=== PATIENT | male | born 1950 | race Caucasian/White ===

== ENCOUNTER 2017-05-16 12:24 | Inpatient (IN) | payer MEDICARE ==
[2017-05-16] MEDS ORDERED: ISOVUE-370 76%-LOCM 1 ML ONE (12:35)
[2017-05-16 12:59] LABS: Bilirubin Negative (Negative); Blood, Urine Small (Negative); Clarity CLEAR (Clear); Glucose, Urine (Dipstick) Negative (Negative); Leukocyte Negative (Negative); Nitrite Negative (Negative); Protein, Urine (Dipstick) Negative (Neg-Trace); pH, Urine 6.5 (5.0-9.0)
[2017-05-16 13:10] LABS: Bacteria/HPF None Seen HPF (None Seen); Hyaline Casts/LPF 0-3 HYALINE CAST LPF (0-3 Hyaline); Squamous Epithelial None Seen HPF (0-3); WBC/HPF 0-3 HPF (0-3)
[2017-05-16 13:12] LABS: #Basophils 0.1 thou/uL (0.0-0.2); #Eosinphils 0.2 thou/uL (0.0-0.7); #Lymphocytes 1.2 thou/uL (1.20-3.40); #Monocytes 0.8 thou/uL (0.11-0.59); %Basophils 1.4 % (0.0-1.0); %Eosinophils 1.7 % (0.0-10.0); %Lymphocytes 11.5 % (21.0-51.0); %Monocytes 7.7 % (0.0-10.0); %Neutrophils 77.8 % (42.0-75.0); Hemoglobin 15.8 g/dL (14.0-18.0); Mean Corpuscular HGB CONC 30.8 g/dL (32.0-36.0); Mean Corpuscular Hemoglobin 30.6 pg (27.0-31.0); Mean Corpuscular Volume 99.2 fl (80.0-94.0); Mean Platelet Volume 7.7 fL (7.4-10.4); Platelet Count 215 thou/uL (130-400); RBC Distribution Width 12.4 % (11.5-14.5); Red Blood Cell (RBC) Count 5.18 mill/uL (4.70-6.10); White Blood Cell (WBC) Count 10.3 thou/uL (4.8-10.8)
--- NOTE | 2017-05-16 13:37 | RAD ---
FRONTAL RADIOGRAPH CHEST PORTABLE UPRIGHT: Date: 05-16-17 Comparison: 02-01-10 History: Tachycardia. FINDINGS: There is new density in the right lung base. The right hemidiaphragm is elevated. New density is seen medially within the right lung base in the right infrahilar region. There is also new blunting of th e right costophrenic angle. There is increased linear interstitial density bilaterally with pulmonary hyperinflation. IMPRESSION: New pleural and parenchymal opacity in the right lung base suggests pleural effusion and possible mil d volume loss and/or infectious pneumonitis. Recommend follow up PA and lateral imaging of the chest following treatment to document resolution. POS: ANGEL
[2017-05-16 13:43] LABS: ALT (SGPT) 34 U/L (8-55); AST (SGOT) 24 U/L (5-34); Albumin 4.3 g/dL (3.4-4.8); Alkaline Phosphatase 104 U/L (40-150); BUN (Urea Nitrogen) 20 mg/dL (8.4-25.7); Bilirubin, Total 0.5 mg/dL (0.2-1.2); CK (CPK) 134 U/L (30-200); Calc. Creatinine Clearance 0 mL/min (70-130); Calcium 9.7 mg/dL (7.8-10.44); Estimated GFR-MDRD Greater than 90; Globulin 3.2 g/dL (2.4-3.5); Glucose 130 mg/dL (80-115); Lipase 20 U/L (8-78); Protein, Total 7.5 g/dL (5.8-8.1); Troponin I 0.092 ng/mL (< 0.028)
[2017-05-16 13:49] LABS: CKMB 7.6 ng/mL (0-6.6)
--- NOTE | 2017-05-16 13:53 | ULT ---
VENOUS DOPPLER ULTRASOUND OF THE LEFT LOWER EXTREMITY: HISTORY: A 66-year-old male with left lower leg edema and redness, pain. TECHNIQUE: Rader scale, color flow, and spectral Doppler imaging of the deep venous system of the left lower extr emity was performed. FINDINGS: There is good flow, compression, and augmentation noted in the left common femoral, femoral, deep fem oral, popliteal, posterior tibial, and greater saphenous veins. IMPRESSION: No evidence of deep vein thrombosis in the left lower extremity. POS: ANGEL
[2017-05-16 13:55] LABS: Chloride 95 mmol/L (98-107); Potassium 4.2 mmol/L (3.5-5.1); Sodium 142 mmol/L (136-145)
[2017-05-16 14:47] LABS: Anion Gap 13 mmol/L (10-20)
[2017-05-16 14:58] LABS: Carbon Dioxide 35 mmol/L (23-31)
--- NOTE | 2017-05-16 15:37 | CT ---
CT PULMONARY ANGIOGRAM WITH IV CONTRAST AND 3D POSTPROCESSIN05/16/17 HISTORY: Shortness of breath and increased fatigue, lower extremity edema. FINDINGS: There is filling defect in the contrast opacified branch of the right lower lobes. This is consistent with pulmonary embolism. Thoracic aorta demonstrates no evidence of dissection or aneurysm. No pleur al or pericardial effusions are seen. Emphysematous changes are present in the lung crawley. There are mild infiltrates versus atelectatic changes at the lung bases, right greater than left. There are de generative changes in the spine. IMPRESSION: Findings are consistent with pulmonary embolism in the right lower lobe. Discussed over the telephone with the ER physician, Dr. Ilene Mora at 3 p.m. POS: ANGEL
[2017-05-16] MEDS ORDERED: Furosemide 40 MG/4 ML VIAL ONE (16:56)
[2017-05-16] MEDS ORDERED: Enoxaparin Sodium 100 MG/ML SYRINGE ONE (16:57)
[2017-05-16 17:12] LABS: Lactic Acid 0.6 mmol/L (0.5-2.2)
[2017-05-16 17:21] LABS: Troponin I 0.094 ng/mL (< 0.028)
[2017-05-16] MEDS ORDERED: Melatonin 3 MG TAB PO PRN (17:22)
[2017-05-16 18:00] LABS: CKMB 8.5 ng/mL (0-6.6)
[2017-05-16 18:51] LABS: Troponin I 0.088 ng/mL (< 0.028)
[2017-05-16] MEDS ORDERED: Nicotine 14 MG PATCH TD SCH (19:35)
[2017-05-16] MEDS ORDERED: Ondansetron HCl/PF 4 MG/2 ML Vial IVP PRN (19:35)
[2017-05-16] MEDS ORDERED: Calcium Carbonate 500 MG ChewTAB PO PRN (19:35)
[2017-05-16] MEDS ORDERED: Ondansetron ODT 4 MG TAB PO PRN (19:35)
--- NOTE | 2017-05-16 20:26 | HP ---
DATE OF ADMISSION: 05/16/2017 For full history and physical exam please see, Dr. Sue Dumas's dictated H&P. Portions of the histo ry and physical has been repeated by myself and I am in agreement with her assessment and plan as doc umented. HISTORY OF PRESENT ILLNESS: In brief, this patient is a 66-year-old gentleman with a history of rheu matoid arthritis who presents with progressive shortness of breath, fatigue, and lower extremity swel ling. Per the 's report, patient has been progressively declining in status since approximately February when he had some unspecified upper respiratory infection. However, of note, they reported t hat over the last 2 weeks, patient has had progressive shortness of breath with minimal exertion as w ell as lower extremity edema. Over the last 2 days, they reported that his bilateral lower extremiti es become red and painful to the touch. Patient denies any chest pain, palpitations during this faustino od. He, otherwise, reports he has no medical problems and was healthy. PHYSICAL EXAMINATION: GENERAL: Patient is alert and oriented x4 in no apparent distress. He is an obese gentleman. CARDIOVASCULAR: Cardiac exam revealed distant heart sounds. Mildly tachycardic, but regular rhythm. RESPIRATORY: Lungs were poor air movement, but this is likely secondary to body habitus. No wheezes , rales, or rhonchi auscultated. ABDOMEN: Soft, nontender to palpation. Bowel sounds present x4 quadrants. EXTREMITIES: Lower extremities revealed bilaterally equally erythematous lower extremities to the mi d-alvarado. Patient had 3+ pitting edema to the level of the knee bilaterally. Mildly tender to palpati on. Pulses in the dorsalis pedis were equal bilaterally. No palpable cord. LABORATORY DATA: 1. CBC: WBC 10.3, H&H 15.8 and 51.3, platelets 215. 2. Coags showed a D-dimer of 0.90. BMP: Sodium 142, potassium 4.2, chloride 95, bicarbonate 35, BU N 20, creatinine 0.83, glucose 130, lactic acid 2.1. LFTs were overall normal. Cardiac enzymes show ed CK-MB of 7.6, troponin 0.92, and a BNP of 186. 3. Chest x-ray revealed new pleural and parenchymal opacity in the right lung base suggesting pleura l effusion, possible mild volume loss, and/or infectious pneumonitis. 4. Chest and thorax CT angiogram showed pulmonary embolism in the right lower lobe due to a filling defect in the opacified branch of the right lower lobes. 5. Vascular ultrasound of the left lower extremity revealed no evidence of DVT. ASSESSMENT AND PLAN: A 66-year-old gentleman presenting with several weeks of progressive shortness of breath and lower extremity edema. 1. Likely new-onset of congestive heart failure, unspecified subtype. Due to the patient's elevated BNP in his symptoms of worsening edema associated with shortness of breath on exertion, but this pat ient is likely in some new-onset congestive heart failure. Possibly could be due to hypertensive dis ease that is currently untreated. Patient will be admitted to telemetry. We will obtain strict I's and O's, and we will obtain an echocardiogram. Patient will be started on Lasix therapy to help with his severe lower extremity edema. Currently, there is no evidence of volume overload in the lungs, which could point to more right-sided heart failure. However, the patient has no evidence of chronic pulmonary disease on imaging, I do not show like pulmonary embolism has been found during this hospi talization as large enough to result in acute-sided right heart failure. Likely Cardiology consult. 2. Pulmonary embolism as mentioned above, this is not large, but the patient will be started on anti coagulation. Obtain echo as above. Patient had left lower extremity Doppler, which did not reveal a ny presence of any deep venous thrombosis, but his right lower extremity does appear to be larger and we will obtain Dopplers of that leg as well. 3. Elevated CK-MB is likely secondary to the demand ischemia or his pulmonary embolism. Patient domenico l be admitted to telemetry. We will repeat EKG and will trend enzymes. Likely Cardiology consult as above. 4. Hypertension: Patient does not currently have a known diagnosis of hypertension, his blood press ures are highly elevated during this hospitalization. We will start the patient on mild diuresis as well as medications help to get his blood pressure under control.
[2017-05-16 21:21] LABS: Hemoglobin A1c 5.5 % (4.0-6.0)
[2017-05-16 21:43] LABS: Troponin I 0.092 ng/mL (< 0.028)
--- NOTE | 2017-05-16 21:49 | HP-2 ---
CODE STATUS: DNR. This has been discussed with him and his who states they have DNR paperwork at home. PRIMARY CARE PHYSICIAN: Dhruv pagan, none. ATTENDING PHYSICIAN: Andrew Corey MD RESIDENT: Sue Dumas M.D. HISTORIAN: The patient and his . CHIEF COMPLAINT: Bilateral lower extremity redness, acutely worsening. HISTORY OF PRESENT ILLNESS: This is a 66-year-old male with past medical history of fibromyalgia who has not seen a doctor in about 6 months. He presents for acutely worsening bilateral lower extremity erythema this morning. He does report progressive bilateral lower extremity swelling, redness, fatigue, dyspnea with minimal exertion for about 3 months now. The patient states in about February, he came down with a cold or flu-like illness and has never really been able to recover to his same energy level since then. The patient denies PND and orthopnea; however, does note that he has been sleeping in an upright position for about 10 years now. The patient notes for the last approximately 3 weeks, he has been mostly sitting around in a chair because he has had very little energy to do anything. In the ER, the patient had a left lower extremity venous Doppler that did not show DVT. However, he did show a right lower subsegmental pulmonary embolism and was, therefore, admitted to the medicine service. He was given aspirin 325 mg in the ER as well as therapeutic Lovenox. PAST MEDICAL HISTORY: Fibromyalgia. PAST SURGICAL HISTORY: None. ALLERGIES: PENICILLIN. MEDICATIONS: None. FAMILY HISTORY: The patient reports a mom who had coronary artery disease and of a heart attack at age 72. SOCIAL HISTORY: The patient reports a 33-fozy-htay smoking history. He currently smokes about 3 to 4 cigarettes a day. The patient reports social alcohol use. Denies drug use. 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 REVIEW OF SYSTEMS: General: He denies fevers, chills; however, he does report some sleep change states that he has trouble sleeping at night and otherwise the patient reports fatigue as noted above. Eyes: No vision changes or eye pain. ENT: Reports chronic nasal congestion and rhinorrhea. He reports chronic sinus drainage. Respiratory: Reports a cough each morning; however, not necessarily worsening throughout the day. He does report some shortness of breath and exertional dyspnea. Cardiovascular: Denies chest pain, both today and in the remote history. He is positive for the edema as noted above. Denies PND or orthopnea. Gastrointestinal: Denies nausea, vomiting, diarrhea, constipation or abdominal pain. Genitourinary: Denies dysuria or polyuria. Skin: Denies rashes or lesions, but does note the erythema in his bilateral lower extremities. Musculoskeletal: Denies pain or tenderness. Neurologic: Denies weakness or numbness. Psychiatric: Negative. PHYSICAL EXAMINATION: VITAL SIGNS: Blood pressure is 196/98, pulse 100, respirations 25, T-max 98.7, pulse ox 95% on 2 liters, was 86% on room air upon admission. GENERAL: The patient is alert and oriented x4 and really no acute distress; however, he is normally speaking about 4 to 5 word sentences. He is appropriately interactive. EYES: PERRLA, EOMI. ENT: Oropharynx within normal limits; however, he does have some evidence of chronic sinus drainage in the posterior oropharynx. NECK: Supple, without lymphadenopathy or thyromegaly. CARDIOVASCULAR: Regular rate and rhythm without any murmurs noted. RESPIRATORY: Normal effort and no retractions; however, it is noted that he has poor air movement bilaterally with some end expiratory wheezes. SKIN: There is no cyanosis; however, his bilateral lower extremities are warm to the touch and erythematous from about the knee to the ankle. ABDOMEN: Soft and nontender to palpation with bowel sounds present. EXTREMITIES: No clubbing or cyanosis; however, there is 3+ pitting edema in the bilateral lower extremities. MUSCULOSKELETAL: Structure is within normal limits. Strength 5/5 and he has full range of motion. NEUROLOGIC: No focal deficits. Sensation within normal limits and cranial nerves II-XII appear to be intact. LABORATORY DATA: 1. White blood cells 10.3, hemoglobin 15.8, hematocrit 51.3, platelets 215. 2. Sodium 142, potassium 4.2, chloride 95, bicarbonate 35, BUN 20, creatinine 0.83, glucose is 130. GFR is greater than 90. 3. Calcium 9.7, AST 24, ALT 34, alkaline phosphatase 104, total bilirubin 0.5, total protein 7.5, albumin 4.3. Lactic acid 2.1. BNP is 185. 4. CK-MB is 7.6, troponin is 0.092. 5. His UA does shows small blood and 11 to 20 red blood cells. His D-dimer is 0.9. 6. EKG showed little artifact and this being repeated from the ER. 7. Chest x-ray showed new pleural and parenchymal opacity in the right lung base. 8. Left lower extremity Doppler shows no evidence of DVT. 9. CTA of the chest with and without contrast shows pulmonary embolism in the right lower lobe. ASSESSMENT AND PLAN: This is a 66-year-old male with progressive shortness of breath and lower extremity edema. 1. Suspected new onset congestive heart failure. - echo has been ordered as well as a TSH and A1c and lipid panel. We will trend his troponins and CK-MB. We will treat lower extremity edema symptomatically with Lasix 40 mg IV given now and we will follow this again in the morning. We will follow strict I's and O's as well as 1800 mL fluid restriction. Further workup pending the echo results. We will schedule repeat Lasix in the morning. 2. Submassive pulmonary embolism. We will start the patient on therapeutic Lovenox, which has happened in the ER and transitioned to a different anticoagulant such as warfarin or a NOAC during hospitalization. 3. Indeterminate troponin and elevated CK-MB. We will trend and repeat his EKG as well as troponins and CK-MB. He has had no chest pain at this time or in the recent past. 4. Hypertension. The patient has received 40 mg of IV Lasix and we will consider other options acutely pending Lasix response. We will start him on lisinopril 20 mg in the morning. 5. Hematuria. We will repeat his UA during hospitalization. DISPOSITION AND LENGTH OF HOSPITAL STAY: Likely to be 3 days. Symptomatic medications will be provided. History and physical exam as well as management have been discussed with Dr. Corey, who is in agreement. ANA LUISA
[2017-05-16] MEDS: diphenhydrAMINE 50 MG CAP PO PRN (22:25)
--- NOTE | 2017-05-16 22:58 | ULT ---
RIGHT LOWER EXTREMITY VENOUS DUPLEX EXAM: 05/16/17 HISTORY: Leg pain and swelling. Edema. Redness. Real time color doppler evaluation of the right lower extremity is performed from groin to calf. This includes evaluation of the common femoral, superficial and profunda femoral, saphenous, popliteal, a nd trifurcation veins. This shows a patent deep venous system. There is normal compressibility and au gmentation. There is no evidence of DVT. IMPRESSION: No evidence of DVT of the right lower extremity. POS: ANGEL
[2017-05-17 01:57] LABS: Actual Bicarbonate (HCO3a) 44.8 mEq/L (22-26); Base Excess (BEa) 11.7 mEq/L (0 (+/-) 2.5); CO2 Tension 108.5 mmHg (35.0-45.0); Hematocrit-ABG 55.4 % (42.0-52.0); Hemoglobin (Hb) 15.6 g/dL (14.0-18.0); O2 Tension (PaO2) 69.2 mmHg (80.0-100.0); pH, Arterial 7.23 (7.35-7.45)
[2017-05-17 01:58] LABS: ALV-art Gradient 50.055 (0-20); Calcium, Ionized 1.2 mmol/L (1.12-1.30); Puncture Site LRA
[2017-05-17] MEDS ORDERED: Furosemide 40 MG/4 ML VIAL SLOW IVP SCH (02:00)
[2017-05-17 02:22] LABS: Anion Gap 17 mmol/L (10-20); BUN (Urea Nitrogen) 19 mg/dL (8.4-25.7); Calc. Creatinine Clearance 141 mL/min (70-130); Calcium 9.7 mg/dL (7.8-10.44); Carbon Dioxide 37 mmol/L (23-31); Chloride 93 mmol/L (98-107); Estimated GFR-MDRD 88; Glucose 144 mg/dL (80-115); Potassium 4.9 mmol/L (3.5-5.1); Sodium 142 mmol/L (136-145)
[2017-05-17 02:27] LABS: Troponin I 0.062 ng/mL (< 0.028)
[2017-05-17 02:32] LABS: CKMB 9.8 ng/mL (0-6.6)
--- NOTE | 2017-05-17 02:35 | PDOC.EVN ---
Event Note - Event Note Event Note: Keely burch called about 01:45 due to AMS, tachycardia, and increasing SOB. Residents responded. Pt sitting up at bedside. BP 140/80s, HR 120s, resp 24, O2 92% on 4L NC. Pt A&O x1. Auscultation revealed diminished breath sounds bilaterally with shallow inspiratory effort. 3+ pitting edema up to knees bilaterally. POC glucose wnl. Stat ABG, BMP, cardiac enzymes, EKG and CXR ordered. Bedside EKG revealed sinus tachycardia. CXR showed worsening bilateral effusions with blunting of angles. Lasix 40 mg IV ordered. ABG revealed respiratory acidosis with pH 7.23 and pCO2 108. Decision was made to place pt on bipap and transfer to IMCU. Pt's was at bedside, kept informed and was agreeable with plan. Will continue to monitor closely. <Adeel Parker - Last Filed: 05/17/17 02:27> Attending Addendum - Attending Addendum I personally evaluated the patient and discussed the management with Dr. Parker. Events reviewed. Labs and x-ray reviewed. CXR with worsening pleural effusion; now bilateral. ABG with [id number]. Agree with transfer to IMCU and trial of BiPAP. Additional lasix dose given. Monitor I/Os. Continue lovenox for PE. <Aditi Jennings - Last Filed: 05/17/17 02:39>
[2017-05-17 03:47] LABS: Bilirubin Negative (Negative); Blood, Urine Moderate (Negative); Clarity CLEAR (Clear); Glucose, Urine (Dipstick) Negative (Negative); Leukocyte Negative (Negative); Nitrite Negative (Negative); Protein, Urine (Dipstick) 30 mg/dL (Neg-Trace); Specific Gravity, Urine 1.026 (1.002-1.036); Urobilinogen 0.2 mg/dL (0.2-1.0); pH, Urine 5.5 (5.0-9.0)
[2017-05-17 03:48] LABS: Bacteria/HPF None Seen HPF (None Seen); Hyaline Casts/LPF 0-3 HYALINE CAST LPF (0-3 Hyaline); Pathc Cast-AUWi Flag 0.27 (0-2.49); Squamous Epithelial None Seen HPF (0-3); WBC/HPF 0-3 HPF (0-3)
[2017-05-17 05:15] LABS: Hemoglobin 15.3 g/dL (14.0-18.0); Platelet Count 197 thou/uL (130-400)
[2017-05-17 05:20] LABS: Anion Gap 12 mmol/L (10-20); BUN (Urea Nitrogen) 22 mg/dL (8.4-25.7); Calc. Creatinine Clearance 138 mL/min (70-130); Calcium 9.3 mg/dL (7.8-10.44); Carbon Dioxide 37 mmol/L (23-31); Chloride 95 mmol/L (98-107); Cholesterol 140 mg/dl (< 200 Desired); Estimated GFR-MDRD 86; Glucose 127 mg/dL (80-115); HDL Cholesterol 47 mg/dL (>60 Neg Risk); LDL Cholesterol, Calculated 66 mg/dL; Potassium 5.3 mmol/L (3.5-5.1); Sodium 139 mmol/L (136-145); Triglycerides 137 mg/dL (Less than 150)
--- NOTE | 2017-05-17 05:43 | PDOC.EVN ---
Event Note - Event Note Event Note: Follow up for Code green from earlier in night. Patient's HR now in 80s, BP 130s /70s, and O2 93% on BIPAP. Auscultation reveal diminished breath sounds bilaterally. Patient is overall fatigued and mentation not tested at this time. I&Os not documented as of yet, but hanna in place. Patient resting comfortably in bed. not at bedside at this time. Ordered repeat ABG for this morning. Will continue current plan of care.
[2017-05-17] MEDS: Furosemide 40 MG/4 ML VIAL SLOW IVP SCH ×2 (06:30→13:59)
--- NOTE | 2017-05-17 07:50 | RAD ---
PORTABLE UPRIGHT FRONTAL CHEST RADIOGRAPH: Date: 05-17-17 Comparison: 05-16-17 History: Code Green patient. Unresponsive patient. FINDINGS: There is increased density within the right lung base with obscuration of the right hemidiaphragm and right heart border as well as blunting of the right costophrenic angle suggesting nonspecific pleura l and parenchymal opacity, slightly worse since the prior exam. There is mild increased linear inters titial density, stable. No pneumothorax is seen. No lobar consolidation or alveolar edema. IMPRESSION: Increased pleural and parenchymal opacity in the right lung base, nonspecific and slightly worsened. Continued follow up advised. POS: ANGEL
[2017-05-17] MEDS: Enoxaparin Sodium 120 MG/0.8 ML SYRINGE SC SCH ×2 (08:45→20:08)
[2017-05-17] MEDS: Nicotine 14 MG PATCH TD SCH (08:47)
[2017-05-17] MEDS: Lisinopril 20 MG TAB PO SCH (08:48)
--- NOTE | 2017-05-17 08:49 | PDOC.FM ---
- Subjective Subjective: Patient sleeping soundly when I visited him this morning. WHen awoken, he seemed very confused and did not want to keep the bipap on. He was oriented to person only and thought he was in [place] but upon requestioning knew he was in [place]. He denies chest pain or SOB. He just states that he is good. He apologized several times for cursing at the nurse. A code green was called on him last night due to confusion. He maintains O2 sats well however his bicarb on ABG found to be 102. Decision made to place bipap and move to IMCU at that time. - Objective MAR Reviewed: Yes Vital Signs & Weight: Vital Signs (12 hours) Temp Pulse Pulse Resp Resp BP BP 05/17/17 08:19 97.5 F L 96 16 05/17/17 07:47 97.5 F L 96 16 126/63 05/17/17 04:26 98 22 H 111/56 L 05/17/17 02:35 99.8 F H 98 22 H 05/17/17 02:30 99.8 F H 120 H 26 H 142/78 H 05/17/17 02:20 110 H 05/17/17 01:55 127 H 20 151/78 H 05/17/17 01:36 119 H 20 151/78 H Pulse Ox Pulse Ox Pulse Ox 05/17/17 08:19 96 05/17/17 07:47 93 L 05/17/17 04:26 93 L 05/17/17 02:35 90 L 05/17/17 02:30 90 L 05/17/17 02:20 05/17/17 01:55 94 L 05/17/17 01:36 89 L 93 L Weight Weight 109.044 kg I&O: 05/16/17 05/17/17 05/18/17 06:59 06:59 06:59 Output Total 650 Balance -650 Result Diagrams: 05/17/17 04:18 05/17/17 04:18 <Sue Dumas - Last Filed: 05/17/17 08:46> - Objective Vital Signs & Weight: Vital Signs (12 hours) Temp Pulse Pulse Resp Resp BP BP 05/17/17 11:42 75 05/17/17 11:00 98.2 F 92 18 05/17/17 09:17 114 H 05/17/17 08:48 159/73 H 05/17/17 08:19 97.5 F L 96 16 05/17/17 07:47 97.5 F L 96 16 05/17/17 04:26 98 22 H 05/17/17 02:35 99.8 F H 98 22 H 05/17/17 02:30 99.8 F H 120 H 26 H 05/17/17 02:20 110 H 05/17/17 01:55 127 H 20 05/17/17 01:36 119 H 20 151/78 H BP Pulse Ox Pulse Ox Pulse Ox 05/17/17 11:42 05/17/17 11:00 141/67 H 93 L 05/17/17 09:17 05/17/17 08:48 05/17/17 08:19 96 05/17/17 07:47 126/63 93 L 05/17/17 04:26 111/56 L 93 L 05/17/17 02:35 90 L 05/17/17 02:30 142/78 H 90 L 05/17/17 02:20 05/17/17 01:55 151/78 H 94 L 05/17/17 01:36 89 L 93 L Weight Weight 109.044 kg I&O: 05/16/17 05/17/17 05/18/17 06:59 06:59 06:59 Output Total 650 Balance -650 Result Diagrams: 05/17/17 10:14 05/17/17 04:18 <Andrew Corey - Last Filed: 05/17/17 12:12> Phys Exam - Physical Examination Constitutional: NAD poor air movement with diminished breath sounds in BLL. some mild end expiratory wheezes. Cardiovascular: RRR, no significant murmur Gastrointestinal: soft, non-tender, positive bowel sounds 3+ pitting edema in BLE Neurological: non-focal, normal sensation, moves all 4 limbs Psychiatric: normal affect Deviation from normal: only oriented appropriately to person, can recall place if requestioned. <Sue Dumas - Last Filed: 05/17/17 08:46> Dx/Plan (1) Acute hypercapnic respiratory failure Code(s): J96.02 - ACUTE RESPIRATORY FAILURE WITH HYPERCAPNIA Status: Acute Plan: Acute worsening overnight with pCO2 elevation to 102. Repeat ABG this AM. Satting well on 2 lts NC at this time, albeit suspect chronic CO2 retention. Likely underlying lung disease with 40 pk year smoking hx along with current PE. Will offer trial of duoneb. Would also benefit from outpt sleep study. (2) Suspected congestive heart failure Code(s): Z03.89 - ENCNTR FOR OBS FOR OTH SUSPECTED DISEASES AND COND RULED OUT Status: Acute Plan: pending echo. Will treat with aggressive diuresis- IV lasix BID. lipid panel wnl (LDL <100) TSH wnl. (3) HTN (hypertension) Code(s): I10 - ESSENTIAL (PRIMARY) HYPERTENSION Status: Acute Plan: initiate lisinopril 20 mg (4) Pulmonary embolism Code(s): I26.99 - OTHER PULMONARY EMBOLISM WITHOUT ACUTE COR PULMONALE Status : Acute Plan: on therapeutic lovenox. Will hold off on NOAC until further evaluation for suspected CHF. (5) Elevated troponin I measurement Code(s): R74.8 - ABNORMAL LEVELS OF OTHER SERUM ENZYMES Status: Acute Plan: likely demand ischemia with PE. downtrending trop (6) Hematuria Code(s): R31.9 - HEMATURIA, UNSPECIFIED Status: Acute Plan: needs to see urology outpt. (7) Obesity (BMI 30-39.9) Code(s): E66.9 - OBESITY, UNSPECIFIED Status: Chronic Plan: A1C 5.5 (8) Tobacco abuse Code(s): Z72.0 - TOBACCO USE Status: Chronic Plan: nicotine offered and smoking cessation encouraged. <Sue Dumas - Last Filed: 05/17/17 08:46> Attending Addendum - Attending Addendum I personally evaluated the patient and discussed the management with Dr. Dumas. I agree with the History, Examination, Assessment and Plan documented above with any addition or exceptions noted below. Patient had acute decline overnight and is now hypoxic and hypercapnic requiring Bipap therapy. His ABG is not significantly improved with this therapy. Continue to treat with diuretics for this likely new onset CHF. Echo pending. Cardiology and Pulm on board. He is diuresing well. Mentation somewhat improved, will give Haldol for agitation on Bipap. Will clarify code status with though he and her both explicitly said yesterday that he is a DNR and that they have signed papers at home. <Andrew Corey R - Last Filed: 05/17/17 12:12>
[2017-05-17 09:21] LABS: Actual Bicarbonate (HCO3a) 46.2 mEq/L (22-26); Base Excess (BEa) 13.6 mEq/L (0 (+/-) 2.5); CO2 Tension 105.9 mmHg (35.0-45.0); Hematocrit-ABG 52.9 % (42.0-52.0); Hemoglobin (Hb) 14.9 g/dL (14.0-18.0); O2 Tension (PaO2) 64.6 mmHg (80.0-100.0); pH, Arterial 7.26 (7.35-7.45)
[2017-05-17 09:22] LABS: ALV-art Gradient 32.785 (0-20); Calcium, Ionized 1.2 mmol/L (1.12-1.30); Puncture Site L.R.
[2017-05-17] MEDS ORDERED: Haloperidol Lactate 5 MG/ML VIAL SLOW IVP SCH (10:15)
[2017-05-17 10:44] LABS: #Eosinphils 0.1 thou/uL (0.0-0.7); #Lymphocytes 0.7 thou/uL (1.20-3.40); #Monocytes 0.9 thou/uL (0.11-0.59); #Neutrophils 9.7 thou/uL (1.40-6.50); %Basophils 0.1 % (0.0-1.0); %Eosinophils 0.7 % (0.0-10.0); %Lymphocytes 6.5 % (21.0-51.0); %Monocytes 7.9 % (0.0-10.0); %Neutrophils 84.7 % (42.0-75.0); Hemoglobin 14.5 g/dL (14.0-18.0); MDiff Complete? YES; Macrocytosis SLIGHT = 6-15 cells (100X) (0-5/hpf); Mean Corpuscular HGB CONC 29.5 g/dL (32.0-36.0); Mean Corpuscular Hemoglobin 29.7 pg (27.0-31.0); Mean Platelet Volume 7.4 fL (7.4-10.4); PLT Morphology Comment Appears Adequate; Platelet Count 209 thou/uL (130-400); RBC Distribution Width 12.4 % (11.5-14.5); Red Blood Cell (RBC) Count 4.87 mill/uL (4.70-6.10); Stomatocytes MODERATE= 6-15 cells (100X) (0-1/hpf); White Blood Cell (WBC) Count 11.5 thou/uL (4.8-10.8)
--- NOTE | 2017-05-17 12:47 | PDOC.EVN ---
Event Note - Event Note Event Note: I spoke with patient's about his current status. I informed her of his decompensation and respiratory status and that intubation would be recommended. Risks that he may need a tracheostomy upon weaning were discussed and she stated she would want him to be intubated for this acute decompensation in respiratory status. She is currently in [place] and will try to be here as soon as her tire is repaired. She was thankful for the call. I have discussed this with Dr. Aguilera and plan to transfer him to the ICU and attempt intubation later this afternoon. We will repeat ABG at 1 pm and make decision pending this.
[2017-05-17 13:14] LABS: pH, Arterial 7.28 (7.35-7.45)
[2017-05-17 13:15] LABS: Actual Bicarbonate (HCO3a) 45.9 mEq/L (22-26); Base Excess (BEa) 14.2 mEq/L (0 (+/-) 2.5); CO2 Tension 99.2 mmHg (35.0-45.0); Calcium, Ionized 1.2 mmol/L (1.12-1.30); Hematocrit-ABG 49.6 % (42.0-52.0); Hemoglobin (Hb) 14.3 g/dL (14.0-18.0); O2 Tension (PaO2) 65.5 mmHg (80.0-100.0)
[2017-05-17 13:16] LABS: Puncture Site L.R.
[2017-05-17] MEDS ORDERED: Carvedilol 3.125 MG TAB PO SCH (18:45)
--- NOTE | 2017-05-17 21:12 | CON ---
DATE OF CONSULTATION: 05/17/2017 HISTORY OF PRESENT ILLNESS: Jt Cedillo is a 66-year-old white male, who was in good health until 02/2017. His states that he had an upper respiratory infection complicated by possible sinusitis. He then began to have problems with his legs becoming more edematous, more red, and painful. This progressively worsened to where he started to have increased shortness of breath over the past 3-4 days with minimal exertion. He also could not lie flat in bed. Ultimately, he came to the emergency room, was placed on BiPAP, and has been diuresed with improvement in his breathing. For a time, it was felt that he might need to be intubated and there was discussion in regards to that, because he is listed as DNR at the present time. He denies any chest discomfort. He denies any previous cardiac history. Chest CTA did reveal small pulmonary embolism and he has been placed on Lovenox. PAST MEDICAL HISTORY: Fibromyalgia. No history of hypertension, diabetes, or hypercholesterolemia. MEDICATIONS: None. ALLERGIES: PENICILLIN. OPERATIONS: None. SOCIAL HISTORY: Smokes 1 to 1-1/2 packs per day. He does not drink alcohol. FAMILY HISTORY: Mother of heart attack at age 72. REVIEW OF SYSTEMS: Twelve-point review of systems is otherwise unremarkable. PHYSICAL EXAMINATION: VITAL SIGNS: Blood pressure 155/80, pulse of 106. HEENT: PERRL. NECK: Supple. CHEST: Reveals distant breath sounds. CARDIOVASCULAR: S1 and S2 are normal without any S3, S4, or murmurs. ABDOMEN: Obese. Normal bowel sounds without tenderness or organomegaly. EXTREMITIES: Revealed bilateral erythema and warmth to the knee. 2 to 3+ pretibial edema. NEUROLOGIC: Grossly intact. SKIN: Warm and dry. LABORATORY DATA: EKG revealed sinus tachycardia with a rate of 110 per minute with incomplete right bundle-branch block. Chest x-ray reveals cardiomegaly, possible right effusion, increased pulmonary vascularity. Hemoglobin 14.5, hematocrit 49, white count 11,500, platelets 209,000. D-dimer is 0.90. PH of 7.23, pCO2 of 108.5, pO2 of 69.2. The pO2 is improved to 99.2. Sodium 139, potassium 5.3, chloride 95, carbon dioxide 37, BUN 22, creatinine 0.89. CK-MB 9.8, troponin I 0.094, CK 134. Cholesterol 140, triglycerides 137, HDL 47, LDL 66. TSH is normal. BNP is 185.9. IMPRESSION: 1. Acute respiratory failure with significant hypercapnia, probably related to chronic obstructive pulmonary disease exacerbation. 2. Possible cardiomyopathy. He has a history of probable viral syndrome in February and worsening edema, as well as increased shortness of breath. 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 3. Probable hypertension. 4. Demand ischemia. 5. Pulmonary embolism in the right lower lobe; however, venous Doppler study was negative for DVT. 6. Smoker. PLAN: The patient will continue to be diuresed. With his current blood pressure, he will be started on low-dose carvedilol. He will be continued with Lovenox 1 mg/kg b.i.d.; however, I doubt that it is playing a significant role in his current dyspnea. Echocardiogram will be performed to assess left ventricular function. MTDD
[2017-05-17] MEDS: Haloperidol Lactate 5 MG/ML VIAL IM PRN (21:13)
[2017-05-17] MEDS: diphenhydrAMINE 50 MG CAP PO PRN (23:36)
[2017-05-18] MEDS: Haloperidol Lactate 5 MG/ML VIAL IM PRN ×2 (02:46→07:56)
[2017-05-18 04:58] LABS: Hemoglobin 14.3 g/dL (14.0-18.0); Platelet Count 183 thou/uL (130-400)
[2017-05-18 05:15] LABS: BUN (Urea Nitrogen) 25 mg/dL (8.4-25.7); Calc. Creatinine Clearance 125 mL/min (70-130); Estimated GFR-MDRD 84; Glucose 109 mg/dL (80-115)
[2017-05-18] MEDS: Furosemide 40 MG/4 ML VIAL SLOW IVP SCH (05:18)
[2017-05-18 05:26] LABS: Anion Gap 16 mmol/L (10-20); Carbon Dioxide 37 mmol/L (23-31); Chloride 91 mmol/L (98-107); Potassium 4.6 mmol/L (3.5-5.1); Sodium 139 mmol/L (136-145)
--- NOTE | 2017-05-18 06:05 | CON ---
DATE OF CONSULTATION: 05/17/2017 HISTORY OF PRESENT ILLNESS: Mr. Cedillo is a 66-year-old male who according to his is very functional prior to this admission. He presented with 3 months of lower extremity erythema according to the but then developed change in mental status after he was admitted, so he was transferred to the critical care intermediate care unit. He had a CT angiogram for this change in mental status and hypoxemia, which showed a filling defect in his right lower lobe. Doppler venography showed nothing in his legs, but only his left leg was ultrasounded. Follow up ultrasound of his right lower extremity was done, which did not show a clot either. According to the , he has been reasonably healthy. He actually has a history of fibromyalgia and was seeing one of the pain physicians in [facility], but he is no longer seeing that physician. He has not been hospitalized here before. PAST MEDICAL HISTORY: Remarkable for being told he had asbestosis in the past. PAST SURGICAL HISTORY: He has never had any operations. SOCIAL HISTORY: He drinks occasionally. He is a smoker. He and his split a pack of cigarettes every day. He smokes more than she does. No history of drug use. ALLERGIES: Reported allergy to PENICILLIN. FAMILY HISTORY: Lung disease at an early age. PHYSICAL EXAMINATION: VITAL SIGNS: He had noninvasive ventilation placed. He is afebrile this evening, his heart rate is 104, respiratory rate is 22, oximetry is 90% on BiPAP. Apparently, around 6:00, he was switched to 3 liter nasal cannula. Blood pressure 155/80. HEAD AND NECK: Unremarkable. LUNGS: Clear and distant. HEART: Regular rhythm. ABDOMEN: Soft. EXTREMITIES: Without asymmetry. LABORATORY DATA: White count 11.5, hemoglobin 14.5, platelets 209,000. Sodium 139, potassium 5.3, chloride 95, bicarbonate 37, BUN 22, creatinine 0.89. Blood gas first pH 7.33, pCO2 of 190, second pH 7.26, pCO2 of 105, third pH 7.28, pCO2 of 99, pO2 of 65. IMPRESSION: 1. Obesity hypoventilation syndrome. 2. ? underlying obstructive lung disease. Once he is stable, he needs PFTs. 3. Ongoing tobacco use. 4. Deconditioning. 5. History of chronic pain and fibromyalgia. 6. Reported history of asbestosis. Reviewed his chest radiograph, he appears to have an elevated right hemidiaphragm and it is hazy in its right base. Reviewed CT of his chest, I am not sure if this is a true positive pulmonary embolism, but we will have to treat this for a minimum of 3 months. Bibasilar atelectasis, some of this is created by his abdominal girth. I think he should stay on BiPAP overnight, then be reassessed in the morning with blood gas. This is a 50-minute consult, greater than 50% of the time spent coordinating care on the unit after interviewing family and examining the patient, reviewing all the radiographs. ANA LUISA
[2017-05-18] MEDS: Carvedilol 3.125 MG TAB PO SCH ×2 (07:55→16:28)
[2017-05-18] MEDS: Nicotine 14 MG PATCH TD SCH (09:14)
[2017-05-18] MEDS: Lisinopril 20 MG TAB PO SCH (09:14)
[2017-05-18] MEDS: Enoxaparin Sodium 120 MG/0.8 ML SYRINGE SC SCH ×2 (09:17→20:12)
--- NOTE | 2017-05-18 09:26 | PDOC.FM ---
- Subjective Subjective: Patient very agitated again this morning. He is disoriented, only knows name. He wants to get out of bed to urinate. No acute events overnight and remained on bipap all night. - Objective Vital Signs & Weight: Vital Signs (12 hours) Temp Pulse Resp BP BP Pulse Ox 05/18/17 09:14 117/60 05/18/17 08:00 98.3 F 95 28 H 98 05/18/17 07:20 98.3 F 95 28 H 139/70 98 05/18/17 04:00 97.2 F L 82 18 104/60 97 05/18/17 03:16 90 05/18/17 00:07 99.7 F H 104 H 22 H 157/65 H 97 05/17/17 22:10 99 Weight Weight 108.182 kg I&O: 05/17/17 05/18/17 05/19/17 06:59 06:59 06:59 Intake Total 1335 Output Total 650 2625 Balance -650 -1290 Result Diagrams: 05/18/17 04:39 05/18/17 04:39 <Sue Dumas - Last Filed: 05/18/17 10:49> - Objective Vital Signs & Weight: Vital Signs (12 hours) Temp Pulse Resp BP BP Pulse Ox 05/18/17 09:14 117/60 05/18/17 08:00 98.3 F 95 28 H 98 05/18/17 07:20 98.3 F 95 28 H 139/70 98 05/18/17 04:00 97.2 F L 82 18 104/60 97 05/18/17 03:16 90 05/18/17 00:07 99.7 F H 104 H 22 H 157/65 H 97 Weight Weight 108.182 kg I&O: 05/17/17 05/18/17 05/19/17 06:59 06:59 06:59 Intake Total 1335 Output Total 650 2625 Balance -650 -1290 Result Diagrams: 05/18/17 04:39 05/18/17 04:39 <He Nam - Last Filed: 05/18/17 11:10> Phys Exam - Physical Examination agitated mild diffuse wheezing, very poor air movement, shallow breathing Cardiovascular: RRR, no significant murmur Gastrointestinal: soft, non-tender, positive bowel sounds 2+ pitting edema Deviation from normal: confused, only oriented to person. <Sue Dumas - Last Filed: 05/18/17 10:49> Dx/Plan (1) Acute hypercapnic respiratory failure Code(s): J96.02 - ACUTE RESPIRATORY FAILURE WITH HYPERCAPNIA Status: Acute Plan: Likely 2/2 underlying pumonary disease and KISHAN and obesity hypoventilation syndrome. On bipap 24 hrs now and ABG not improved this morning. Have recommended intubation and tracheostoomy with patient's and she agrees to proceed with this. Will discuss with Dr. Aguilera. (2) HTN (hypertension) Code(s): I10 - ESSENTIAL (PRIMARY) HYPERTENSION Status: Acute Plan: controlled on coreg and lisinopril (3) Pulmonary embolism Code(s): I26.99 - OTHER PULMONARY EMBOLISM WITHOUT ACUTE COR PULMONALE Status : Acute Plan: on therapeutic lovenox. Will hold off on NOAC until further evaluation for suspected CHF. (4) Elevated troponin I measurement Code(s): R74.8 - ABNORMAL LEVELS OF OTHER SERUM ENZYMES Status: Acute Plan: likely demand ischemia with PE. downtrending trop (5) Hematuria Code(s): R31.9 - HEMATURIA, UNSPECIFIED Status: Acute Plan: needs to see urology outpt but if cont to worsen may do it inpt.trend H/H (6) Obesity (BMI 30-39.9) Code(s): E66.9 - OBESITY, UNSPECIFIED Status: Chronic Plan: A1C 5.5 (7) Tobacco abuse Code(s): Z72.0 - TOBACCO USE Status: Chronic Plan: nicotine patch offered and smoking cessation encouraged. (8) Chronic acquired lymphedema Code(s): I89.0 - LYMPHEDEMA, NOT ELSEWHERE CLASSIFIED Status: Acute Plan: Cont lasix, some mild improvement with 3 liters off. ECHO does not reveal CHF as suspected. <Sue Dumas - Last Filed: 05/18/17 10:49> Attending Addendum - Attending Addendum I personally evaluated the patient and discussed the management with Dr. Dumas. I agree with and repeated the History, Examination, Assessment and Plan documented above with any addition or exceptions noted below. Patient with no complaints this morning, but disoriented. RRR s M, bilateral pitting LE edema with chronic changes Poor air movement throughout, no significant wheezes or crackles Protuberant abd, NTTP, BS+ A h/h RF: 2/2 obesity hypovent vs COPD exac vs other Continue nebs Plan for intubation with Dr. Aguilera NSTEMI: felt to be 2/2 demand, follow, medical management PE: therapeutic lovenox Hematuria: on therapeutic lovenox, no clots. Continue FC and monitor. If clotting off with begin CBI and consult urology. When extubated and stable will consider consultation as well Fina Nam MD <He Nam - Last Filed: 05/18/17 11:10>
[2017-05-18 10:07] LABS: pH, Arterial 7.26 (7.35-7.45)
[2017-05-18 10:09] LABS: Actual Bicarbonate (HCO3a) 47.3 mEq/L (22-26); CO2 Tension 107.2 mmHg (35.0-45.0); Calcium, Ionized 1.1 mmol/L (1.12-1.30); Hematocrit-ABG 50.7 % (42.0-52.0); Hemoglobin (Hb) 14.2 g/dL (14.0-18.0); O2 Tension (PaO2) 73.3 mmHg (80.0-100.0); Puncture Site LRA
--- NOTE | 2017-05-18 10:59 | PDOC.EVN ---
Event Note - Event Note Event Note: Spoke with patient's again today and have decided to proceed with intubation and tracheostomy. She stated that if we are proceeding with those measures for his acute decompensation, she would also like to make him and full code and understands that means proceeding with CPR in the event of cardiac arrest.
[2017-05-18] MEDS ORDERED: Midazolam HCl 2 mg/2 ml Vial IVP SCH (12:00)
[2017-05-18] MEDS ORDERED: Propofol 1,000 MG/100 ML VIAL IV ONE (12:03)
[2017-05-18] MEDS ORDERED: Midazolam HCl 2 mg/2 ml Vial ONE (12:03)
[2017-05-18] MEDS ORDERED: Vecuronium 10 MG VIAL ONE ×2 (12:37→13:32)
[2017-05-18] MEDS: Sodium Chloride 0.9% 1,000 ML IV SCH ×2 (12:50→13:43)
[2017-05-18] MEDS: Vecuronium 10 MG VIAL IV SCH ×2 (13:42→13:44)
[2017-05-18] MEDS: fentaNYL Citrate/PF 2,000 MCG in Sodium Chloride 0.9% 60 ML IV SCH (13:48)
[2017-05-18 14:15] LABS: Actual Bicarbonate (HCO3a) 41.5 mEq/L (22-26); Base Excess (BEa) 11.4 mEq/L (0 (+/-) 2.5); CO2 Tension 86.4 mmHg (35.0-45.0); Hematocrit-ABG 45.5 % (42.0-52.0); Hemoglobin (Hb) 13.1 g/dL (14.0-18.0)
[2017-05-18 14:18] LABS: Calcium, Ionized 1.1 mmol/L (1.12-1.30)
[2017-05-18 14:19] LABS: Puncture Site RB
[2017-05-18] MEDS: Dextrose 5 % And 0.9 % NaCl 1,000 ML IV SCH (15:37)
--- NOTE | 2017-05-18 16:10 | HP ---
HISTORY OF PRESENT ILLNESS: Jt Cedillo is a 66-year-old male patient with COPD, morbid obesity, 5 foot 8, 36 BMI, 238 pounds admitted with respiratory failure due to his COPD, metabolic syndrome, and morbid obesity. CO2 on admission was 105. I have been asked by Dr. Aguilera to see him regarding p lacement of a tracheostomy. I have discussed with the patient's . The procedure, risks of infec tion, bleeding, reoperation and she consents. The patient is admitted by the [facility] on 05/16/2017 and required intubation on 05/17/2017 at 0500 in a code situation. Patient has been s een by Dr. England. An echocardiogram on 05/16/2017 reveals 50%-55% cardiac ejection fraction, mild mitral and tricuspid regurgitation, left atrial mild dilatation. Patient apparently developed upper respiratory infection, sinusitis, developed dyspnea and orthopnea. He uses BiPAP at bedtime. Admis bryson chest CTA reveals some questionable small defects, therapeutic Lovenox initiated. Dr. England and Dr. Aguilera had seen him. It was felt he had demand ischemia. Dr. Aguilera saw him in consultation t tommy and documented obesity-hypoventilation syndrome, KISHAN, ongoing tobacco use, deconditioning, chron ic pain, fibromyalgia, reported history of asbestosis. PAST MEDICAL HISTORY: Sleep apnea, history of asbestosis, and obesity. PAST SURGICAL HISTORY: None. TOBACCO: Abuse. ALCOHOL: Occasionally. DRUG USE: None. ALLERGIES: PENICILLIN. PHYSICAL EXAMINATION: VITAL SIGNS: 5 foot 8, 238 pounds, 36 BMI, 98.5 degrees, 130/56, 72. HEENT: On the ventilator. Orogastric tube in place. LUNGS: Clear to auscultation. Rhonchi in base. CARDIAC: Regular rate and rhythm. ABDOMEN: Obese, soft, firm. EXTREMITIES: Unremarkable. LABORATORY DATA: White count 11, hemoglobin 14. Basic metabolic profile essentially unremarkable. BUN and creatinine 25 and 0.91. CK-MB 9.8. Troponin 0.062, elevated. ASSESSMENT AND PLAN: 1. Respiratory failure. Planned tracheostomy tomorrow. 2. Equivocal CTA, treatment per Dr. Aguilera. Hold Lovenox for now for tracheostomy tomorrow. 3. Chronic obstructive pulmonary disease. 4. Sleep apnea. 5. Fibromyalgia. 6. Ongoing tobacco abuse.
[2017-05-18] MEDS: Vecuronium 10 MG VIAL IV PRN ×4 (16:15→22:44)
--- NOTE | 2017-05-18 19:37 | PRG ---
DATE OF SERVICE: 05/18/2017 SUBJECTIVE: Jt Cedillo is evaluated this morning. He is less responsive than yesterday afternoon. His pH 7.26, pCO2 of 107, pO2 of 73. OBJECTIVE: RESPIRATORY: He felt distant breath sounds. He was not labored with BiPAP, but again was Maribel arousable. HEART: Regular rhythm. ABDOMEN: Soft. LABORATORY DATA: Hemoglobin today was 14.3, platelets 183. Sodium 139, potassium 4.6, chloride 91, bicarbonate 37, BUN 25, creatinine 0.91. IMPRESSION: Respiratory failure secondary to obesity hypoventilation syndrome, probably combined with deconditioning and combined with underlying obstructive lung disease. PLAN: Intubation and tracheostomy. I have explained to the that I feel very strongly that the tracheostomy is his only hope for getting down the road very far. She says there is no way he would be compliant with nocturnal CPAP and there is another family member in the room that confirms this, so consult has been placed for tracheostomy. I see no indication for PEG placement at this time. Dr. Cash was gracious enough to see him today and hopefully this will be done within the next few days. He was successfully intubated fiberoptically, post-intubation blood gas shows a pH 7.3, CO2 of 86, pO2 of 73. This is on tidal volume 450 with a rate of 10. He initially required paralytics. He also initially had the expected drop in his blood pressure, and received a saline volume infusion that stabilized his blood pressure. Critical care time 40 minutes, independent of the procedure. ANA LUISA
[2017-05-18] MEDS: Propofol 1,000 MG/100 ML VIAL IV PRN (19:50)
--- NOTE | 2017-05-18 23:02 | OP ---
PROCEDURE: Fiberoptic intubation and follow-up fiberoptic bronchoscopy to rule out endobronchial obs truction mainly in his lower lobes. The patient was not sedated initially he was obtunded. BiPAP wa s removed. Bite block was placed in his mouth. He cooperated with this. Scope was passed into his posterior pharyngeal space and salivary secretions were suctioned clear until his vocal cords were vi sualized. The scope was passed through his and cords and 7.5 endotracheal tube was advanced through his cords. Secured in place above the main gordon. He was then connected to Ambu bag ventilation. The scope was then reintroduced, right middle lobe, right lower lobe, right upper lobe, left lower lo be, left upper lobe were entered and no endobronchial lesions were seen. Scattered clear secretions were encountered. He tolerated the procedure well. There were no immediate complications.
[2017-05-19] MEDS: Vecuronium 10 MG VIAL IV PRN ×4 (01:08→06:42)
[2017-05-19] MEDS: Dextrose 5 % And 0.9 % NaCl 1,000 ML IV SCH (01:09)
[2017-05-19] MEDS: Propofol 1,000 MG/100 ML VIAL IV PRN ×3 (02:52→21:01)
[2017-05-19 04:43] LABS: #Eosinphils 0.2 thou/uL (0.0-0.7); #Lymphocytes 0.9 thou/uL (1.20-3.40); #Monocytes 0.8 thou/uL (0.11-0.59); %Basophils 0.3 % (0.0-1.0); %Eosinophils 1.7 % (0.0-10.0); %Lymphocytes 9.5 % (21.0-51.0); %Neutrophils 80.6 % (42.0-75.0); Hemoglobin 14.3 g/dL (14.0-18.0); Mean Corpuscular HGB CONC 30.3 g/dL (32.0-36.0); Mean Corpuscular Hemoglobin 30.4 pg (27.0-31.0); Mean Platelet Volume 8.2 fL (7.4-10.4); Platelet Count 151 thou/uL (130-400); RBC Distribution Width 12.4 % (11.5-14.5); Red Blood Cell (RBC) Count 4.71 mill/uL (4.70-6.10); White Blood Cell (WBC) Count 9.9 thou/uL (4.8-10.8)
[2017-05-19 05:02] LABS: BUN (Urea Nitrogen) 28 mg/dL (8.4-25.7); Calc. Creatinine Clearance 145 mL/min (70-130); Calcium 8.5 mg/dL (7.8-10.44); Estimated GFR-MDRD Greater than 90; Glucose 111 mg/dL (80-115)
[2017-05-19 05:11] LABS: Anion Gap 14 mmol/L (10-20); Carbon Dioxide 35 mmol/L (23-31); Chloride 96 mmol/L (98-107); Potassium 4.2 mmol/L (3.5-5.1); Sodium 141 mmol/L (136-145)
[2017-05-19] MEDS ORDERED: Dextrose 5 %-0.45 % NaCl 1,000 ML IV SCH (07:45)
--- NOTE | 2017-05-19 08:09 | RAD ---
PORTABLE CHEST 1 VIEW: Date: 05/19/17 Time: 0453 hours HISTORY: Respiratory failure. FINDINGS/IMPRESSION: Comparison made with exam of 05/17/17. There has been interval placement of an endotracheal tube with tip about 2.5 cm from the gordon. A na sogastric tube has also been placed which can be traced into the stomach. Tip excluded from the film . The heart is enlarged. There is pulmonary vascular congestion. No pneumothoraces are seen. There ar e bilateral pleural effusions. POS: [facility]
[2017-05-19 08:28] LABS: Actual Bicarbonate (HCO3a) 41.9 mEq/L (22-26); Base Excess (BEa) 12.3 mEq/L (0 (+/-) 2.5); Hematocrit-ABG 44.2 % (42.0-52.0); Hemoglobin (Hb) 12.7 g/dL (14.0-18.0); O2 Tension (PaO2) 65.8 mmHg (80.0-100.0); pH, Arterial 7.32 (7.35-7.45)
[2017-05-19 08:29] LABS: Calcium, Ionized 1.1 mmol/L (1.12-1.30); Puncture Site RBA
--- NOTE | 2017-05-19 09:04 | PDOC.FM ---
- Subjective Subjective: Patient intubated and minimally sedated. He follows commands and would like his . - Objective MAR Reviewed: Yes Vital Signs & Weight: Vital Signs (12 hours) Temp Pulse Resp BP Pulse Ox 05/19/17 07:09 93 151/70 H 05/19/17 07:08 98 10 L 95 05/19/17 06:00 98.2 F 05/19/17 05:24 10 L 05/19/17 04:00 98.4 F 05/19/17 03:42 10 L 05/19/17 02:39 97 16 91 L 05/19/17 02:00 10 L 05/19/17 00:00 98.6 F 05/18/17 23:21 10 L 05/18/17 22:21 95 16 92 L 05/18/17 21:58 10 L Weight Weight 109.1 kg Most Recent Monitor Data Heart Rate from ECG 99 NIBP 142/69 NIBP BP-Mean 90 Respiration from ECG 20 SpO2 93 I&O: 05/18/17 05/19/17 05/20/17 06:59 06:59 06:59 Intake Total 1335 3585.5 Output Total 2625 1495 Balance -1290 2090.5 Result Diagrams: 05/19/17 03:54 05/19/17 03:54 Additional Labs: Laboratory Tests 05/19/17 07:35 Bicarbonate Actual 41.9 H ABG pH 7.32 L ABG pCO2 83.0 H* ABG pO2 65.8 L <Sue Dumas - Last Filed: 05/19/17 10:44> - Objective Vital Signs & Weight: Vital Signs (12 hours) Temp Pulse Resp BP Pulse Ox 05/19/17 07:09 93 151/70 H 05/19/17 07:08 98 10 L 95 05/19/17 06:00 98.2 F 05/19/17 05:24 10 L 05/19/17 04:00 98.4 F 05/19/17 03:42 10 L 05/19/17 02:39 97 16 91 L 05/19/17 02:00 10 L 05/19/17 00:00 98.6 F 05/18/17 23:21 10 L Weight Weight 109.1 kg Most Recent Monitor Data Heart Rate from ECG 99 NIBP 142/69 NIBP BP-Mean 90 Respiration from ECG 20 SpO2 93 I&O: 05/18/17 05/19/17 05/20/17 06:59 06:59 06:59 Intake Total 1335 3585.5 Output Total 2625 1495 Balance -1290 2090.5 Result Diagrams: 05/19/17 03:54 05/19/17 03:54 <VivHe - Last Filed: 05/19/17 10:56> Phys Exam - Physical Examination Constitutional: NAD HEENT: moist MMs intubated Respiratory: no wheezing, no rales, no rhonchi, clear to auscultation bilateral still poor air movement with inspiration. Cardiovascular: RRR, no significant murmur Gastrointestinal: soft, non-tender, positive bowel sounds 1+ pitting BLE edema Neurological: moves all 4 limbs follows commands on light sedation <Sue Dumas - Last Filed: 05/19/17 10:44> Dx/Plan (1) Acute hypercapnic respiratory failure Code(s): J96.02 - ACUTE RESPIRATORY FAILURE WITH HYPERCAPNIA Status: Acute Plan: Likely 2/2 underlying pulmonary disease and KISHAN and obesity hypoventilation syndrome. Now intubated and ABG improving. pCO2 down to 82. Likely has severe underlying COPD- will need outpt PFTs plan is for trach placement later today as agreed upon with . Patient likely not to be compliant with cpap per family. (2) Obesity hypoventilation syndrome Code(s): E66.2 - MORBID (SEVERE) OBESITY WITH ALVEOLAR HYPOVENTILATION Status : Acute Plan: see above. Weight loss recommended. (3) HTN (hypertension) Code(s): I10 - ESSENTIAL (PRIMARY) HYPERTENSION Status: Acute Plan: cont on lisinopril and coreg. (4) Pulmonary embolism Code(s): I26.99 - OTHER PULMONARY EMBOLISM WITHOUT ACUTE COR PULMONALE Status : Acute Plan: on therapeutic lovenox. Will hold off on NOAC for now (5) Elevated troponin I measurement Code(s): R74.8 - ABNORMAL LEVELS OF OTHER SERUM ENZYMES Status: Acute Plan: likely demand ischemia with PE. downtrending trop lipid panel impressive not on statin (LDL < 100) (6) Hematuria Code(s): R31.9 - HEMATURIA, UNSPECIFIED Status: Acute Plan: needs to see urology outpt but if cont to worsen may do it inpt.trend H/H ASA stopped. Cont ppx lovenox. (7) Obesity (BMI 30-39.9) Code(s): E66.9 - OBESITY, UNSPECIFIED Status: Chronic Plan: A1C 5.5 (8) Tobacco abuse Code(s): Z72.0 - TOBACCO USE Status: Chronic Plan: nicotine patch offered and smoking cessation encouraged. (9) Chronic acquired lymphedema Code(s): I89.0 - LYMPHEDEMA, NOT ELSEWHERE CLASSIFIED Status: Acute Plan: Cont lasix but changed to once daily. improving. ECHO does not reveal CHF as suspected. <Sue Dumas - Last Filed: 05/19/17 10:44> Attending Addendum - Attending Addendum I personally evaluated the patient and discussed the management with Dr. Dumas. I agree with and repeated the History, Examination, Assessment and Plan documented above with any addition or exceptions noted below. Patient wakens easily, follows command. ROS limited but intubation. A h/h RF. Intubated. Lung protective strategy. Dr. Aguilera has requested tracheostomy, Dr. Cash following. NSTEMI, likely demand, with PE. Limited echo. Suspect underlying diastolic pathology and PAP not evaluated. IVC immobile and dilated on POCUS. Right lung with limited exam but appears to have effusion. Left not evaluated. Decreased fluids, continue diuresis. Being feeds post trach. Hematuria. ASA d/c'd continue lovenox for now. Hgb stable. Will need urology consult when more stable. Other comorbidity management as above. 30 minutes of critical care time. <He Nam - Last Filed: 05/19/17 10:56>
[2017-05-19] MEDS: fentaNYL Citrate/PF 2,000 MCG in Sodium Chloride 0.9% 60 ML IV SCH ×2 (10:34→23:57)
[2017-05-19] MEDS: Carvedilol 3.125 MG TAB PO SCH ×2 (10:37→17:53)
[2017-05-19] MEDS: Enoxaparin Sodium 120 MG/0.8 ML SYRINGE SC SCH ×2 (10:37→19:45)
[2017-05-19] MEDS: Furosemide 40 MG/4 ML VIAL SLOW IVP SCH ×2 (10:37→20:14)
[2017-05-19] MEDS: Nicotine 14 MG PATCH TD SCH (10:50)
--- NOTE | 2017-05-19 13:13 | PRG ---
DATE OF SERVICE: 05/19/2017 SUBJECTIVE: Jt Cedillo remains mechanically ventilated. OBJECTIVE: GENERAL: He is in no distress. His heart rate is 88, blood pressure 127/63, respiratory rate 15, ox imetry is 94. LUNGS: Distant. He has a 4-second exhale time. CARDIOVASCULAR: Regular rhythm. ABDOMEN: Soft. EXTREMITIES: Without asymmetry. LABORATORY DATA: White count 9.9, hemoglobin 14.3, platelets 151. Sodium 141, potassium 4.2, chloride 96, bicarbonate 35, BUN 28, creatinine 0.79. IMPRESSION: 1. Respiratory failure secondary to untreated sleep apnea combined with obstructive lung disease. 2. Obesity. PLAN: Tracheostomy today, then weaning as tolerated after his tracheostomy. Critical care time was 30 minutes.
[2017-05-19] MEDS ORDERED: Furosemide 40 MG/4 ML VIAL SLOW IVP SCH (14:00)
[2017-05-19] MEDS ORDERED: Bupivacaine PF 0.5% 30 ML VIAL ONE (14:12)
[2017-05-19] MEDS ORDERED: Lidocaine 2% w/Epinephrine 1:200K 20 ML VIAL ONE (14:12)
[2017-05-19] MEDS: Dextrose 5 %-0.45 % NaCl 1,000 ML IV SCH ×2 (14:21→21:01)
[2017-05-19] MEDS ORDERED: PHENYLEPHRINE-NS 100 MCG/ML 10 ML SYRINGE ONE (14:33)
[2017-05-19] MEDS ORDERED: Levofloxacin 500 mg/D5W 100 ml Premix Bag ONE (15:10)
--- NOTE | 2017-05-19 16:32 | RAD ---
CHEST ONE VIEW 05/19/17 HISTORY: Central line. COMPARISON: Chest radiograph same day. FINDINGS: Central venous catheter has been placed with tip at the cavoatrial junction in good position. Tracheo stomy tube is in place in good position. Enteric tube has been removed. The lungs are hypoinflated. H eart size is enlarged. Layering right effusion. IMPRESSION: Uncomplicated placement of tracheostomy tube and central venous catheter. POS: [facility]
--- NOTE | 2017-05-19 17:11 | OP ---
DATE OF PROCEDURE: 05/19/2017 PREOPERATIVE DIAGNOSES: 1. Chronic obstructive pulmonary disease 2. Tobacco abuse. 3. Respiratory failure, probable sleep apnea, poor intravenous access. POSTOPERATIVE DIAGNOSES: 1. Chronic obstructive pulmonary disease 2. Tobacco abuse. 3. Respiratory failure, probable sleep apnea, poor intravenous access. PROCEDURES PERFORMED: Right subclavian vein triple-lumen catheter. A #8 Shiley tracheostomy tube. SURGEON: Matthias Cash M.D. ANESTHESIA: General. PROCEDURE IN DETAIL: Patient was taken to the operating room where under general anesthesia, neck an d chest were prepared with ChloraPrep, draped in routine fashion. Seldinger technique used to place a right subclavian vein triple lumen catheter. J-wire threaded, trocar catheter removed. Skin incis ed and enlarged sharply and Seldinger technique used to place a triple lumen catheter and J-wire naomy bekah. Catheter secured with 2 interrupted sutures of 3-0 silk. Biopatch applied, sterile dressing ap plied. Incision was made above the manubrium and carried down through skin and platysma, dividing large ante rior jugular vein between clamps and ligated with 3-0 silk ties. Midline dissected free, dividing th e isthmus of the thyroid, identifying the trachea below the cricoid, dissecting it free and placing r ight and left anterior lateral sutures of 3-0 Prolene, air knots tied and secured to the anterior abd ominal wall, chest wall with Mastisol and Op-Site. Midline trachea excised anteriorly over two carti laginous rings removing the anterior window, I visualized the lumen of the trachea withdrawn and the endotracheal tube and under direct visualization, a #8 Shiley tracheostomy tube placed in the trachea cuff inflated and was connected to the ventilator. Good hemostasis noted and had been obtained with the cautery. Skin approximated on either side with continuous suture of 3-0 Prolene and tracheostom y appliance secured to skin with 3-0 Prolene. Sterile dressings applied.
[2017-05-20 04:35] LABS: #Eosinphils 0.1 thou/uL (0.0-0.7); #Lymphocytes 0.7 thou/uL (1.20-3.40); #Neutrophils 8.5 thou/uL (1.40-6.50); %Basophils 0.2 % (0.0-1.0); %Eosinophils 1.4 % (0.0-10.0); %Lymphocytes 6.7 % (21.0-51.0); %Monocytes 9.7 % (0.0-10.0); Hemoglobin 12.5 g/dL (14.0-18.0); Mean Corpuscular HGB CONC 30.1 g/dL (32.0-36.0); Mean Corpuscular Hemoglobin 30.3 pg (27.0-31.0); Mean Platelet Volume 7.9 fL (7.4-10.4); Platelet Count 160 thou/uL (130-400); RBC Distribution Width 12.4 % (11.5-14.5); Red Blood Cell (RBC) Count 4.14 mill/uL (4.70-6.10); White Blood Cell (WBC) Count 10.4 thou/uL (4.8-10.8)
[2017-05-20 05:11] LABS: BUN (Urea Nitrogen) 31 mg/dL (8.4-25.7); Calc. Creatinine Clearance 146 mL/min (70-130); Calcium 8.3 mg/dL (7.8-10.44); Estimated GFR-MDRD Greater than 90; Glucose 100 mg/dL (80-115)
[2017-05-20 06:02] LABS: Carbon Dioxide 36 mmol/L (23-31)
[2017-05-20 06:24] LABS: CO2 Tension 87.8 mmHg (35.0-45.0); pH, Arterial 7.28 (7.35-7.45)
[2017-05-20 06:25] LABS: Actual Bicarbonate (HCO3a) 40.3 mEq/L (22-26); Base Excess (BEa) 10.3 mEq/L (0 (+/-) 2.5); Hematocrit-ABG 42.2 % (42.0-52.0); Hemoglobin (Hb) 12.3 g/dL (14.0-18.0); O2 Tension (PaO2) 59.1 mmHg (80.0-100.0)
[2017-05-20 06:26] LABS: Calcium, Ionized 1.1 mmol/L (1.12-1.30); Puncture Site RBA
[2017-05-20 06:30] LABS: Chloride 97 mmol/L (98-107); Potassium 4.3 mmol/L (3.5-5.1); Sodium 142 mmol/L (136-145)
[2017-05-20 06:31] LABS: Anion Gap 13 mmol/L (10-20)
--- NOTE | 2017-05-20 07:17 | PDOC.FM ---
- Subjective Subjective: Pt does have sedation/paralytics ordered and propofol is running currently but he is awake, can answer my questions this morning. Does not appear in distress, denies pain. His trach site is bloody, currently on mechanical ventilation. New R subclavian line. - Objective MAR Reviewed: Yes Vital Signs & Weight: Vital Signs (12 hours) Temp Pulse Resp BP Pulse Ox 05/20/17 06:18 97 93/47 L 05/20/17 06:15 99 10 L 92 L 05/20/17 06:00 12 05/20/17 04:00 98.9 F 12 05/20/17 02:31 91 05/20/17 02:30 92 10 L 94 L 05/20/17 02:00 10 L 05/20/17 00:00 98.5 F 14 05/19/17 22:02 90 12 95 05/19/17 22:00 12 05/19/17 20:00 98.9 F 90 12 94 L Weight Admit Weight 116.12 kg Weight 110.042 kg Most Recent Monitor Data Heart Rate from ECG 98 NIBP 93/47 NIBP BP-Mean 60 Respiration from ECG 12 SpO2 95 I&O: 05/19/1718 05/21/17 06:59 06:59 06:59 Intake Total 3585.5 1394.5 Output Total 1495 1795 Balance 2090.5 -400.5 Result Diagrams: 05/20/17 04:00 05/20/17 04:00 Radiology Reviewed by me: Yes <Ita Arora - Last Filed: 05/20/17 09:54> - Objective Vital Signs & Weight: Vital Signs (12 hours) Temp Pulse Resp BP Pulse Ox 05/20/17 06:18 97 93/47 L 05/20/17 06:15 99 10 L 92 L 05/20/17 06:00 12 05/20/17 04:00 98.9 F 12 05/20/17 02:31 91 05/20/17 02:30 92 10 L 94 L 05/20/17 02:00 10 L 05/20/17 00:00 98.5 F 14 Weight Admit Weight 116.12 kg Weight 110.042 kg Most Recent Monitor Data Heart Rate from ECG 98 NIBP 93/47 NIBP BP-Mean 60 Respiration from ECG 12 SpO2 95 I&O: 05/19/17 05/20/17 05/21/17 06:59 06:59 06:59 Intake Total 3585.5 1394.5 Output Total 1495 1795 Balance 2090.5 -400.5 Result Diagrams: 05/20/17 04:00 05/20/17 04:00 <Andrew Corey Hunter - Last Filed: 05/20/17 10:19> Phys Exam - Physical Examination Constitutional: NAD HEENT: PERRLA, moist MMs short submental distance Respiratory: no wheezing, no rales, no rhonchi, clear to auscultation bilateral decreased breath sounds Cardiovascular: RRR Gastrointestinal: soft, non-tender distension of abdomen, non TTP Musculoskeletal: edema present 2+ pitting edema Psychiatric: normal affect Skin: cap refill <2 seconds <Ita Arora - Last Filed: 05/20/17 09:54> Dx/Plan (1) Acute hypercapnic respiratory failure Code(s): J96.02 - ACUTE RESPIRATORY FAILURE WITH HYPERCAPNIA Status: Acute Plan: Got trach yesterday, in place, site is bloody. Currently on mechanical ventilation. CO2 has decreased from admission but up today from yesterday to 88 , so could increase rate, currently at 10. Likely 2/2 to COPD and OHS. Possible contribution from CHF but echo was unimpressive with 50-55% EF, mild MR/TR. Will continue some diuresis. Could start tube feeds today if not planning on weaning off of vent soon. NG tube would need to be placed. (2) Obesity hypoventilation syndrome Code(s): E66.2 - MORBID (SEVERE) OBESITY WITH ALVEOLAR HYPOVENTILATION Status : Acute Plan: as above (3) Pulmonary embolism Code(s): I26.99 - OTHER PULMONARY EMBOLISM WITHOUT ACUTE COR PULMONALE Status : Acute QualifierTitle: Chronicity: acute Plan: Large PE, will continue lovenox, plan to switch to a novel anticoagulant after allowing some time for trach healing. 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 Nicotine patches ordered. (6) HTN (hypertension) Code(s): I10 - ESSENTIAL (PRIMARY) HYPERTENSION Status: Acute QualifierTitle: Hypertension type: essential hypertension Qualified Code( s): I10 - Essential (primary) hypertension Plan: BP has actually been low possibly related to sedation so will hold and restart as needed after off of propofol/fentanyl (7) Hematuria Code(s): R31.9 - HEMATURIA, UNSPECIFIED Status: Acute QualifierTitle: Hematuria type: gross Qualified Code(s): R31.0 - Gross hematuria Plan: Outpatient urology follow up for possible cystoscopy. <Ita Arora - Last Filed: 05/20/17 09:54> Attending Addendum - Attending Addendum I personally evaluated the patient and discussed the management with Dr. Arora. I agree with the History, Examination, Assessment and Plan documented above with any addition or exceptions noted below. Patient awake this morning and denies complaints. His sedation has been weaned down and no issues noted. There is hope to wean him from vent today after having trach placed due to acute on chronic hypercapnic respiratory failure likely 2/2 obesity hypoventilation, KISHAN, and COPD. His ABG shows there is room for improvement, though overall his status is improved. Will discuss today the need for tube feeding initiation. Will need speech therapy on board. Continue diuresis as mildly volume overloaded, will give extra dose of Lasix today. <Andrew Corey - Last Filed: 05/20/17 10:19>
--- NOTE | 2017-05-20 09:36 | PRG ---
DATE OF SERVICE: 05/20/2017 SERVICE: Pulmonary Medicine. INTERVAL HISTORY: The patient is doing fine from a respiratory standpoint. 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 He denies any current fevers, chills, nausea or vomiting. He says that he is breathing co mfortably. Otherwise, there has been no interval change to his condition. He requires a little bit extra oxygen. PHYSICAL EXAMINATION: VITAL SIGNS: Afebrile, pulse 99, blood pressure 93/47, respirations 12, saturation 95% on 35% FiO2 a nd a PEEP of 5. GENERAL: The patient is awake, alert, in no apparent distress. LUNGS: Decent air entry. There is a prolonged expiratory phase. Wheezing crackles are both present . No rhonchi. HEART: Normal rate and regular. ABDOMEN: Soft, nontender, nondistended. Bowel sounds are positive. MUSCULOSKELETAL: No cyanosis or clubbing. There is 1-2+ pitting in the bilateral lower extremities. NEUROLOGIC: Grossly nonfocal. LABORATORY DATA: WBC 10.4, hemoglobin 12.5, platelets 160,000. A pH 7.28, pCO2 87, and pO2 59. Bic arbonate 36. Basic metabolic profile is otherwise unremarkable. Urinalysis is negative. Blood cult ure x2 is unremarkable. IMAGING: Chest x-ray demonstrates tracheostomy is in good position. Low lung volumes are present bi laterally. Interstitial fullness is present, more pronounced on the left. There is left-sided perih ilar infiltrate. Right-sided subclavian central venous catheter terminates in good position. ASSESSMENT: 1. Acute on chronic hypoxic and hypercapnic respiratory failure. 2. Chronic obstructive pulmonary disease with acute exacerbation. 3. Obstructive sleep apnea, severe. 4. Morbid obesity. 5. Acute pulmonary embolism. PLAN: We will continue antibiotics, nebulized medications, and steroids. We will initiate tube feed s today. He is a touch wet, so I will interrupt IV fluids. We will give him a couple of doses of La six and watch his sodium. If it creeps up, free water will be increased. Pulmonary or Critical Care will continue to follow and the patient will certainly remain in this location. CRITICAL CARE TIME: 30 minutes.
[2017-05-20] MEDS: Furosemide 40 MG/4 ML VIAL SLOW IVP SCH (09:46)
[2017-05-20] MEDS: Enoxaparin Sodium 120 MG/0.8 ML SYRINGE SC SCH ×2 (09:46→20:26)
[2017-05-20] MEDS: Carvedilol 3.125 MG TAB PO SCH ×2 (09:47→17:57)
[2017-05-20] MEDS: Nicotine 14 MG PATCH TD SCH (09:49)
--- NOTE | 2017-05-20 10:58 | RAD ---
SEMIUPRIGHT PORTABLE CHEST 1 VIEW: HISTORY: A 66-year-old female with respiratory insufficiency. COMPARISON: 05/19/17. FINDINGS: Patchy linear and interstitial and reticulonodular opacities throughout both lungs with some pleural changes bilaterally. Poor inspiratory effort. No new confluent process. IMPRESSION: Stable abnormal linear and interstitial opacities and pleural opacity changes throughout both lungs. No significant new process. Continued short-term followup for clearing or stability. POS: ANGEL
--- NOTE | 2017-05-20 12:23 | EKG ---
Test Reason : Blood Pressure : / mmHG Vent. Rate : 110 BPM Atrial Rate : 110 BPM P-R Int : 134 ms QRS Dur : 092 ms QT Int : 334 ms P-R-T Axes : 062 066 043 degrees QTc Int : 452 ms Sinus tachycardia Incomplete right bundle branch block Borderline ECG No ST changes Confirmed by KAI VELASCO M.D. ([id number]), editor book SAVANNAH ROSA ([id number]) on 05/20/2017 12:23:34 PM Referred By: Confirmed By:KAI VELASCO M.D.
--- NOTE | 2017-05-20 12:25 | EKG ---
Test Reason : Blood Pressure : / mmHG Vent. Rate : 102 BPM Atrial Rate : 102 BPM P-R Int : 126 ms QRS Dur : 094 ms QT Int : 346 ms P-R-T Axes : 060 061 034 degrees QTc Int : 450 ms Sinus tachycardia Incomplete right bundle branch block Borderline ECG No ST elevation/MN Confirmed by KRISTA Greene, KAI ([id number]), video news editor SAVANNAH ROSA ([id number]) on 05/20/2017 12:25:29 PM Referred By: Confirmed By:KAI VELASCO M.D.
--- NOTE | 2017-05-20 13:30 | RAD ---
ABDOMEN 1 VIEW: HISTORY: Dobbhoff feeding tube placement. FINDINGS: Visualized bowel gas pattern is nonspecific. Metallic tip of the Dobbhoff feeding catheter projects over the left upper quadrant, overlying the expected location of the gastric body, just beyond the GE junction. Catheter may be desired more distally, so that advancing it approximately 7 cm would result in better position. POS: AMAYA
[2017-05-20] MEDS: Hydrocodone-Acetamin 15 ML UDCUP PO SCH (20:28)
[2017-05-20] MEDS: Senokot S 8.6-50 MG TAB PO SCH (20:29)
[2017-05-20] MEDS ORDERED: Hydrocodone-Acetamin 15 ML UDCUP PO SCH (21:00)
[2017-05-21 04:59] LABS: BUN (Urea Nitrogen) 26 mg/dL (8.4-25.7); Calc. Creatinine Clearance 166 mL/min (70-130); Calcium 9.2 mg/dL (7.8-10.44); Estimated GFR-MDRD Greater than 90; Glucose 107 mg/dL (80-115); Magnesium 2.1 mg/dL (1.6-2.6)
[2017-05-21 05:10] LABS: Phosphorus 1.9 mg/dL (2.3-4.7)
[2017-05-21 05:20] LABS: Chloride 96 mmol/L (98-107); Potassium 4.1 mmol/L (3.5-5.1); Sodium 138 mmol/L (136-145)
[2017-05-21 05:24] LABS: White Blood Cell (WBC) Count 11.1 thou/uL (4.8-10.8)
[2017-05-21 05:25] LABS: Hemoglobin 12.4 g/dL (14.0-18.0); Mean Corpuscular HGB CONC 30.4 g/dL (32.0-36.0); Mean Corpuscular Volume 98.5 fL (80.0-94.0); Mean Platelet Volume 8.2 fL (7.4-10.4); Platelet Count 162 thou/uL (130-400); RBC Distribution Width 12.2 % (11.5-14.5); Red Blood Cell (RBC) Count 4.12 mill/uL (4.70-6.10)
[2017-05-21 05:27] LABS: Carbon Dioxide 37 mmol/L (23-31)
[2017-05-21 05:31] LABS: Anion Gap 9 mmol/L (10-20)
[2017-05-21 06:09] LABS: Band 6 % (5-11); Lymphocytes 5 % (21-51); Monocytes 4 % (0-10); Neutrophil 85 % (42-75)
[2017-05-21 06:12] LABS: MDiff Complete? YES
--- NOTE | 2017-05-21 06:40 | PDOC.FM ---
- Subjective Subjective: Pt is doing well this morning, smiling. He was started on a spontaneous breathing trial about 5 min ago and is doing great, pulling 550-600+ TV, breathing about 14-16x a min, 35% FiO2 and sats are 96%. Hopefully he will be able to be weaned off the vent today. He is getting some breathing treatments, steroids, abx started yesterday, lungs are still very tight. Fluids KVO and receving lasix, LE edema is unchanged. Receiving NG tube feedings. - Objective MAR Reviewed: Yes Vital Signs & Weight: Vital Signs (12 hours) Temp Pulse Resp Pulse Ox 05/21/17 06:00 19 05/21/17 04:00 98.9 F 18 05/21/17 02:24 97 20 96 05/21/17 02:00 21 H 05/21/17 00:00 99.2 F 20 05/20/17 22:36 108 H 22 H 95 05/20/17 22:00 19 05/20/17 20:00 22 H 05/20/17 19:56 98.9 F 110 H 26 H 97 05/20/17 19:54 98 05/20/17 19:00 98.9 F Weight Admit Weight 116.12 kg Weight 110.132 kg Most Recent Monitor Data Heart Rate from ECG 93 NIBP 125/60 NIBP BP-Mean 76 Respiration from ECG 19 SpO2 98 I&O: 05/19/17 05/20/17 05/21/17 06:59 06:59 06:59 Intake Total 3585.5 1394.5 1254.7 Output Total 1495 1895 2595 Balance 2090.5 -500.5 -1340.3 Result Diagrams: 05/21/17 04:00 05/21/17 04:00 Radiology Reviewed by me: Yes (NG tube advanced) <Ita Arora - Last Filed: 05/21/17 07:41> - Objective Vital Signs & Weight: Vital Signs (12 hours) Temp Pulse Resp BP Pulse Ox 05/21/17 07:26 94 130/76 05/21/17 07:23 89 20 97 05/21/17 06:00 19 05/21/17 04:00 98.9 F 18 05/21/17 02:24 97 20 96 05/21/17 02:00 21 H 05/21/17 00:00 99.2 F 20 05/20/17 22:36 108 H 22 H 95 Weight Admit Weight 116.12 kg Weight 110.132 kg Most Recent Monitor Data Heart Rate from ECG 93 NIBP 125/60 NIBP BP-Mean 76 Respiration from ECG 19 SpO2 98 I&O: 05/20/17 05/21/17 05/22/17 06:59 06:59 06:59 Intake Total 1394.5 1254.7 Output Total 1895 2595 Balance -500.5 -1340.3 Result Diagrams: 05/21/17 04:00 05/21/17 04:00 <Andrew Corey - Last Filed: 05/21/17 10:14> Phys Exam - Physical Examination Constitutional: NAD HEENT: PERRLA, moist MMs Respiratory: wheezing present decreased breath sounds b/l Cardiovascular: RRR, no significant murmur Gastrointestinal: soft, non-tender, no distention Musculoskeletal: edema present 2+ LE pitting edema Neurological: moves all 4 limbs Psychiatric: normal affect <Ita Arora - Last Filed: 05/21/17 07:41> Dx/Plan (1) Acute hypercapnic respiratory failure Code(s): J96.02 - ACUTE RESPIRATORY FAILURE WITH HYPERCAPNIA Status: Acute Plan: Trach placed 2/2, site is bloody. Currently on a spontaneous breathing trial. 35 % FiO2, 10/5 pressure support/PEEP. Hopefully wean today. This is all likely 2/ 2 to COPD and OHS. Possible contribution from CHF but echo was unimpressive with 50-55% EF, mild MR/TR. Will continue some diuresis. PT ordered yesterday, he apparently hasnt been up in 2 weeks, will likely needs placement 2/2 to deconditioning, will wait for PT recs. Continue tube feeds, will consult speech once off of the vent. (2) COPD (chronic obstructive pulmonary disease) Status: Acute QualifierTitle: COPD type: emphysema Plan: We will continue antibiotics, steroids, duonebs. Abx started yesterday. Lungs are still very tight with some mild wheezing. (3) Obesity hypoventilation syndrome Code(s): E66.2 - MORBID (SEVERE) OBESITY WITH ALVEOLAR HYPOVENTILATION Status : Acute Plan: as above (4) Pulmonary embolism Code(s): I26.99 - OTHER PULMONARY EMBOLISM WITHOUT ACUTE COR PULMONALE Status : Acute QualifierTitle: Chronicity: acute Plan: Large PE, will continue lovenox, plan to switch to a novel anticoagulant after allowing some time for trach healing. 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 Nicotine patches ordered. (7) HTN (hypertension) Code(s): I10 - ESSENTIAL (PRIMARY) HYPERTENSION Status: Acute QualifierTitle: Hypertension type: essential hypertension Qualified Code( s): I10 - Essential (primary) hypertension Plan: Sedation is off and BP is the 130/76 this AM, will continue carvedilol (8) Hematuria Code(s): R31.9 - HEMATURIA, UNSPECIFIED Status: Acute QualifierTitle: Hematuria type: gross Qualified Code(s): R31.0 - Gross hematuria Plan: Outpatient urology follow up for possible cystoscopy. <Ita Arora - Last Filed: 05/21/17 07:41> Attending Addendum - Attending Addendum I personally evaluated the patient and discussed the management with Dr. Arora. I agree with the History, Examination, Assessment and Plan documented above with any addition or exceptions noted below. Patient improved this morning. Currently undergoing SBT and doing well with it. Denies complaints. Tube feeds initiated and tolerating well. His BP is stable, will continue with his antihypertensive therapy. Continue diuresis for volume overload. Replete Phosphorus. PT to be consulted for therapy. Levaquin and steroids added by Pulm for COPD. Further vent recs per CC. <Andrew Corey - Last Filed: 05/21/17 10:14>
--- NOTE | 2017-05-21 09:15 | PRG ---
DATE OF SERVICE: 05/21/2017 SERVICE: Pulmonary Medicine. INTERVAL HISTORY: The patient is doing really well overnight. This morning, he was placed on a spontaneous breathing trial. He is demonstrating excellent strength. We are going to drop into 5/5 and see how he does. Otherwise, there are no complaints and nursing reports no events. PHYSICAL EXAMINATION: VITAL SIGNS: Afebrile, pulse 94, blood pressure 130/76, respirations 19, saturation 98% on 27% FIO2 and a PEEP of 5. GENERAL: Patient is awake, alert, no apparent distress. LUNGS: Decent air entry. There is slightly prolonged expiratory phase, but this is much improved. HEART: Normal rate, regular. ABDOMEN: Soft, nontender, and nondistended. Bowel sounds are positive. MUSCULOSKELETAL: No cyanosis or clubbing. There is 2+ pitting in the bilateral lower extremities, but this is also improved. NEUROLOGIC: Grossly nonfocal. LABORATORY DATA: WBC 11.1, hemoglobin 12.4, platelets 162,000. D-dimer 0.9. Basic metabolic profile was essentially unremarkable. Phosphorus is 1.9. Creatinine 0.7 and down trending. Blood cultures x2 are unremarkable. IMAGIN. Chest x-ray demonstrates tracheostomy in good position. There is a possible infiltrate in the right middle lobe abutting the heart. Possible atelectasis in the left lower lobe was present. Otherwise, no acute cardiopulmonary abnormalities identified. 2. Abdominal x-ray demonstrates Dobbhoff tube in the stomach. It is just beyond the GE junction. ASSESSMENT: 1. Acute on chronic hypoxic and hypercapnic respiratory failure. 2. Chronic obstructive pulmonary disease with acute exacerbation. 3. Obstructive sleep apnea, severe. 4. Morbid obesity. 5. Acute pulmonary embolism. PLAN: We will continue supportive care. I will put him on a CPAP trial of 5/ 5. If he maintains well on this for roughly 2 hours, T-collar trial will commence. Pulmonary or Critical Care will continue to follow while the patient remains in this location. From a purely respiratory perspective, he is stable for transition out of the hospital to an LTAC facility. Critical care time: 30 minutes MTDD
[2017-05-21] MEDS: Hydrocodone-Acetamin 15 ML UDCUP PO SCH ×3 (09:48→21:04)
[2017-05-21] MEDS: Senokot S 8.6-50 MG TAB PO SCH ×2 (09:48→21:03)
[2017-05-21] MEDS: Carvedilol 3.125 MG TAB PO SCH ×2 (09:48→19:08)
[2017-05-21] MEDS: Furosemide 40 MG/4 ML VIAL SLOW IVP SCH (09:51)
[2017-05-21] MEDS: Enoxaparin Sodium 120 MG/0.8 ML SYRINGE SC SCH ×2 (09:51→21:04)
[2017-05-21] MEDS: Nicotine 14 MG PATCH TD SCH (09:53)
--- NOTE | 2017-05-21 10:10 | RAD ---
CHEST 1 VIEW: HISTORY: A 66-year-old male with a history of intubation and respiratory insufficiency. FINDINGS: Tracheostomy tube. Dobbhoff catheter in place. Right subclavian catheter in place. Poor inspirator y effort with borderline cardiomegaly. Pleural and parenchymal opacity changes noted bilaterally. I n addition, there is a nodular density overlying the right upper chest. This nodular density probabl y represents artifact because it was not seen on several most recent studies. IMPRESSION: Persistent pleural and parenchymal opacity changes bilaterally. Nodular density is seen in the right upper lobe, probably artifactual since it was not demonstrated on the most recent study of 05/20/17. Continued short-term followup. POS: AMAYA
[2017-05-21] MEDS ORDERED: Furosemide 40 MG/4 ML VIAL SLOW IVP SCH (14:00)
[2017-05-21] MEDS ORDERED: hydrOXYzine 25 MG TAB PO SCH (23:30)
[2017-05-22 05:18] LABS: Anion Gap 15 mmol/L (10-20); Carbon Dioxide 36 mmol/L (23-31); Chloride 94 mmol/L (98-107); Potassium 4.2 mmol/L (3.5-5.1); Sodium 141 mmol/L (136-145)
[2017-05-22 05:29] LABS: BUN (Urea Nitrogen) 34 mg/dL (8.4-25.7); Calc. Creatinine Clearance 153 mL/min (70-130); Calcium 10.1 mg/dL (7.8-10.44); Estimated GFR-MDRD Greater than 90; Glucose 136 mg/dL (80-115); Magnesium 2.3 mg/dL (1.6-2.6); Phosphorus 3.5 mg/dL (2.3-4.7)
--- NOTE | 2017-05-22 07:14 | PDOC.FM ---
- Subjective Subjective: Patient resting on vent SIMV this AM. P supp=5 and PEEP=5. Se=[id number]. He writes a note stating his fibromyalgia is causing pain all over and is requesting norco. Otherwise he signals with his hands that he is okay. - Objective MAR Reviewed: Yes Vital Signs & Weight: Vital Signs (12 hours) Temp Pulse Resp Pulse Ox 05/22/17 04:00 98.7 F 05/22/17 02:42 83 14 95 05/22/17 00:00 98.7 F 05/21/17 21:48 103 H 20 100 05/21/17 21:00 98.3 F 05/21/17 20:00 98.3 F 104 H 24 H 99 Weight Admit Weight 116.12 kg Weight 105.5 kg Most Recent Monitor Data Heart Rate from ECG 95 NIBP 102/53 NIBP BP-Mean 68 Respiration from ECG 20 SpO2 94 I&O: 05/21/17 05/22/17 05/23/17 06:59 06:59 06:59 Intake Total 1254.7 1495 Output Total 2595 4040 Balance -1340.3 -2545 Result Diagrams: 05/21/17 04:00 05/22/17 04:25 <Sue Dumas - Last Filed: 05/22/17 07:13> - Objective Vital Signs & Weight: Vital Signs (12 hours) Temp Pulse Pulse Pulse Resp BP BP 05/22/17 11:21 90 22 H 05/22/17 10:55 101 H 95 123/64 05/22/17 07:58 05/22/17 07:15 88 114/67 05/22/17 07:14 88 20 05/22/17 07:11 98.7 F 92 21 H 05/22/17 07:00 98.4 F 05/22/17 04:00 98.7 F 05/22/17 02:42 83 14 BP Pulse Ox 05/22/17 11:21 93 L 05/22/17 10:55 131/69 05/22/17 07:58 99 05/22/17 07:15 05/22/17 07:14 98 05/22/17 07:11 99 05/22/17 07:00 05/22/17 04:00 05/22/17 02:42 95 Weight Admit Weight 116.12 kg Weight 105.5 kg Most Recent Monitor Data Heart Rate from ECG 93 NIBP 114/67 NIBP BP-Mean 81 Respiration from ECG 15 SpO2 96 I&O: 05/21/17 05/22/17 05/23/17 06:59 06:59 06:59 Intake Total 1254.7 1495 Output Total 2595 4040 0 Balance -1340.3 -2545 0 Result Diagrams: 05/21/17 04:00 05/22/17 04:25 <He Nam - Last Filed: 05/22/17 12:17> Phys Exam - Physical Examination Constitutional: NAD HEENT: moist MMs Respiratory: no rhonchi some anterior wheezing, poor air movement throughout all lung crawley. no crackles reg rhythm, tachy Gastrointestinal: soft, non-tender, positive bowel sounds 1+ BLE pitting edema Neurological: moves all 4 limbs follows commands and is writing his thoughts Skin: normal turgor, cap refill <2 seconds <Sue Dumas - Last Filed: 05/22/17 07:13> Dx/Plan (1) Acute hypercapnic respiratory failure Code(s): J96.02 - ACUTE RESPIRATORY FAILURE WITH HYPERCAPNIA Status: Acute Plan: Likely 2/2 underlying pulmonary disease and KISHAN and obesity hypoventilation syndrome. Now has trach day #3. tolerated trach collar yesterday. Sp breathing trial again today. will need outpt PFTs (2) Obesity hypoventilation syndrome Code(s): E66.2 - MORBID (SEVERE) OBESITY WITH ALVEOLAR HYPOVENTILATION Status : Acute Plan: see above. Weight loss recommended. (3) HTN (hypertension) Code(s): I10 - ESSENTIAL (PRIMARY) HYPERTENSION Status: Acute QualifierTitle: Hypertension type: essential hypertension Qualified Code( s): I10 - Essential (primary) hypertension Plan: cont on coreg. (4) Pulmonary embolism Code(s): I26.99 - OTHER PULMONARY EMBOLISM WITHOUT ACUTE COR PULMONALE Status : Acute QualifierTitle: Chronicity: acute Plan: on therapeutic lovenox. Will hold off on NOAC for now (5) Elevated troponin I measurement Code(s): R74.8 - ABNORMAL LEVELS OF OTHER SERUM ENZYMES Status: Acute Plan: likely demand ischemia with PE. downtrending trop lipid panel impressive not on statin (LDL < 100) (6) Hematuria Code(s): R31.9 - HEMATURIA, UNSPECIFIED Status: Acute QualifierTitle: Hematuria type: gross Qualified Code(s): R31.0 - Gross hematuria Plan: needs to see urology outpt for cystoscopy. H/H stable. ASA stopped. Cont ppx lovenox. (7) Obesity (BMI 30-39.9) Code(s): E66.9 - OBESITY, UNSPECIFIED Status: Chronic Plan: A1C 5.5 (8) Tobacco abuse Code(s): Z72.0 - TOBACCO USE Status: Chronic Plan: nicotine patch offered and smoking cessation encouraged. (9) Chronic acquired lymphedema Code(s): I89.0 - LYMPHEDEMA, NOT ELSEWHERE CLASSIFIED Status: Chronic Plan: Cont lasix but changed to once daily. improving. ECHO does not reveal CHF as suspected. (10) COPD exacerbation Code(s): J44.1 - CHRONIC OBSTRUCTIVE PULMONARY DISEASE W (ACUTE) EXACERBATION Status: Acute Plan: patient started on levaquin day # 3 and solumedrol <Sue Dumas - Last Filed: 05/22/17 07:13> Attending Addendum - Attending Addendum I personally evaluated the patient and discussed the management with Dr. Dumas. I agree with and repeated the History, Examination, Assessment and Plan documented above with any addition or exceptions noted below. Patient looks fantastic today compared with 3 days ago. S/p trach. He denies cp/sob/n/v/f/c. RRR s M Poor air movement, but with insp/exp wheezes, no crackles, improved from previous BS+, NTTP Trach site looks good SC CVC well appearing Will discuss with urology concerning hematuria. Continue tx for COPD exac. He already has placement and can likely go pending the above. <He Nam - Last Filed: 05/22/17 12:17>
[2017-05-22] MEDS: Hydrocodone-Acetamin 15 ML UDCUP PO SCH ×3 (07:59→21:07)
[2017-05-22] MEDS: Senokot S 8.6-50 MG TAB PO SCH ×2 (10:59→21:07)
[2017-05-22] MEDS: Polyethylene Glycol 3350 17 GM Packet PER TUBE SCH (10:59)
[2017-05-22] MEDS: Enoxaparin Sodium 120 MG/0.8 ML SYRINGE SC SCH ×2 (10:59→21:10)
[2017-05-22] MEDS: Furosemide 40 MG/4 ML VIAL SLOW IVP SCH (10:59)
[2017-05-22] MEDS: Carvedilol 3.125 MG TAB PO SCH ×2 (10:59→17:01)
[2017-05-22] MEDS: Pantoprazole 40 MG VIAL IVP SCH (10:59)
[2017-05-22] MEDS: Nicotine 14 MG PATCH TD SCH (15:14)
--- NOTE | 2017-05-22 19:50 | PRG ---
DATE OF SERVICE: 05/22/2017 OBJECTIVE: VITAL SIGNS: Afebrile, heart rate is 93, respiratory rate 22, oximetry is 99, trach collar in place. GENERAL: He is in no distress. LUNGS: Clear. CARDIOVASCULAR: Regular rhythm. ABDOMEN: Soft and nontender. EXTREMITIES: Without asymmetry. IMPRESSION: 1. Obesity hypoventilation syndrome, untreated. 2. Chronic obstructive pulmonary disease. 3. Status post tracheostomy. 4. Status post mechanical ventilation, respiratory failure. PLAN: Continue supportive care, physical therapy, respiratory care.
[2017-05-22] MEDS: Tamsulosin HCl 0.4 MG CAP PO SCH (21:07)
[2017-05-22] MEDS ORDERED: diphenhydrAMINE 12.5 MG/5 ML UDCUP PER TUBE SCH (21:30)
[2017-05-23] MEDS ORDERED: diphenhydrAMINE 12.5 MG/5 ML UDCUP PER TUBE PRN (01:30)
[2017-05-23 05:10] LABS: BUN (Urea Nitrogen) 39 mg/dL (8.4-25.7); Calc. Creatinine Clearance 148 mL/min (70-130); Calcium 10.1 mg/dL (7.8-10.44); Estimated GFR-MDRD Greater than 90; Glucose 107 mg/dL (80-115); Magnesium 2.2 mg/dL (1.6-2.6); Phosphorus 3.8 mg/dL (2.3-4.7)
[2017-05-23 05:34] LABS: Chloride 93 mmol/L (98-107); Potassium 4.1 mmol/L (3.5-5.1); Sodium 142 mmol/L (136-145)
[2017-05-23 06:05] LABS: Carbon Dioxide 36 mmol/L (23-31)
[2017-05-23 06:06] LABS: Anion Gap 17 mmol/L (10-20)
--- NOTE | 2017-05-23 06:41 | CON ---
DATE OF CONSULTATION: 05/22/2017. REASON FOR CONSULTATION: Consultation was requested for hematuria. HISTORY OF PRESENT ILLNESS: The patient is a 66-year-old male admitted on 05/16 with bilateral lower extremity edema and noted to have PEs, but no DVTs; then had acute respiratory failure and required a trach on 05/19/2017, and is currently requiring oxygen only and supporting his own airway with the trach in place. 6 to 10 years ago, he had gross hematuria and had cystoscopy per his report and description. He had not seen gross hematuria recently until this hospital stay , at which time he had microscopic hematuria that turned into gross hematuria with a Byrnes, but has not had clots or trouble draining. PAST MEDICAL HISTORY: Significant for fibromyalgia, COPD, obesity, obstructive sleep apnea. PAST SURGICAL HISTORY: None. ALLERGIES: PENICILLIN, but he is not really sure. MEDICATIONS: None prior to this admission. SOCIAL HISTORY: He has over [id number] history. He was smoking 3 or 4 a day , but quit 2 weeks prior to admission. He drinks a 6-pack a year, but otherwise no significant alcohol. No drugs. REVIEW OF SYSTEMS: Seasonal allergies with rhinitis. He had cough upon admission with shortness of breath, which has improved. He has no chest pain, no diarrhea, no constipation. He reports having normal PSAs checked in the past. He has never had a biopsy. He had a colonoscopy less than 5 years ago that was within normal limit. He has never had kidney stones. He does report some difficulty with retracting the foreskin, he is unable to do this and keep it clean; however, at this point with his abdomen, it is hard for him to actually see. PHYSICAL EXAMINATION: GENERAL: He is sitting comfortably in a chair and able to stand with some help. VITAL SIGNS: He has been afebrile. Heart rate in the 90s-100s, satting 100% on his trach mask oxygen. Blood pressure 121/74. Byrnes has been draining adequately and currently has pink-tinged urine with yellow in the tube. HEART: Regular rate and rhythm. LUNGS: Somewhat rhonchorous with expiratory wheeze noted. ABDOMEN: Soft, non-distended but rotund, with normoactive bowel sounds. GENITOURINARY: Testes were descended bilaterally without masses. Phallus was uncircumcised with some phimosis that was mostly able to retract but his penis was covered by his pannus making it difficult to retract for this reason as opposed to the skin itself. Digital rectal exam was difficult and only apex was palpated, but it was without any concerns or cancer including no nodules and no induration. LABORATORY DATA: Laboratory values revealed a normal CBC. BUN and creatinine of 34 and 0.76. A urinalysis revealed 11 to 20 rbc's, but nothing else of concern and that was repeated the next day on the and and were the same. There is no upper tract imaging. ASSESSMENT AND PLAN: We have a 66-year-old male with gross hematuria after being anticoagulated, which is likely from his prostate, he has had this before. Given his significant smoking history, he does need workup to rule out a bladder mass and this can be done with cystoscopy, but I would like to do this in the office. Even if he has a bladder mass at this time, he would not be safe to come off blood thinners to address it immediately. I will also get upper tract imaging while he is in the hospital to include a CT without and with contrast. He also has enlarged prostate as the bleeding is likely coming from this. So, we discussed tamsulosin and finasteride, and will get him started him on both of these. ANA LUISA
[2017-05-23 07:43] LABS: INR-International Normal Ratio 1.1; PTT 33.8 SEC (22.9-36.1)
[2017-05-23 08:06] LABS: ALT (SGPT) 20 U/L (8-55); AST (SGOT) 23 U/L (5-34); Albumin 3.5 g/dL (3.4-4.8); Alkaline Phosphatase 62 U/L (40-150); Bilirubin, Direct 0.3 mg/dL (0.1-0.3); Bilirubin, Total 0.5 mg/dL (0.2-1.2); Protein, Total 6.6 g/dL (5.8-8.1)
[2017-05-23] MEDS ORDERED: Furosemide 40 MG TAB PO SCH (08:15)
[2017-05-23 08:37] LABS: Folate (Folic Acid) 12.6 ng/mL (7.0-31.4)
--- NOTE | 2017-05-23 08:49 | PDOC.FM ---
- Subjective Subjective: Patient only c/o pain this morning. Left knee pain is worse described as "feeling like a cut." He states he wakes with pain every morning at home but not this bad. He reports taking a lot of norco in the past for pain. Patient was seen by urology last night and plan for abd/pelvis CT and outpatient cystoscopy. Ok to start NOAC per surgery and trach standpoint. He had some bleeding from CL last night. Will plan to remove it later today. - Objective MAR Reviewed: Yes Vital Signs & Weight: Vital Signs (12 hours) Temp Pulse Resp Pulse Ox 05/23/17 07:45 90 L 05/23/17 07:43 100 20 90 L 05/23/17 04:00 98.7 F 05/23/17 02:30 84 20 94 L 05/23/17 00:00 98.0 F 05/22/17 22:22 100 19 100 Weight Admit Weight 116.12 kg Weight 105.5 kg Most Recent Monitor Data Heart Rate from ECG 94 NIBP 138/72 NIBP BP-Mean 87 Respiration from ECG 18 SpO2 94 I&O: 05/22/17 05/23/17 05/24/17 06:59 06:59 06:59 Intake Total 1495 1306 Output Total 4040 2545 Balance -7905 -7359 Result Diagrams: 05/21/17 04:00 05/23/17 04:00 <Sue Dumas - Last Filed: 05/23/17 08:44> - Objective Vital Signs & Weight: Vital Signs (12 hours) Temp Pulse Resp Pulse Ox 05/23/17 11:44 87 18 92 L 05/23/17 07:45 90 L 05/23/17 07:43 100 20 90 L 05/23/17 07:00 98.3 F 05/23/17 04:00 98.7 F 05/23/17 02:30 84 20 94 L 05/23/17 00:00 98.0 F Weight Admit Weight 116.12 kg Weight 105.5 kg Most Recent Monitor Data Heart Rate from ECG 94 NIBP 138/72 NIBP BP-Mean 87 Respiration from ECG 18 SpO2 94 I&O: 05/22/17 05/23/17 05/24/17 06:59 06:59 06:59 Intake Total 1495 1306 Output Total 4040 2545 125 Balance -2545 -1239 -125 Result Diagrams: 05/21/17 04:00 05/23/17 04:00 <He Nam - Last Filed: 05/23/17 11:57> Phys Exam - Physical Examination Constitutional: NAD HEENT: moist MMs diffuse rhonchi and mild diffuse wheezing, ant wheezing worse air movement overall increased from admission Gastrointestinal: soft, non-tender, positive bowel sounds 1+BLE edema, small left knee effusion, no warmth to knees tessie. joint line tenderness Deviation from normal: warmth to BLE and erythema, unchanged from admission <Sue Dumas - Last Filed: 05/23/17 08:44> Dx/Plan (1) Acute hypercapnic respiratory failure Code(s): J96.02 - ACUTE RESPIRATORY FAILURE WITH HYPERCAPNIA Status: Acute Plan: 2/2 COPD, likely KISHAN, obesity hypoventilation syndrome 05/19/17 trach placed tolerated trach collar overnight will need outpt PFTs (2) COPD exacerbation Code(s): J44.1 - CHRONIC OBSTRUCTIVE PULMONARY DISEASE W (ACUTE) EXACERBATION Status: Acute Plan: some improvement s/p steroids cont levaquin day # 4 cont solumedrol cont duonebs CXR today. (3) Obesity hypoventilation syndrome Code(s): E66.2 - MORBID (SEVERE) OBESITY WITH ALVEOLAR HYPOVENTILATION Status : Acute Plan: see above. Weight loss recommended. (4) Chronic acquired lymphedema Code(s): I89.0 - LYMPHEDEMA, NOT ELSEWHERE CLASSIFIED Status: Chronic Plan: Cont lasix but changed to once daily. improving, now down 3.5 liters ECHO does not reveal CHF as suspected. (5) Knee pain, left Code(s): M25.562 - PAIN IN LEFT KNEE Status: Chronic Plan: hx of fibromylagia. Some effusion but not enough to drain. Acutely worsening pain per pateint. Will initiate lyrica for fibromyalgia. btain left knee x ray (6) HTN (hypertension) Code(s): I10 - ESSENTIAL (PRIMARY) HYPERTENSION Status: Acute QualifierTitle: Hypertension type: essential hypertension Qualified Code( s): I10 - Essential (primary) hypertension Plan: sswtiched to metoprolol per cards as patient has run sinus tach for much of hospitalization (7) Pulmonary embolism Code(s): I26.99 - OTHER PULMONARY EMBOLISM WITHOUT ACUTE COR PULMONALE Status : Acute QualifierTitle: Chronicity: acute Plan: on therapeutic lovenox. initiate eliquis today after abd/pelvis CT and CL removed. (8) Elevated troponin I measurement Code(s): R74.8 - ABNORMAL LEVELS OF OTHER SERUM ENZYMES Status: Acute Plan: likely demand ischemia with PE. downtrending trop lipid panel impressive not on statin (LDL < 100) (9) Hematuria Code(s): R31.9 - HEMATURIA, UNSPECIFIED Status: Acute QualifierTitle: Hematuria type: gross Qualified Code(s): R31.0 - Gross hematuria Plan: evaluated by urology, plan for abd/pelvis CT today and outpt cystoscopy (10) Obesity (BMI 30-39.9) Code(s): E66.9 - OBESITY, UNSPECIFIED Status: Chronic Plan: A1C 5.5 (11) Tobacco abuse Code(s): Z72.0 - TOBACCO USE Status: Chronic Plan: nicotine patch offered and smoking cessation encouraged. <Sue Dumas - Last Filed: 05/23/17 08:44> Attending Addendum - Attending Addendum I personally evaluated the patient and discussed the management with Dr. Dumas. I agree with and repeatedthe History, Examination, Assessment and Plan documented above with any addition or exceptions noted below. Patient in great spirits this morning. Would like more [place]. Used to take it for fibromyalgia. Long history of left knee pain, worse this morning. On exam , FROM, strength 5/5, TTP over infrapatellar tendon. No effusion. Low suspicion for septic arthritis. Will manage with non-opiates. For fibromyalgia begin TCA/lyrica. Appreciate urology recs, await scan. If continued improvement likely d/c in the next several days with placement. <He Nam - Last Filed: 05/23/17 11:57>
[2017-05-23] MEDS: Hydrocodone-Acetamin 15 ML UDCUP PO SCH (09:56)
[2017-05-23] MEDS: Pantoprazole 40 MG VIAL IVP SCH (09:59)
[2017-05-23] MEDS: Enoxaparin Sodium 120 MG/0.8 ML SYRINGE SC SCH (10:00)
[2017-05-23] MEDS: Polyethylene Glycol 3350 17 GM Packet PER TUBE SCH (10:02)
[2017-05-23] MEDS: Metoprolol Tartrate 50 MG TAB PO SCH ×2 (10:03→22:20)
[2017-05-23] MEDS: Senokot S 8.6-50 MG TAB PO SCH ×2 (10:03→22:20)
[2017-05-23] MEDS: Pregabalin 75 MG CAP PO SCH ×2 (10:03→22:19)
--- NOTE | 2017-05-23 10:47 | RAD ---
LEFT KNEE FOUR VIEWS: History: Left knee pain and effusion. Comparison: None. FINDINGS: There is a small joint effusion. Moderate medial compartment narrowing with osteophyte formation and subchondral sclerosis. No acute displaced fracture or malalignment. Mild genu varum. Mild soft tissue edema. There are ossicles of the inferior patellar tendon. IMPRESSION: Degenerative changes. No acute abnormality. POS: TPC
[2017-05-23] MEDS: Nicotine 14 MG PATCH TD SCH (11:00)
--- NOTE | 2017-05-23 11:06 | RAD ---
CHEST ONE VIEW: History: Diffuse bronchi. Comparison: 05-21-17 FINDINGS: Heart size is enlarged. Tracheostomy tube is similar. Feeding tube tip is not well seen. Right central venous catheter tip is at the inferior SVC. No pneumothorax. Layering right pleural effusion. Opacities are present in both lung bases. IMPRESSION: Similar appearance of the chest. The previously noted nodular density right upper lobe is likely outs meredith of the patient on the prior exam. POS: TPC
[2017-05-23] MEDS ORDERED: diphenhydrAMINE 25 MG CAP PER TUBE PRN (11:32)
[2017-05-23] MEDS: Finasteride 5 MG TAB PO SCH (12:31)
--- NOTE | 2017-05-23 13:44 | CT ---
ABDOMEN AND PELVIC CT SCAN WITH AND WITHOUT IV CONTRAST WITH MULTIPHASE IMAGING: History: 66-year-old male with hematuria. FINDINGS: Moderate mostly linear pleural based parenchymal changes are noted in the right lower lobe posteriorl y and laterally as well as some minimal linear and parenchymal changes in the left lower lobe with so me posterior pleural thickening. NG tube is in place. The right hemidiaphragm is elevated. The gallbl adder demonstrates some dependent increased attenuation change, probably some dependent sludge withou t overt distinct calculus. The remainder of the liver, pancreas, spleen, and adrenal glands are unrem arkable. No renal calculus or acute obstruction. Normal appearing appendix. Colonic diverticulosis without acute diverticulitis. Bilateral fat containing inguinal hernias. Byrnes catheter within the b ladder without evidence for a bladder mass although it is incompletely filled. 1 cm diameter left bertin al cyst with several renal hypodensities too small to characterize but statistically a very small cys t. No adenopathy, abscess, or abnormal fluid collection. IMPRESSION: Bilateral lower lung parenchymal and pleural changes worse in the right base. No renal calculus or ac [place] obstruction. Bilateral fat containing inguinal hernias. Colonic diverticulosis without acute d iverticulitis. Minimal nonspecific scattered areas of subcutaneous fat stranding of the anterior abdo men. POS: ANGEL
[2017-05-23] MEDS ORDERED: Potassium Chloride 20 MEQ TAB PO SCH (15:00)
[2017-05-23] MEDS: HYDROcodone/Acetaminophen 5/325 mg Tablet PO PRN ×2 (15:31→23:31)
--- NOTE | 2017-05-23 18:49 | PRG ---
DATE OF SERVICE: 05/23/2017 SUBJECTIVE: The patient did well overnight. Catheter has been draining fine. He has no concerns. Objective: His vitals have been stable. He has remained off any sort of ventilator support other than oxygen and his catheter has put out 700 in the last shift. It is draining pink-tinged urine. The CT scan was obtained this morning and reviewed personally and revealed no concern with the upper tracts with possible concern for a small right-sided bladder lesion versus a small clot in the bladder. I reviewed this with the patient. At this time, even if there is a small bladder tumor, it is not safe to take him to the operating room both from a pulmonary status and his pulmonary embolism status. I would allow him to further improve clinically and perform cystoscopy as an outpatient. This can be done on anticoagulant. At that time, if this is clot, it would have passed or be distinctly different that tumor. Otherwise, if there is a small bladder tumor noted at that time, I would coordinate with the other physicians as to the best time to safely hold his anticoagulant for a more definitive procedure. I reviewed this with the patient and the nurse present as well. ASSESSMENT: We have a 66-year-old male with gross hematuria which still could be from his prostate; continue tamsulosin and finasteride. It may be related to a small bladder tumor. Since he was admitted with pulmonary emboli and acute respiratory failure, now status post trach, I would continue with his pulmonary improvements and his anticoagulant for now. I agree with removing the catheter sooner than later, and I wrote for this to come out in the morning. He can follow up in the office for cystoscopy, and we come go up with a plan depending on those findings. ANA LUISA
--- NOTE | 2017-05-23 21:29 | PRG ---
DATE OF SERVICE: 05/23/2017 Jt Cedillo is doing extremely well. We actually gave him coffee. For some reason he has a Dobb barry tube in and I am not sure if there is documentation that he is having swallowing dysfunction and clinically he certainly is not. OBJECTIVE: LUNGS: Clear. HEART: Regular rhythm. ABDOMEN: Soft. LABORATORY DATA: White count 11.1, hemoglobin 12.4, platelets 162,000. Sodium 142, potassium 4.1, chloride 93, bicarb 36, BUN 39, creatinine 0.75. IMPRESSION: 1. Obesity hypoventilation. 2. Chronic obstructive pulmonary disease. 3. Status post tracheostomy. Recommend removing his Dobhoff. We will slowly advance his diet with bedside assessments. Maybe by Monday, we can change him to a #6 fenestrated trach and move forward f rom there. He is progressing very nicely. He has no muscle weakness. He is not like most patients who go for tracheostomy and then they have some degree of critical illness muscle wasting. This gentleman presented and underwent tracheostomy only several days after presentation, so his abil ity to swallow should be intact.
[2017-05-23] MEDS: Rivaroxaban 15 MG TAB PO SCH (22:20)
[2017-05-23] MEDS: Tamsulosin HCl 0.4 MG CAP PO SCH (22:20)
[2017-05-24 05:18] LABS: Hemoglobin 13.3 g/dL (14.0-18.0); Platelet Count 201 thou/uL (130-400)
[2017-05-24 05:30] LABS: BUN (Urea Nitrogen) 36 mg/dL (8.4-25.7); Calc. Creatinine Clearance 148 mL/min (70-130); Calcium 9.8 mg/dL (7.8-10.44); Estimated GFR-MDRD Greater than 90; Glucose 86 mg/dL (80-115)
[2017-05-24 05:40] LABS: Anion Gap 10 mmol/L (10-20); Carbon Dioxide 39 mmol/L (23-31); Chloride 95 mmol/L (98-107); Potassium 4.2 mmol/L (3.5-5.1); Sodium 140 mmol/L (136-145)
[2017-05-24] MEDS ORDERED: diphenhydrAMINE 25 MG CAP PO PRN (07:12)
--- NOTE | 2017-05-24 07:16 | PDOC.FM ---
- Subjective Subjective: Doing better every day. States his breathing better than in long time. He reports pain improved with lyrica. He is taking small sips of fluids now as well. Participated well in PT yesterday. - Objective MAR Reviewed: Yes Vital Signs & Weight: Vital Signs (12 hours) Temp Pulse Resp BP Pulse Ox 05/24/17 06:52 80 20 90 L 05/24/17 01:16 98.0 F 80 22 H 96 05/24/17 00:42 98.0 F 80 22 H 125/96 H 96 05/23/17 22:10 94 19 93 L 05/23/17 20:00 98.3 F 94 19 94 L Weight Admit Weight 116.12 kg Weight 105.5 kg Most Recent Monitor Data Heart Rate from ECG 89 NIBP 143/72 NIBP BP-Mean 89 Respiration from ECG 17 SpO2 94 I&O: 05/23/17 05/24/17 05/25/17 06:59 06:59 06:59 Intake Total 1306 520 Output Total 3592 2852 Balance -1521 -2947 Result Diagrams: 05/24/17 04:52 05/24/17 04:52 <Sue Dumas - Last Filed: 05/24/17 09:16> - Objective Vital Signs & Weight: Vital Signs (12 hours) Temp Pulse Resp BP BP Pulse Ox 05/24/17 10:35 79 20 85 L 05/24/17 07:45 98.7 F 79 20 140/82 91 L 05/24/17 06:52 80 20 90 L 05/24/17 01:16 98.0 F 80 22 H 96 05/24/17 00:42 98.0 F 80 22 H 125/96 H 96 Weight Admit Weight 116.12 kg Weight 105.5 kg Most Recent Monitor Data Heart Rate from ECG 89 NIBP 143/72 NIBP BP-Mean 89 Respiration from ECG 17 SpO2 94 I&O: 05/23/17 05/24/17 05/25/17 06:59 06:59 06:59 Intake Total 1306 520 Output Total 1265 2855 Balance -0698 -0414 Result Diagrams: 05/24/17 04:52 05/24/17 04:52 <He Nam - Last Filed: 05/24/17 12:07> Phys Exam - Physical Examination Constitutional: NAD HEENT: moist MMs few diffuse wheezes, diffuse rhonchi but improved. Air movement improved with better expansion of lungs. Cardiovascular: RRR, no significant murmur Musculoskeletal: pulses present 1+ pitting BLE edema, left knee without pain, small effusion noted Neurological: non-focal, normal sensation, moves all 4 limbs Psychiatric: normal affect, A&O x 3 Skin: cap refill <2 seconds <Sue Dumas - Last Filed: 05/24/17 09:16> Dx/Plan (1) COPD exacerbation Code(s): J44.1 - CHRONIC OBSTRUCTIVE PULMONARY DISEASE W (ACUTE) EXACERBATION Status: Acute Plan: some improvement s/p steroids levaquin day # 5 solumedrol switched to prednisone, cont for one more day. cont duonebs No significant changes on CXR yesterday. (2) Acute hypercapnic respiratory failure Code(s): J96.02 - ACUTE RESPIRATORY FAILURE WITH HYPERCAPNIA Status: Resolved Plan: 2/2 COPD, likely KISHAN, obesity hypoventilation syndrome 05/19/17 trach placed cont to titrate O2 requirement down on trach collar outpt PFTs Further trach mgmt per pulm (3) Obesity hypoventilation syndrome Code(s): E66.2 - MORBID (SEVERE) OBESITY WITH ALVEOLAR HYPOVENTILATION Status : Acute Plan: see above. Weight loss recommended. Patient wants to join a gym (4) Chronic acquired lymphedema Code(s): I89.0 - LYMPHEDEMA, NOT ELSEWHERE CLASSIFIED Status: Chronic Plan: cont lasix while in hospital and may need small daily dose at home. (5) Pulmonary embolism Code(s): I26.99 - OTHER PULMONARY EMBOLISM WITHOUT ACUTE COR PULMONALE Status : Acute QualifierTitle: Chronicity: acute Plan: transitioned over to xarelto. cont per guidelines. Likely needs 6 month course with discussion on outpatient basis for cont treatment. (6) Knee pain, left Code(s): M25.562 - PAIN IN LEFT KNEE Status: Chronic Plan: hx of fibromylagia. improved with lyrica. cont and may consider addition of amitriptyline (7) HTN (hypertension) Code(s): I10 - ESSENTIAL (PRIMARY) HYPERTENSION Status: Acute QualifierTitle: Hypertension type: essential hypertension Qualified Code( s): I10 - Essential (primary) hypertension Plan: sswtiched to metoprolol per cards as patient has run sinus tach for much of hospitalization (8) Hematuria Code(s): R31.9 - HEMATURIA, UNSPECIFIED Status: Acute QualifierTitle: Hematuria type: gross Qualified Code(s): R31.0 - Gross hematuria Plan: seen by urology and CT abd/pelvis reveals possible blood clot vs small bladder tumor. Dr. Barkley to f/u with pt outpt for cystoscopy. May cont xarelto for this procedure per Dr. Barkley. (9) Obesity (BMI 30-39.9) Code(s): E66.9 - OBESITY, UNSPECIFIED Status: Chronic Plan: A1C 5.5 (10) Tobacco abuse Code(s): Z72.0 - TOBACCO USE Status: Chronic Plan: nicotine patch offered and smoking cessation encouraged. (11) Elevated troponin I measurement Code(s): R74.8 - ABNORMAL LEVELS OF OTHER SERUM ENZYMES Status: Resolved Plan: likely demand ischemia with PE. downtrending trop lipid panel impressive not on statin (LDL < 100) <Sue Dumas - Last Filed: 05/24/17 09:16> Attending Addendum - Attending Addendum I personally evaluated the patient and discussed the management with Dr. Dumas. I agree with and repeated the History, Examination, Assessment and Plan documented above with any addition or exceptions noted below. Patient doing great today, sitting up watching TV. Lungs sound better today with better air movement. Trach/feeds per Dr. Aguilera. Urology following. Switching to NOAC. RF management. <He Nam - Last Filed: 05/24/17 12:07>
[2017-05-24] MEDS: predniSONE 20 MG TAB PO SCH (08:39)
[2017-05-24] MEDS: Pregabalin 75 MG CAP PO SCH ×2 (08:39→20:05)
[2017-05-24] MEDS: Metoprolol Tartrate 50 MG TAB PO SCH ×2 (08:40→20:06)
[2017-05-24] MEDS: Finasteride 5 MG TAB PO SCH (08:40)
[2017-05-24] MEDS: Furosemide 40 MG TAB PO SCH (08:40)
[2017-05-24] MEDS: Polyethylene Glycol 3350 17 GM Packet PER TUBE SCH (08:40)
[2017-05-24] MEDS: HYDROcodone/Acetaminophen 5/325 mg Tablet PO PRN ×3 (08:41→23:41)
[2017-05-24] MEDS ORDERED: Pantoprazole 40 MG GRANULES PACKET PER TUBE SCH (09:00)
[2017-05-24] MEDS: Rivaroxaban 15 MG TAB PO SCH ×2 (09:29→20:05)
[2017-05-24] MEDS: Nicotine 14 MG PATCH TD SCH (09:30)
--- NOTE | 2017-05-24 18:07 | PRG ---
DATE OF SERVICE: 05/24/2017 SUBJECTIVE: Mr. Cedillo is doing well. He has no trouble swallowing liquids. He has not had cough ed up any coffee. OBJECTIVE: VITAL SIGNS: He is afebrile, heart rate is 70, respirations 20, oximetry is 85-92% on a trach collar . LUNGS: Clear. HEART: Regular rhythm. ABDOMEN: Soft. LABORATORY DATA: White count 11.1 on 4th; hemoglobin was 12.4 on 4th, today it is 13.3. Electrolytes were unremarkable, bicarbonate is 39. The admitted to me that for the last 4 years he has been falling asleep driving. IMPRESSION: 1. Obesity hypoventilation syndrome. 2. Chronic obstructive pulmonary disease of unclear severity. 3. Right lower lobe filling defect on CT angiogram. It is unclear whether or not this is a false po sitive. He is being anticoagulated. 4. Obesity and deconditioning. PLAN: Advance his diet, perhaps downsize his trach on Monday to a cuffless fenestrated No. 6 He appears to be progressing nicely.
[2017-05-24] MEDS: Tamsulosin HCl 0.4 MG CAP PO SCH (20:06)
[2017-05-25] MEDS: Acetaminophen 325 MG TAB PO PRN ×2 (05:42→19:34)
[2017-05-25 05:43] LABS: Anion Gap 12 mmol/L (10-20); BUN (Urea Nitrogen) 32 mg/dL (8.4-25.7); Calc. Creatinine Clearance 0 mL/min (70-130); Calcium 9.6 mg/dL (7.8-10.44); Carbon Dioxide 37 mmol/L (23-31); Chloride 94 mmol/L (98-107); Estimated GFR-MDRD Greater than 90; Glucose 86 mg/dL (80-115); Potassium 4.1 mmol/L (3.5-5.1); Sodium 139 mmol/L (136-145)
--- NOTE | 2017-05-25 07:46 | PDOC.FM ---
- Subjective Subjective: Patient has no complaints this morning. He reports doing well with swallow. No events overnight. Still on trach collar at 28% and on 6 lts O2 satting 93-94%.Working well with PT. - Objective MAR Reviewed: Yes Vital Signs & Weight: Vital Signs (12 hours) Temp Pulse Resp BP Pulse Ox 05/25/17 06:27 93 L 05/25/17 06:26 78 18 93 L 05/25/17 05:18 93 L 05/25/17 04:50 98.2 F 73 17 106/59 L 95 05/25/17 02:34 93 L 05/25/17 02:28 83 18 93 L 05/25/17 00:00 98.8 F 89 19 118/71 94 L 05/24/17 22:14 84 18 93 L 05/24/17 19:59 97.9 F 82 19 138/75 95 Weight Admit Weight 116.12 kg Weight 108.6 g Most Recent Monitor Data Heart Rate from ECG 89 NIBP 143/72 NIBP BP-Mean 89 Respiration from ECG 17 SpO2 94 I&O: 05/24/17 05/25/17 05/26/17 06:59 06:59 06:59 Intake Total 520 1260 Output Total 2855 2100 Balance -6168 -500 Result Diagrams: 05/24/17 04:52 05/25/17 05:06 <Sue Dumas - Last Filed: 05/25/17 07:44> - Objective Vital Signs & Weight: Vital Signs (12 hours) Temp Pulse Resp BP Pulse Ox 05/25/17 10:41 80 20 05/25/17 08:08 97.8 F 79 24 H 90 L 05/25/17 07:15 97.8 F 79 24 H 130/75 90 L 05/25/17 06:27 93 L 05/25/17 06:26 78 18 93 L 05/25/17 05:18 93 L 05/25/17 04:50 98.2 F 73 17 106/59 L 95 05/25/17 02:34 93 L 05/25/17 02:28 83 18 93 L 05/25/17 00:00 98.8 F 89 19 118/71 94 L Weight Admit Weight 116.12 kg Weight 108.6 g Most Recent Monitor Data Heart Rate from ECG 89 NIBP 143/72 NIBP BP-Mean 89 Respiration from ECG 17 SpO2 94 I&O: 05/24/17 05/25/17 05/26/17 06:59 06:59 06:59 Intake Total 520 1260 Output Total 2855 2100 Balance -2335 -840 Result Diagrams: 05/24/17 04:52 05/25/17 05:06 <He Nam - Last Filed: 05/25/17 11:07> Phys Exam - Physical Examination Constitutional: NAD HEENT: moist MMs few scattered course breath sounds but air movement overall improved few diffuse wheezes Cardiovascular: RRR, no significant murmur 1+ pitting BLE edema Neurological: non-focal, normal sensation, moves all 4 limbs Psychiatric: normal affect, A&O x 3 Skin: cap refill <2 seconds <Sue Dumas - Last Filed: 05/25/17 07:44> Dx/Plan (1) COPD exacerbation Code(s): J44.1 - CHRONIC OBSTRUCTIVE PULMONARY DISEASE W (ACUTE) EXACERBATION Status: Acute Plan: Day 5 steroids, stop after todays dose. Day 6 levaquin. Will complete 7 day course will need to cont duoneb treatment here and home with albuterol. (2) Acute hypercapnic respiratory failure Code(s): J96.02 - ACUTE RESPIRATORY FAILURE WITH HYPERCAPNIA Status: Resolved Plan: 2/2 COPD, likely KISHAN, obesity hypoventilation syndrome 05/19/17 trach placed cont to titrate O2 requirement down on trach collar outpt PFTs Further trach mgmt per pulm (3) Obesity hypoventilation syndrome Code(s): E66.2 - MORBID (SEVERE) OBESITY WITH ALVEOLAR HYPOVENTILATION Status : Acute Plan: encourage weight loss. (4) Chronic acquired lymphedema Code(s): I89.0 - LYMPHEDEMA, NOT ELSEWHERE CLASSIFIED Status: Chronic Plan: cont lasix, appreciate recs per cards (5) Pulmonary embolism Code(s): I26.99 - OTHER PULMONARY EMBOLISM WITHOUT ACUTE COR PULMONALE Status : Acute QualifierTitle: Chronicity: acute Plan: cont xarelto and follow up outpt for cont mgmt. (6) Knee pain, left Code(s): M25.562 - PAIN IN LEFT KNEE Status: Chronic Plan: improved, patient taking norco here with understanding that he will not go home on narcotics. (7) HTN (hypertension) Code(s): I10 - ESSENTIAL (PRIMARY) HYPERTENSION Status: Acute QualifierTitle: Hypertension type: essential hypertension Qualified Code( s): I10 - Essential (primary) hypertension Plan: cont metoprolol (8) Hematuria Code(s): R31.9 - HEMATURIA, UNSPECIFIED Status: Acute QualifierTitle: Hematuria type: gross Qualified Code(s): R31.0 - Gross hematuria Plan: f/u outpt with Dr. Barkley. . (9) Obesity (BMI 30-39.9) Code(s): E66.9 - OBESITY, UNSPECIFIED Status: Chronic Plan: A1C 5.5 (10) Tobacco abuse Code(s): Z72.0 - TOBACCO USE Status: Chronic Plan: nicotine patch offered and smoking cessation encouraged. (11) Elevated troponin I measurement Code(s): R74.8 - ABNORMAL LEVELS OF OTHER SERUM ENZYMES Status: Resolved Plan: likely demand ischemia with PE. trop down. no chest pain. lipid panel wnl. ASCVD 10 yr risk is 9.6%- patient highly motivated to make lifestyle changes. recommend consideration for outpt follow up and consideration of statin at later time. <Sue Dumas - Last Filed: 05/25/17 07:44> Attending Addendum - Attending Addendum I personally evaluated the patient and discussed the management with Dr. Dumas. I agree with and repeated the History, Examination, Assessment and Plan documented above with any addition or exceptions noted below. COPD exac stable/improved. 1 more day of antibiotics KISHAN/OHS/possible chronic respiratory failure. Stable. Pulm toilet. PE, improved. On Xarelto. Await trach change, then dispo per pulm. <He Nam - Last Filed: 05/25/17 11:07>
[2017-05-25] MEDS: Pregabalin 75 MG CAP PO SCH ×2 (07:59→20:26)
[2017-05-25] MEDS: predniSONE 20 MG TAB PO SCH (08:01)
[2017-05-25] MEDS: Finasteride 5 MG TAB PO SCH (08:02)
[2017-05-25] MEDS: Furosemide 40 MG TAB PO SCH (08:02)
[2017-05-25] MEDS: Rivaroxaban 15 MG TAB PO SCH ×2 (08:02→19:34)
[2017-05-25] MEDS: Metoprolol Tartrate 50 MG TAB PO SCH ×2 (08:02→19:37)
[2017-05-25] MEDS: HYDROcodone/Acetaminophen 5/325 mg Tablet PO PRN ×2 (08:03→16:04)
[2017-05-25] MEDS: Polyethylene Glycol 3350 17 GM Packet PER TUBE SCH (08:03)
[2017-05-25] MEDS: Nicotine 14 MG PATCH TD SCH (08:05)
[2017-05-25 15:17] LABS: pH, Arterial 7.43 (7.35-7.45)
[2017-05-25 15:18] LABS: Actual Bicarbonate (HCO3a) 36.6 mEq/L (22-26); Base Excess (BEa) 10.1 mEq/L (0 (+/-) 2.5); Hemoglobin (Hb) 14.1 g/dL (14.0-18.0); O2 Tension (PaO2) 45.8 mmHg (80.0-100.0)
[2017-05-25 15:19] LABS: Calcium, Ionized 1.2 mmol/L (1.12-1.30); Puncture Site LR
--- NOTE | 2017-05-25 19:00 | PRG ---
DATE OF SERVICE: 05/25/2017 SUBJECTIVE: Mr. Cedillo did well overnight. He has no complaints. He is tolerating his diet. OBJECTIVE: VITAL SIGNS: He is afebrile, heart rate 86, respiratory rate 24, oximetry only90 on room air. LUNGS: Clear. HEART: Regular rhythm. ABDOMEN: Soft. I have ordered a blood gas on room air. His pH is 7.43, CO2 of 57, pO2 of 45. Sodium 139, potassium 4.1, chloride 94, bicarbonate 37, BUN 32, creatinine 0.75. IMPRESSION AND PLAN: Respiratory failure associated with untreated sleep apnea, chronic obstructive pulmonary disease. He has an abnormal CT angiogram. I am not sure if this is a true positive or not , but he will be anticoagulated for a minimum of 3 months. Plan to downsize his trach to #6 cuffless fenestrated trach and see how he does with the capped trach and recommend that we sleep him with the cap open on a humidified trach collar with low flow oxygen and then nasal cannula oxygen during the day with trach cap and see how he does.
[2017-05-25] MEDS: Tamsulosin HCl 0.4 MG CAP PO SCH (19:36)
[2017-05-26] MEDS: HYDROcodone/Acetaminophen 5/325 mg Tablet PO PRN ×3 (03:37→20:39)
--- NOTE | 2017-05-26 08:41 | PDOC.FM ---
- Subjective Subjective: [Patient is doing well this morning. Dr. Aguilera has changed his trach to a fenestrated trach this morning. He will get a speaking valve shortly. He is motivated and ready to go home. All details of trach care and plans for oxygen have been discussed at bedside with the patient and . - Objective MAR Reviewed: Yes Vital Signs & Weight: Vital Signs (12 hours) Temp Pulse Resp BP Pulse Ox 05/26/17 08:00 98.3 F 83 20 114/56 L 88 L 05/26/17 06:16 90 L 05/26/17 06:14 84 16 05/26/17 03:33 98.8 F 88 16 115/58 L 92 L 05/26/17 02:28 82 16 92 L 05/26/17 01:02 94 L 05/25/17 23:36 98.4 F 81 16 130/61 97 05/25/17 22:29 79 20 94 L Weight Admit Weight 116.12 kg Weight 108.409 kg Most Recent Monitor Data Heart Rate from ECG 89 NIBP 143/72 NIBP BP-Mean 89 Respiration from ECG 17 SpO2 94 I&O: 05/25/17 05/26/17 05/27/17 06:59 06:59 06:59 Intake Total 1260 Output Total 2100 Balance -840 Result Diagrams: 05/24/17 04:52 05/25/17 05:06 Additional Labs: Laboratory Tests 05/25/17 15:05 ABG pH 7.43 ABG pCO2 57.0 H ABG pO2 45.8 L* <Sue Dumas - Last Filed: 05/26/17 08:39> - Objective Vital Signs & Weight: Vital Signs (12 hours) Temp Pulse Resp BP Pulse Ox 05/26/17 14:17 80 16 05/26/17 08:00 98.3 F 83 20 114/56 L 88 L 05/26/17 06:16 90 L 05/26/17 06:14 84 16 Weight Admit Weight 116.12 kg Weight 108.409 kg Most Recent Monitor Data Heart Rate from ECG 89 NIBP 143/72 NIBP BP-Mean 89 Respiration from ECG 17 SpO2 94 I&O: 05/25/17 05/26/17 05/27/17 06:59 06:59 06:59 Intake Total 1260 Output Total 2100 Balance -840 Result Diagrams: 05/24/17 04:52 05/25/17 05:06 <He Nam - Last Filed: 05/26/17 15:34> Dx/Plan (1) COPD exacerbation Code(s): J44.1 - CHRONIC OBSTRUCTIVE PULMONARY DISEASE W (ACUTE) EXACERBATION Status: Acute Plan: Completed 5 days of steroids and 7 days of abx. cont duonebs at home 4 x daily and follow up with Dr. Aguilera for PFTs outpatient. (2) Acute hypercapnic respiratory failure Code(s): J96.02 - ACUTE RESPIRATORY FAILURE WITH HYPERCAPNIA Status: Resolved Plan: 2/2 COPD, likely KISHAN, obesity hypoventilation syndrome 05/19/17 trach placed trach collar PM and O2 via NC during the day. outpt PFTs Follow up with Dr. Aguilera outpt. (3) Obesity hypoventilation syndrome Code(s): E66.2 - MORBID (SEVERE) OBESITY WITH ALVEOLAR HYPOVENTILATION Status : Acute Plan: encourage weight loss. At this time pulm has recommended PM trach collar. (4) Chronic acquired lymphedema Code(s): I89.0 - LYMPHEDEMA, NOT ELSEWHERE CLASSIFIED Status: Chronic Plan: cont lasix and follow up next week in the office. (5) Pulmonary embolism Code(s): I26.99 - OTHER PULMONARY EMBOLISM WITHOUT ACUTE COR PULMONALE Status : Acute QualifierTitle: Chronicity: acute Plan: cont xarelto and follow up outpt for cont mgmt. (6) Knee pain, left Code(s): M25.562 - PAIN IN LEFT KNEE Status: Chronic Plan: improved, patient taking norco here with understanding that he will not go home on narcotics. (7) HTN (hypertension) Code(s): I10 - ESSENTIAL (PRIMARY) HYPERTENSION Status: Acute QualifierTitle: Hypertension type: essential hypertension Qualified Code( s): I10 - Essential (primary) hypertension Plan: cont metoprolol (8) Hematuria Code(s): R31.9 - HEMATURIA, UNSPECIFIED Status: Acute QualifierTitle: Hematuria type: gross Qualified Code(s): R31.0 - Gross hematuria Plan: f/u outpt with Dr. Barkley. . (9) Obesity (BMI 30-39.9) Code(s): E66.9 - OBESITY, UNSPECIFIED Status: Chronic Plan: A1C 5.5 Recommend weight loss. (10) Tobacco abuse Code(s): Z72.0 - TOBACCO USE Status: Chronic Plan: smoking cessation encouraged. Recommend ~6wks of 14 mg patch and then 7 mg patch for additional 2 weeks to wean. (11) Elevated troponin I measurement Code(s): R74.8 - ABNORMAL LEVELS OF OTHER SERUM ENZYMES Status: Resolved Plan: likely demand ischemia with PE. trop down. no chest pain. lipid panel wnl. ASCVD 10 yr risk is 9.6%- patient highly motivated to make lifestyle changes. recommend consideration for outpt follow up and consideration of statin at later time. (12) Fibromyalgia Status: Chronic Plan: Patient started on lyrica this hospitalization. Cont and follow up outpatient. <Sue Dumas - Last Filed: 05/26/17 08:39> Attending Addendum - Attending Addendum I personally evaluated the patient and discussed the management with Dr. Dumas. I agree with and repeated the History, Examination, Assessment and Plan documented above with any addition or exceptions noted below. No cp/sob/n/v/f/c. Doing well. Ok for discharge. Follow up as above. <He Nam - Last Filed: 05/26/17 15:34>
[2017-05-26] MEDS: Rivaroxaban 15 MG TAB PO SCH ×2 (09:58→20:41)
[2017-05-26] MEDS: Pregabalin 75 MG CAP PO SCH ×2 (09:58→20:38)
[2017-05-26] MEDS: Furosemide 40 MG TAB PO SCH (10:00)
[2017-05-26] MEDS: predniSONE 20 MG TAB PO SCH (10:00)
[2017-05-26] MEDS: Finasteride 5 MG TAB PO SCH (10:01)
[2017-05-26] MEDS: Metoprolol Tartrate 50 MG TAB PO SCH ×2 (10:01→20:40)
[2017-05-26] MEDS: Polyethylene Glycol 3350 17 GM Packet PER TUBE SCH (10:02)
[2017-05-26] MEDS: Nicotine 14 MG PATCH TD SCH (12:02)
--- NOTE | 2017-05-26 12:35 | PRG ---
DATE OF SERVICE: 05/26/2017 Jt Cedillo is doing well. We elected to change his tracheostomy tube out to a #6 fenestrated tr ach. We did not remove his sutures and these will be removed in the office next week. He tolerated the change well. A speaking valve has been ordered. He will need to follow up with me in a week. He needs to sleep with a humidified trach collar with o xygen on at night and then cap his trach during the day and wear nasal cannula oxygen for now. His p rednisone dose can be decreased to 20 mg a day. IMPRESSION 1. Obesity hypoventilation syndrome. 2. Chronic obstructive pulmonary disease. 3. Obesity and deconditioning. 4. Chronic daytime hypersomnolence secondary to untreated sleep apnea. He should not be driving for now. He should not have been driving for the last 4 years. It is fortu connie he did not have an accident. He says this is the best he has felt in years and his says th is is the best he has looked in years.
[2017-05-26] MEDS: Tamsulosin HCl 0.4 MG CAP PO SCH (20:40)
[2017-05-26] MEDS: diphenhydrAMINE 25 MG CAP PO PRN (23:05)
--- NOTE | 2017-05-26 23:53 | DIS-2 ---
DATE OF ADMISSION: 05/16/2017 DATE OF TRANSITION: 05/26/2017 RESIDENT: Sue Dumas M.D. HOSPITAL COURSE: Mr. Jt Cedillo is a 66-year-old male with a past medical history of fibromyalg ia, who presented to the [facility] on 05/16/2017 with worsening bilateral lower extremity edema a nd erythema. At that time, patient was found to have a small right subsegmental lower segment pulmon benjamín embolism and was therefore admitted to the hospital. Upon initial presentation, it was thought t hat the patient had suspected congestive heart failure. This is the reason for bilateral lower extre mity edema as well was the patient's exertional shortness of breath. Of note, that night, the patien t had a code green event in which patient became very disoriented and a blood gas was obtained at eduardo t time. Of significant note, blood gas at that time, had a pH of 7.23, pCO2 of 108, and pO2 of 69. The patient was placed on BiPAP at that time and transferred to [facility]. The patient continued on BiPAP for the next 2 days; however, there was no significant improvement in his ABG. Of importance note, the patient was a DNR upon admission to the hospital, which was agreed upon between himself and his w leslee. It was discussed amongst the as to what measures to take at that time since intubation for ventilation was recommended. He decided to proceed with this and patient was intubated with plans f or tracheostomy placement at that time, since it appeared the patient most likely had acute hypercapn ic respiratory failure secondary to obesity hypoventilation syndrome as well as COPD and likely sleep apnea. Significantly noted that at this point, patient's echocardiogram had returned and did not sh ow evidence for congestive heart failure. In fact, the patient had an ejection fraction of 50%-55% w ith no mention of diastolic dysfunction. The patient did well on the ventilator and received his tra cheostomy on 05/19/2017. The patient progressed quite well following this. He began to become more coherent. His ABG had significant improvement. On follow up ABG was performed on 05/25/2017 that sh owed a pH of 7.43, pCO2 of 57, and pO2 45, while the patient was on trach collar. In regards to the patient's pulmonary status, he continue to do well and transitioned to nasal cannula by 05/26/2017, a nd was wearing trach collar at night. The patient did receive a fenestrated trach on 05/26/2017 as w ell as a [place] Valve. Patient was actually intended to go home on that day; however, there was a hold up with trach supplies and oxygen for discharge and therefore had to be held over in the hospi neyda. In regards to patient's pulmonary embolism, he was started on therapeutic Lovenox for this and transi tioned over to Xarelto after discussion with him and his on 05/23/2017. Of note, upon admission, the patient had microscopic hematuria upon admission. This continued to pro jalil and had gross hematuria after having a Byrnes placed, this could not resolve. Due to the patien t's pulmonary embolism, which at this point, had had no source and patient's significant smoking hist ory. Neurology was called and a CT scan of the abdomen and pelvis was done. There was notation of a questionable area of focal right lateral bladder wall thickening that may correspond to a blood clot versus bladder wall tumor. Urology indicated that they would see the patient as a followup and do a cystoscopy at that time to investigate this further secondary to patient being on the blood thinner. In regards to the patient's blood pressure, the patient was placed on high dose Lasix and had good di uresis during early part of this hospitalization. Patient continued to diurese through much of his h ospitalization and lower extremity edema significantly improved by 05/26/2017. The patient was place d on metoprolol as he had significant high elevated pressures upon admission and this did control his blood pressure rather well as well as his heart rate. The patient did have some elevated troponins upon admission; however, these never trended into the po sitive range and instead downtrended. It was thought that this was likely secondary to demand ischem ia. The patient did have the fairly normal echo performed. The patient also had a lipid panel perfo ed, which did not show significant abnormalities with an LDL of 66. In regards to patient's obesity hypoventilation syndrome, patient was checked for diabetes upon his a dmission; however, hemoglobin A1c was 5.5. The patient progressed really well throughout his hospital stay and again it was only held up on 02/0 12/2017 secondary to waiting tracheostomy squad. Please see the discharge summary to be done upon patient's actual discharge from the hospital.
[2017-05-27] MEDS: HYDROcodone/Acetaminophen 5/325 mg Tablet PO PRN ×3 (03:39→18:42)
--- NOTE | 2017-05-27 06:33 | PDOC.FM ---
- Subjective Subjective: Feeling great this morning. He is up in a chair and speaking without difficulty. He is ready to go home. - Objective MAR Reviewed: Yes Vital Signs & Weight: Vital Signs (12 hours) Temp Pulse Resp BP Pulse Ox 05/27/17 06:16 95 05/27/17 06:12 69 16 05/27/17 02:51 84 16 95 05/26/17 23:38 98.8 F 92 16 114/53 L 93 L 05/26/17 21:52 70 16 93 L 05/26/17 20:00 98.0 F 93 16 92 L 05/26/17 18:55 98.0 F 93 16 138/61 92 L Weight Admit Weight 116.12 kg Weight 108.409 kg Most Recent Monitor Data Heart Rate from ECG 89 NIBP 143/72 NIBP BP-Mean 89 Respiration from ECG 17 SpO2 94 I&O: 05/25/17 05/26/17 05/27/17 06:59 06:59 06:59 Intake Total 1260 1000 Output Total 2100 Balance -840 1000 Result Diagrams: 05/24/17 04:52 05/25/17 05:06 Dx/Plan (1) COPD (chronic obstructive pulmonary disease) Status: Acute Qualifiers: COPD type: emphysema (2) HTN (hypertension) Code(s): I10 - ESSENTIAL (PRIMARY) HYPERTENSION Status: Acute Qualifiers: Hypertension type: essential hypertension Qualified Code(s): I10 - Essential (primary) hypertension (3) Hematuria Code(s): R31.9 - HEMATURIA, UNSPECIFIED Status: Acute Qualifiers: Hematuria type: gross Qualified Code(s): R31.0 - Gross hematuria (4) Obesity hypoventilation syndrome Code(s): E66.2 - MORBID (SEVERE) OBESITY WITH ALVEOLAR HYPOVENTILATION Status : Acute (5) Pulmonary embolism Code(s): I26.99 - OTHER PULMONARY EMBOLISM WITHOUT ACUTE COR PULMONALE Status : Acute Qualifiers: Chronicity: acute (6) Chronic acquired lymphedema Code(s): I89.0 - LYMPHEDEMA, NOT ELSEWHERE CLASSIFIED Status: Chronic (7) Fibromyalgia Status: Chronic (8) Knee pain, left Code(s): M25.562 - PAIN IN LEFT KNEE Status: Chronic (9) Obesity (BMI 30-39.9) Code(s): E66.9 - OBESITY, UNSPECIFIED Status: Chronic (10) Tobacco abuse Code(s): Z72.0 - TOBACCO USE Status: Chronic (11) Acute hypercapnic respiratory failure Code(s): J96.02 - ACUTE RESPIRATORY FAILURE WITH HYPERCAPNIA Status: Resolved (12) Elevated troponin I measurement Code(s): R74.8 - ABNORMAL LEVELS OF OTHER SERUM ENZYMES Status: Resolved - Plan Plan: 1. COPD exacerbation - s/p steroids and abx - Cont duonebs at home and f/u with Dr. Aguilera outpatient 2. Acute hypercapnic respiratory failure - 2/2 COPD, likely KISHAN, obesity hypoventilation syndrome - Trach placed 05/19/17 - Trach collar PM and O2 NC during day - PFTs outpatient 3. Obesity hypoventilation syndrome - Patient plans to work on continuing to lose weight - PM trach collar 4. Chronic acquired lymphedema - Continue lasix and will f/u with Dr. Dumas in office next week 5. Pulmonary embolism - Continue xarelto and f/u outpatient for ongoing managment 6. Knee pain, left - Improved, taking norco PRN but discussed again that patient will not be discharged on narcotics 7. HTN - Continue metoprolol 8. Hematuria - f/u outpatient with Dr. Barkley 9. Obesity - A1c 5.5, discussed ongoing weight loss 10. Tobacco abuse - Smoking cessation encouraged - Will taper down patch 11. Fibromyalgia - Continue lyrica per PCP PPX: Xarelto Dispo: Pending insurance approval of home trach supplies. Patient is not stable for d/c without them
[2017-05-27] MEDS: Metoprolol Tartrate 50 MG TAB PO SCH ×2 (08:29→20:54)
[2017-05-27] MEDS: predniSONE 20 MG TAB PO SCH (08:30)
[2017-05-27] MEDS: Furosemide 40 MG TAB PO SCH (08:30)
[2017-05-27] MEDS: Rivaroxaban 15 MG TAB PO SCH ×2 (08:30→20:54)
[2017-05-27] MEDS: Finasteride 5 MG TAB PO SCH (08:31)
[2017-05-27] MEDS: Pregabalin 75 MG CAP PO SCH ×2 (08:32→22:20)
[2017-05-27] MEDS: Nicotine 14 MG PATCH TD SCH (08:37)
[2017-05-27] MEDS: Polyethylene Glycol 3350 17 GM Packet PER TUBE SCH (10:04)
[2017-05-27] MEDS ORDERED: Bisacodyl 10 MG SUPP PR PRN (19:37)
[2017-05-27] MEDS: Senokot S 8.6-50 MG TAB PO SCH (20:54)
[2017-05-27] MEDS: Tamsulosin HCl 0.4 MG CAP PO SCH (20:55)
[2017-05-27] MEDS: diphenhydrAMINE 25 MG CAP PO PRN (22:50)
[2017-05-28] MEDS: HYDROcodone/Acetaminophen 5/325 mg Tablet PO PRN ×3 (02:59→18:36)
--- NOTE | 2017-05-28 06:59 | PDOC.FM ---
- Subjective Subjective: Mr. Cedillo is feeling well this morning. He is up and talking at the nurses station and has no new complaints this morning. He is feeling more confident about his ability to care for his trach at home. - Objective MAR Reviewed: Yes Vital Signs & Weight: Vital Signs (12 hours) Temp Pulse Resp Pulse Ox 05/28/17 06:43 94 L 05/28/17 06:42 83 16 05/28/17 02:42 71 16 95 05/27/17 22:26 82 16 05/27/17 20:00 98.1 F 82 16 94 L Weight Admit Weight 116.12 kg Weight 103.646 kg Most Recent Monitor Data Heart Rate from ECG 89 NIBP 143/72 NIBP BP-Mean 89 Respiration from ECG 17 SpO2 94 I&O: 05/26/17 05/27/17 05/28/17 06:59 06:59 06:59 Intake Total 1000 1989 Balance 999 1989 Result Diagrams: 05/24/17 04:52 05/25/17 05:06 <Corina Watson - Last Filed: 05/28/17 07:47> - Objective Vital Signs & Weight: Vital Signs (12 hours) Temp Pulse Resp BP Pulse Ox 05/28/17 08:00 97.5 F L 78 18 90 L 05/28/17 07:40 97.5 F L 78 18 117/58 L 89 L 05/28/17 06:43 94 L 05/28/17 06:42 83 16 05/28/17 02:42 71 16 95 Weight Admit Weight 116.12 kg Weight 103.646 kg Most Recent Monitor Data Heart Rate from ECG 89 NIBP 143/72 NIBP BP-Mean 89 Respiration from ECG 17 SpO2 94 I&O: 05/27/17 05/28/17 05/29/17 06:59 06:59 06:59 Intake Total 1000 1989 Balance 999 1989 Result Diagrams: 05/24/17 04:52 05/25/17 05:06 <Albert Chester - Last Filed: 05/28/17 10:48> Phys Exam - Physical Examination Constitutional: NAD HEENT: moist MMs, sclera anicteric Neck: supple trach in place faint expiratory wheezing at BL bases, no crackles or rhonchi Cardiovascular: RRR, no significant murmur Gastrointestinal: soft, no distention 1+ edema to ankles BL Neurological: non-focal, moves all 4 limbs Psychiatric: normal affect, A&O x 3 <Corina Watson - Last Filed: 05/28/17 07:47> Dx/Plan (1) COPD (chronic obstructive pulmonary disease) Status: Acute QualifierTitle: COPD type: emphysema (2) HTN (hypertension) Code(s): I10 - ESSENTIAL (PRIMARY) HYPERTENSION Status: Acute QualifierTitle: Hypertension type: essential hypertension Qualified Code( s): I10 - Essential (primary) hypertension (3) Hematuria Code(s): R31.9 - HEMATURIA, UNSPECIFIED Status: Acute QualifierTitle: Hematuria type: gross Qualified Code(s): R31.0 - Gross hematuria (4) Obesity hypoventilation syndrome Code(s): E66.2 - MORBID (SEVERE) OBESITY WITH ALVEOLAR HYPOVENTILATION Status : Acute (5) Pulmonary embolism Code(s): I26.99 - OTHER PULMONARY EMBOLISM WITHOUT ACUTE COR PULMONALE Status : Acute QualifierTitle: Chronicity: acute (6) Chronic acquired lymphedema Code(s): I89.0 - LYMPHEDEMA, NOT ELSEWHERE CLASSIFIED Status: Chronic (7) Fibromyalgia Status: Chronic (8) Knee pain, left Code(s): M25.562 - PAIN IN LEFT KNEE Status: Chronic (9) Obesity (BMI 30-39.9) Code(s): E66.9 - OBESITY, UNSPECIFIED Status: Chronic (10) Tobacco abuse Code(s): Z72.0 - TOBACCO USE Status: Chronic (11) Acute hypercapnic respiratory failure Code(s): J96.02 - ACUTE RESPIRATORY FAILURE WITH HYPERCAPNIA Status: Resolved (12) Elevated troponin I measurement Code(s): R74.8 - ABNORMAL LEVELS OF OTHER SERUM ENZYMES Status: Resolved - Plan Plan: 1. COPD exacerbation - s/p steroids and abx - Cont duonebs at home and f/u with Dr. Aguilera outpatient 2. Acute hypercapnic respiratory failure - 2/2 COPD, likely KISHAN, obesity hypoventilation syndrome - Trach placed 05/19/17 - Trach collar PM and O2 NC during day - PFTs outpatient 3. Obesity hypoventilation syndrome - Patient plans to work on continuing to lose weight - PM trach collar 4. Chronic acquired lymphedema - Continue lasix and will f/u with Dr. Dumas in office next week 5. Pulmonary embolism - Continue Xarelto and f/u outpatient for ongoing management 6. Knee pain, left - Improved, taking norco PRN but discussed again that patient will not be discharged on narcotics - Will discuss transition to Tylenol #3 today 7. HTN - Continue Metoprolol 8. Hematuria - f/u outpatient with Dr. Barkley 9. Obesity - A1c 5.5, discussed ongoing weight loss 10. Tobacco abuse - Smoking cessation encouraged - Will taper down patch 11. Fibromyalgia - Continue lyrica per PCP PPX: Xarelto Dispo: Pending insurance approval of home trach supplies. Patient is not stable for d/c without them <Corina Watson - Last Filed: 05/28/17 07:47> Attending Addendum - Attending Addendum I personally evaluated the patient and discussed the management with [Walter ] I agree with the History, Examination, Assessment and Plan documented above with any addition or exceptions noted below. Patient stable. Waiting on trach supplies. Stable for discharge home tomorrow when supplies available. <Albert Chester - Last Filed: 05/28/17 10:48>
[2017-05-28] MEDS: predniSONE 20 MG TAB PO SCH (07:55)
[2017-05-28] MEDS: Furosemide 40 MG TAB PO SCH (07:56)
[2017-05-28] MEDS: Senokot S 8.6-50 MG TAB PO SCH ×2 (07:56→20:37)
[2017-05-28] MEDS: Finasteride 5 MG TAB PO SCH (07:56)
[2017-05-28] MEDS: Pregabalin 75 MG CAP PO SCH ×2 (07:57→20:37)
[2017-05-28] MEDS: Metoprolol Tartrate 50 MG TAB PO SCH ×2 (07:57→20:37)
[2017-05-28] MEDS: Rivaroxaban 15 MG TAB PO SCH ×2 (07:57→20:38)
[2017-05-28] MEDS: Polyethylene Glycol 3350 17 GM Packet PER TUBE SCH (07:58)
[2017-05-28] MEDS: Nicotine 14 MG PATCH TD SCH (10:38)
[2017-05-28] MEDS: Tamsulosin HCl 0.4 MG CAP PO SCH (20:37)
[2017-05-28] MEDS: diphenhydrAMINE 25 MG CAP PO PRN (22:26)
[2017-05-29] MEDS: HYDROcodone/Acetaminophen 5/325 mg Tablet PO PRN ×3 (02:11→18:17)
--- NOTE | 2017-05-29 06:13 | PDOC.FM ---
- Subjective Subjective: Feeling well this morning. No acute events overnight and no new complaints this morning. - Objective MAR Reviewed: Yes Vital Signs & Weight: Vital Signs (12 hours) Temp Pulse Resp BP Pulse Ox 05/29/17 01:57 83 16 85 L 05/28/17 22:12 84 16 92 L 05/28/17 20:00 98.0 F 101 H 18 96 05/28/17 19:07 98.0 F 101 H 18 124/58 L 93 L 05/28/17 18:14 100 18 93 L Weight Admit Weight 116.12 kg Weight 102.965 kg Most Recent Monitor Data Heart Rate from ECG 89 NIBP 143/72 NIBP BP-Mean 89 Respiration from ECG 17 SpO2 94 I&O: 05/27/17 05/28/17 05/29/17 06:59 06:59 06:59 Intake Total 999 1989 Balance 999 1989 Result Diagrams: 05/24/17 04:52 05/25/17 05:06 <Corina Watson - Last Filed: 05/29/17 10:03> - Objective Vital Signs & Weight: Vital Signs (12 hours) Temp Pulse Resp BP Pulse Ox 05/29/17 10:17 87 20 91 L 05/29/17 07:40 98.4 F 73 20 124/59 L 94 L 05/29/17 07:10 98.4 F 73 20 94 L 05/29/17 06:28 88 20 92 L 05/29/17 01:57 83 16 85 L Weight Admit Weight 116.12 kg Weight 102.965 kg Most Recent Monitor Data Heart Rate from ECG 89 NIBP 143/72 NIBP BP-Mean 89 Respiration from ECG 17 SpO2 94 I&O: 05/28/17 05/29/17 05/30/17 06:59 06:59 06:59 Intake Total 1989 720 Balance 1989 720 Result Diagrams: 05/24/17 04:52 05/25/17 05:06 <He Nam - Last Filed: 05/29/17 12:59> Phys Exam - Physical Examination Constitutional: NAD HEENT: moist MMs, sclera anicteric tracheostomy in place Neck: supple Respiratory: no wheezing, clear to auscultation bilateral Cardiovascular: RRR, no significant murmur Gastrointestinal: soft, non-tender, no distention, positive bowel sounds trace edema to BL ankles Neurological: non-focal, moves all 4 limbs Psychiatric: normal affect, A&O x 3 Skin: no rash <Corina Watson - Last Filed: 05/29/17 10:03> Dx/Plan (1) COPD (chronic obstructive pulmonary disease) Status: Acute QualifierTitle: COPD type: emphysema (2) HTN (hypertension) Code(s): I10 - ESSENTIAL (PRIMARY) HYPERTENSION Status: Acute QualifierTitle: Hypertension type: essential hypertension Qualified Code( s): I10 - Essential (primary) hypertension (3) Hematuria Code(s): R31.9 - HEMATURIA, UNSPECIFIED Status: Acute QualifierTitle: Hematuria type: gross Qualified Code(s): R31.0 - Gross hematuria (4) Obesity hypoventilation syndrome Code(s): E66.2 - MORBID (SEVERE) OBESITY WITH ALVEOLAR HYPOVENTILATION Status : Acute (5) Pulmonary embolism Code(s): I26.99 - OTHER PULMONARY EMBOLISM WITHOUT ACUTE COR PULMONALE Status : Acute QualifierTitle: Chronicity: acute (6) Chronic acquired lymphedema Code(s): I89.0 - LYMPHEDEMA, NOT ELSEWHERE CLASSIFIED Status: Chronic (7) Fibromyalgia Status: Chronic (8) Knee pain, left Code(s): M25.562 - PAIN IN LEFT KNEE Status: Chronic (9) Obesity (BMI 30-39.9) Code(s): E66.9 - OBESITY, UNSPECIFIED Status: Chronic (10) Tobacco abuse Code(s): Z72.0 - TOBACCO USE Status: Chronic (11) Acute hypercapnic respiratory failure Code(s): J96.02 - ACUTE RESPIRATORY FAILURE WITH HYPERCAPNIA Status: Resolved (12) Elevated troponin I measurement Code(s): R74.8 - ABNORMAL LEVELS OF OTHER SERUM ENZYMES Status: Resolved - Plan Plan: 1. COPD exacerbation - s/p steroids and abx - Cont duonebs at home and f/u with Dr. Aguilera outpatient 2. Acute hypercapnic respiratory failure - 2/2 COPD, likely KISHAN, obesity hypoventilation syndrome - Trach placed 05/19/17 - Trach collar PM and O2 NC during day - PFTs outpatient 3. Obesity hypoventilation syndrome - Patient plans to work on continuing to lose weight - PM trach collar 4. Chronic acquired lymphedema - Continue lasix and will f/u with Dr. Dumas in office this week 5. Pulmonary embolism - Continue Xarelto and f/u outpatient for ongoing management 6. Knee pain, left - Improved, taking norco PRN but discussed again that patient will not be discharged on narcotics - Transitioning to Tylenol #3 and outpatient pain control per Dr. Dumas 7. HTN - Continue Metoprolol 8. Hematuria - f/u outpatient with Dr. Barkley - Patient has appt today but will try to reschedule for later this week 9. Obesity - A1c 5.5, discussed ongoing weight loss 10. Tobacco abuse - Smoking cessation encouraged - Will taper down patch outpatient with Dr. Dumas 11. Fibromyalgia - Continue lyrica per PCP - Consider addition of amitryptyline if sx not adequately controlled PPX: Xarelto Dispo: Pending insurance approval of home trach supplies. Patient is not stable for d/c without them <Corina Watson - Last Filed: 05/29/17 10:03> Attending Addendum - Attending Addendum I personally evaluated the patient and discussed the management with Dr. Watson. I agree with and repeated the History, Examination, Assessment and Plan documented above with any addition or exceptions noted below. Patient doing well. No cp/sob/n/v/f/c. Discharge pending above. <He Nam - Last Filed: 05/29/17 12:59>
[2017-05-29] MEDS: predniSONE 20 MG TAB PO SCH (07:55)
[2017-05-29] MEDS: Furosemide 40 MG TAB PO SCH (07:55)
[2017-05-29] MEDS: Rivaroxaban 15 MG TAB PO SCH ×2 (07:56→19:52)
[2017-05-29] MEDS: Pregabalin 75 MG CAP PO SCH ×2 (07:56→19:49)
[2017-05-29] MEDS: Senokot S 8.6-50 MG TAB PO SCH ×2 (07:56→19:49)
[2017-05-29] MEDS: Metoprolol Tartrate 50 MG TAB PO SCH ×2 (07:59→19:51)
[2017-05-29] MEDS: Polyethylene Glycol 3350 17 GM Packet PER TUBE SCH (07:59)
[2017-05-29] MEDS: Finasteride 5 MG TAB PO SCH (08:00)
[2017-05-29] MEDS: Nicotine 14 MG PATCH TD SCH (08:01)
[2017-05-29] MEDS: Acetaminophen/Codeine 30-300mg Tablet PO PRN ×2 (15:45→22:19)
--- NOTE | 2017-05-29 19:24 | PRG ---
DATE OF SERVICE: 05/29/2017 SUBJECTIVE: Mr. Cedillo is still in the hospital. Apparently, his insurance company has not improv ed oxygen therapy, although now his room air sats above 90 (92). I have explained to the glass frame fitter that [facility], just simple tracheostomy tubing with humidifier that every tracheostomy patient needs, but apparen tly this still has not been approved by the insurance company. As I have explained this was not comp licated and this is a basic absolute medical necessity not up for debate. OBJECTIVE: LUNGS: Clear. CARDIOVASCULAR: Regular rhythm. ABDOMEN: Soft. He also needs nebulizer at home, to do nebulized ipratropium and albuterol 3-4 times a day. He is to go home with slow tapering dose of steroids. The majority of his hypoxemia is I believe related to untreated sleep apnea for many years. I would not increase his metoprolol above 50 mg twice daily given probable significant obstructive yoel ng disease. He cannot have PFTs until his tracheostomy is out. We will continue with anticoagulation for thromboembolic disease. I met with the and the patien t and answered all their questions.
[2017-05-29] MEDS: Tamsulosin HCl 0.4 MG CAP PO SCH (19:48)
[2017-05-29] MEDS: diphenhydrAMINE 25 MG CAP PO PRN (22:19)
[2017-05-30] MEDS: HYDROcodone/Acetaminophen 5/325 mg Tablet PO PRN ×3 (02:39→18:05)
--- NOTE | 2017-05-30 06:19 | PDOC.FM ---
- Subjective Subjective: Mr. Cedillo is in good spirits this morning. He continues to feel better each day and notes the swelling in his legs continues to improve as well. He is currently saturating 85% on room air and reportedly had persistent saturations to 82-83% on room air overnight. He does not feel particularly short of breath with these episodes. - Objective MAR Reviewed: Yes Vital Signs & Weight: Vital Signs (12 hours) Temp Pulse Resp BP Pulse Ox 05/30/17 01:52 81 16 97 05/29/17 21:49 88 16 95 05/29/17 20:00 98.7 F 88 16 93 L 05/29/17 19:58 98.7 F 100 20 146/70 H 93 L 05/29/17 18:22 86 18 92 L Weight Admit Weight 116.12 kg Weight 102.739 kg Most Recent Monitor Data Heart Rate from ECG 89 NIBP 143/72 NIBP BP-Mean 89 Respiration from ECG 17 SpO2 94 I&O: 05/28/17 05/29/17 05/30/17 06:59 06:59 06:59 Intake Total 1989 720 720 Balance 1989 720 720 Result Diagrams: 05/24/17 04:52 05/25/17 05:06 <Corina Watson - Last Filed: 05/31/17 06:45> - Objective Vital Signs & Weight: Vital Signs (12 hours) Temp Pulse Resp BP Pulse Ox 05/31/17 11:30 98.8 F 79 18 116/59 L 90 L 05/31/17 08:35 97.6 F 100 18 91 L 05/31/17 08:00 97.6 F 100 18 135/64 91 L 05/31/17 07:59 91 L 05/31/17 07:58 98 16 05/31/17 01:41 88 18 93 L Weight Admit Weight 116.392 kg Weight 101.423 kg Most Recent Monitor Data Heart Rate from ECG 89 NIBP 143/72 NIBP BP-Mean 89 Respiration from ECG 17 SpO2 94 I&O: 05/30/17 05/31/17 06/01/17 06:59 06:59 06:59 Intake Total 720 480 Balance 720 480 Result Diagrams: 05/24/17 04:52 05/25/17 05:06 <He Nam - Last Filed: 05/31/17 12:07> Phys Exam - Physical Examination Constitutional: NAD HEENT: moist MMs, sclera anicteric tracheostomy in place Neck: supple Respiratory: no wheezing, clear to auscultation bilateral Cardiovascular: RRR, no significant murmur Gastrointestinal: soft, non-tender, no distention, positive bowel sounds trace edema to ankles BL Neurological: non-focal, moves all 4 limbs Psychiatric: normal affect, A&O x 3 Skin: normal turgor, cap refill <2 seconds <Corina Watson - Last Filed: 05/31/17 06:45> Dx/Plan (1) COPD (chronic obstructive pulmonary disease) Status: Acute QualifierTitle: COPD type: emphysema (2) HTN (hypertension) Code(s): I10 - ESSENTIAL (PRIMARY) HYPERTENSION Status: Acute QualifierTitle: Hypertension type: essential hypertension Qualified Code( s): I10 - Essential (primary) hypertension (3) Hematuria Code(s): R31.9 - HEMATURIA, UNSPECIFIED Status: Acute QualifierTitle: Hematuria type: gross Qualified Code(s): R31.0 - Gross hematuria (4) Obesity hypoventilation syndrome Code(s): E66.2 - MORBID (SEVERE) OBESITY WITH ALVEOLAR HYPOVENTILATION Status : Acute (5) Pulmonary embolism Code(s): I26.99 - OTHER PULMONARY EMBOLISM WITHOUT ACUTE COR PULMONALE Status : Acute QualifierTitle: Chronicity: acute (6) Chronic acquired lymphedema Code(s): I89.0 - LYMPHEDEMA, NOT ELSEWHERE CLASSIFIED Status: Chronic (7) Fibromyalgia Status: Chronic (8) Knee pain, left Code(s): M25.562 - PAIN IN LEFT KNEE Status: Chronic (9) Obesity (BMI 30-39.9) Code(s): E66.9 - OBESITY, UNSPECIFIED Status: Chronic (10) Tobacco abuse Code(s): Z72.0 - TOBACCO USE Status: Chronic (11) Acute hypercapnic respiratory failure Code(s): J96.02 - ACUTE RESPIRATORY FAILURE WITH HYPERCAPNIA Status: Resolved (12) Elevated troponin I measurement Code(s): R74.8 - ABNORMAL LEVELS OF OTHER SERUM ENZYMES Status: Resolved - Plan Plan: 1. COPD exacerbation - s/p steroids and abx - Cont duonebs at home and f/u with Dr. Aguilera outpatient 2. Acute hypercapnic respiratory failure - 2/2 COPD, likely KISHAN, obesity hypoventilation syndrome - Trach placed 05/19/17 - Trach collar PM with humidfied air - PFTs outpatient 3. Obesity hypoventilation syndrome - Patient plans to work on continuing to lose weight - PM trach collar 4. Chronic acquired lymphedema - Continue lasix and will f/u with Dr. Dumas in office this week 5. Pulmonary embolism - Continue Xarelto and f/u outpatient for ongoing management 6. Knee pain, left - Improved, taking norco PRN but discussed again that patient will not be discharged on narcotics - Transitioning to Tylenol #3 and outpatient pain control per Dr. Dumas - Patient may benefit from pain management referral outpatient for ongoing chronic pain 7. HTN - Continue Metoprolol 8. Hematuria - f/u outpatient with Dr. Barkley 9. Obesity - A1c 5.5, discussed ongoing weight loss 10. Tobacco abuse - Smoking cessation encouraged - Will taper down patch outpatient with Dr. Dumas 11. Fibromyalgia - Continue lyrica per PCP - Consider addition of amitryptyline if sx not adequately controlled PPX: Xarelto Dispo: Pending insurance approval of home trach supplies. Patient is not stable for d/c without them <Corina Watson - Last Filed: 05/31/17 06:45> Attending Addendum - Attending Addendum I personally evaluated the patient and discussed the management with Dr. Watson. I agree with and repeated the History, Examination, Assessment and Plan documented above with any addition or exceptions noted below. Again doing well. No cp/sob/n/v/f/c. Exam unchanged. Awaiting supplies for discharge. <He Nam - Last Filed: 05/31/17 12:07>
[2017-05-30] MEDS: Nicotine 14 MG PATCH TD SCH (07:36)
[2017-05-30] MEDS: predniSONE 20 MG TAB PO SCH (07:36)
[2017-05-30] MEDS: Rivaroxaban 15 MG TAB PO SCH ×2 (07:36→19:50)
[2017-05-30] MEDS: Finasteride 5 MG TAB PO SCH (07:36)
[2017-05-30] MEDS: Senokot S 8.6-50 MG TAB PO SCH ×2 (07:36→19:48)
[2017-05-30] MEDS: Furosemide 40 MG TAB PO SCH (07:36)
[2017-05-30] MEDS: Acetaminophen/Codeine 30-300mg Tablet PO PRN ×3 (07:37→22:12)
[2017-05-30] MEDS: Metoprolol Tartrate 50 MG TAB PO SCH ×2 (07:37→19:48)
[2017-05-30] MEDS: Polyethylene Glycol 3350 17 GM Packet PER TUBE SCH (07:38)
[2017-05-30] MEDS: Pregabalin 75 MG CAP PO SCH ×2 (09:56→19:48)
[2017-05-30 14:28] VITALS: BMI 34.4
[2017-05-30] MEDS: Tamsulosin HCl 0.4 MG CAP PO SCH (19:48)
--- NOTE | 2017-05-30 20:35 | PRG ---
DATE OF SERVICE: 05/30/2017 SUBJECTIVE: We have been unable to get Mr. Cedillo's home health supplies, so he is still in the spital. OBJECTIVE: GENERAL: He is in no distress. VITAL SIGNS: He is afebrile, heart rate in the 80s, respiratory rate is in the teens, oximetry is 91 on room air. LUNGS: His lungs are clear and distant. HEART: Regular rhythm. ABDOMEN: Soft. IMPRESSION: 1. Respiratory failure secondary to untreated obesity hypoventilation syndrome. 2. Acute on chronic respiratory failure with hypoxemia and hypercarbia. 3. Status post tracheostomy. 4. Chronic obstructive pulmonary disease. PLAN: Home tomorrow no matter what. We can try to arrange home health supplies out of the hospital if his insurance company will not approve just simple tracheal humidification and nebulizer. It is l udicrous to keep him in the hospital for supplies for 5 days.
[2017-05-30] MEDS: diphenhydrAMINE 25 MG CAP PO PRN (23:16)
[2017-05-31] MEDS: HYDROcodone/Acetaminophen 5/325 mg Tablet PO PRN ×3 (02:01→18:00)
[2017-05-31] MEDS: Acetaminophen/Codeine 30-300mg Tablet PO PRN ×3 (06:27→21:53)
--- NOTE | 2017-05-31 06:46 | PDOC.FM ---
- Subjective Subjective: Mr. Cedillo is in good spirits this morning but is very ready to leave and get home to see his dog. He has no new complaints. He states the humidifier gave him a tickle in his throat and he coughed a lot last night with some oozing around the trach. He otherwise feels very confident in his ability to clean and care for it. - Objective MAR Reviewed: Yes Vital Signs & Weight: Vital Signs (12 hours) Temp Pulse Resp BP Pulse Ox 05/31/17 01:41 88 18 93 L 05/30/17 21:52 96 16 97 05/30/17 19:56 98.4 F 113 H 18 90 L 05/30/17 19:30 98.4 F 113 H 18 118/57 L 90 L Weight Admit Weight 116.392 kg Weight 101.423 kg Most Recent Monitor Data Heart Rate from ECG 89 NIBP 143/72 NIBP BP-Mean 89 Respiration from ECG 17 SpO2 94 I&O: 05/29/17 05/30/17 05/31/17 06:59 06:59 06:59 Intake Total 720 720 480 Balance 720 720 480 Result Diagrams: 05/24/17 04:52 05/25/17 05:06 <Corina Watson - Last Filed: 05/31/17 08:38> - Objective Vital Signs & Weight: Vital Signs (12 hours) Temp Pulse Resp BP Pulse Ox 05/31/17 11:30 98.8 F 79 18 116/59 L 90 L 05/31/17 08:35 97.6 F 100 18 91 L 05/31/17 08:00 97.6 F 100 18 135/64 91 L 05/31/17 07:59 91 L 05/31/17 07:58 98 16 05/31/17 01:41 88 18 93 L Weight Admit Weight 116.392 kg Weight 101.423 kg Most Recent Monitor Data Heart Rate from ECG 89 NIBP 143/72 NIBP BP-Mean 89 Respiration from ECG 17 SpO2 94 I&O: 05/30/17 05/31/17 06/01/17 06:59 06:59 06:59 Intake Total 720 480 Balance 720 480 Result Diagrams: 05/24/17 04:52 05/25/17 05:06 <He Nam - Last Filed: 05/31/17 12:08> Phys Exam - Physical Examination Constitutional: NAD HEENT: moist MMs, sclera anicteric trach in place Neck: supple Respiratory: no wheezing, clear to auscultation bilateral Cardiovascular: RRR, no significant murmur Gastrointestinal: soft, non-tender, no distention, positive bowel sounds trace edema BL to ankles Neurological: non-focal, moves all 4 limbs ambulating regularly Psychiatric: normal affect, A&O x 3 <Corina Watson - Last Filed: 05/31/17 08:38> Dx/Plan (1) COPD (chronic obstructive pulmonary disease) Status: Acute QualifierTitle: COPD type: emphysema (2) HTN (hypertension) Code(s): I10 - ESSENTIAL (PRIMARY) HYPERTENSION Status: Acute QualifierTitle: Hypertension type: essential hypertension Qualified Code( s): I10 - Essential (primary) hypertension (3) Hematuria Code(s): R31.9 - HEMATURIA, UNSPECIFIED Status: Acute QualifierTitle: Hematuria type: gross Qualified Code(s): R31.0 - Gross hematuria (4) Obesity hypoventilation syndrome Code(s): E66.2 - MORBID (SEVERE) OBESITY WITH ALVEOLAR HYPOVENTILATION Status : Acute (5) Pulmonary embolism Code(s): I26.99 - OTHER PULMONARY EMBOLISM WITHOUT ACUTE COR PULMONALE Status : Acute QualifierTitle: Chronicity: acute (6) Chronic acquired lymphedema Code(s): I89.0 - LYMPHEDEMA, NOT ELSEWHERE CLASSIFIED Status: Chronic (7) Fibromyalgia Status: Chronic (8) Knee pain, left Code(s): M25.562 - PAIN IN LEFT KNEE Status: Chronic (9) Obesity (BMI 30-39.9) Code(s): E66.9 - OBESITY, UNSPECIFIED Status: Chronic (10) Tobacco abuse Code(s): Z72.0 - TOBACCO USE Status: Chronic (11) Acute hypercapnic respiratory failure Code(s): J96.02 - ACUTE RESPIRATORY FAILURE WITH HYPERCAPNIA Status: Resolved (12) Elevated troponin I measurement Code(s): R74.8 - ABNORMAL LEVELS OF OTHER SERUM ENZYMES Status: Resolved - Plan Plan: 1. COPD exacerbation - s/p steroids and abx - Cont duonebs at home and f/u with Dr. Aguilera outpatient 2. Acute hypercapnic respiratory failure - 2/2 COPD, likely KISHAN, obesity hypoventilation syndrome - Trach placed 05/19/17 - Trach collar PM with humidified air - PFTs outpatient 3. Obesity hypoventilation syndrome - Patient plans to work on continuing to lose weight - PM trach collar 4. Chronic acquired lymphedema - Continue lasix and will f/u with Dr. Dumas in office this week 5. Pulmonary embolism - Continue Xarelto and f/u outpatient for ongoing management - Discussed bleeding precautions extensively this morning 6. Knee pain, left - Improved, taking norco PRN but discussed again that patient will not be discharged on narcotics - Transitioning to Tylenol #3 and outpatient pain control per Dr. Dumas - Patient may benefit from pain management referral outpatient for ongoing chronic pain 7. HTN - Continue Metoprolol 8. Hematuria - f/u outpatient with Dr. Barkley 9. Obesity - A1c 5.5, discussed ongoing weight loss 10. Tobacco abuse - Smoking cessation encouraged - Will taper down patch outpatient with Dr. Dumas 11. Fibromyalgia - Continue lyrica per PCP - Consider addition of amitryptyline if sx not adequately controlled PPX: Xarelto Dispo: Pending insurance approval of home trach supplies. Patient is not stable for d/c without them. Hopeful for today. <Corina Watson - Last Filed: 05/31/17 08:38> Attending Addendum - Attending Addendum I personally evaluated the patient and discussed the management with Dr. Watson. I agree with and repeated the History, Examination, Assessment and Plan documented above with any addition or exceptions noted below. Believe repeat note. Patient doing well. No cp/sob/n/v/f/c. Exam unchanged. Discharge pending supplies. <He Nam - Last Filed: 05/31/17 12:08>
[2017-05-31] MEDS: predniSONE 20 MG TAB PO SCH (08:14)
[2017-05-31] MEDS: Finasteride 5 MG TAB PO SCH (08:15)
[2017-05-31] MEDS: Metoprolol Tartrate 50 MG TAB PO SCH ×2 (08:15→20:35)
[2017-05-31] MEDS: Senokot S 8.6-50 MG TAB PO SCH ×2 (08:15→20:33)
[2017-05-31] MEDS: Pregabalin 75 MG CAP PO SCH ×2 (08:16→20:33)
[2017-05-31] MEDS: Furosemide 40 MG TAB PO SCH (08:16)
[2017-05-31] MEDS: Rivaroxaban 15 MG TAB PO SCH ×2 (08:17→20:35)
[2017-05-31] MEDS: Polyethylene Glycol 3350 17 GM Packet PER TUBE SCH (08:17)
[2017-05-31] MEDS: Nicotine 14 MG PATCH TD SCH (08:22)
--- NOTE | 2017-05-31 09:48 | PRG ---
DATE OF SERVICE: 05/31/2017 SUBJECTIVE: Mr. Jt Cedillo did not wear his trach collar last night, I have reminded him that h e has to wear a trach collar with his speaking valve off when he sleeps. He needs the humidity. OBJECTIVE: VITAL SIGNS: He is afebrile, heart rate in the 90s, respiratory rates in the teens, and oximetry is 91 on room air. LUNGS: He is free of wheezes at this time. HEART: Regular rhythm. ABDOMEN: Soft. He is still waiting for home health to get him a humidifier for trach collar at home. He does not ne ed suctioning. He has an excellent cough, so we do not really need to suction apparatus at the house . He does not need oxygen. He will need close followup. He also needs a slow steroid taper. He does need a nebulizer with ipra tropium and albuterol.
[2017-05-31] MEDS: Tamsulosin HCl 0.4 MG CAP PO SCH (20:35)
[2017-05-31] MEDS: diphenhydrAMINE 25 MG CAP PO PRN (21:53)
[2017-06-01] MEDS: HYDROcodone/Acetaminophen 5/325 mg Tablet PO PRN ×3 (02:25→22:08)
[2017-06-01] MEDS: Acetaminophen/Codeine 30-300mg Tablet PO PRN ×3 (06:10→18:21)
--- NOTE | 2017-06-01 06:25 | PDOC.FM ---
- Subjective Subjective: In good spirits this morning. Very ready to go home. No new complaints. - Objective MAR Reviewed: Yes Vital Signs & Weight: Vital Signs (12 hours) Temp Pulse Resp BP Pulse Ox 06/01/17 02:23 83 18 93 L 05/31/17 22:00 96 18 92 L 05/31/17 20:00 98.1 F 95 18 92 L 05/31/17 19:20 98.1 F 95 16 136/73 92 L Weight Admit Weight 116.392 kg Weight 102.376 kg Most Recent Monitor Data Heart Rate from ECG 89 NIBP 143/72 NIBP BP-Mean 89 Respiration from ECG 17 SpO2 94 I&O: 05/30/17 05/31/17 06/01/17 06:59 06:59 06:59 Intake Total 549 665 3196 Balance 370 434 0992 Result Diagrams: 05/24/17 04:52 05/25/17 05:06 <Corina Watson - Last Filed: 06/01/17 09:08> - Objective Vital Signs & Weight: Vital Signs (12 hours) Temp Pulse Resp BP Pulse Ox 06/01/17 14:34 80 14 06/01/17 11:00 90 14 06/01/17 08:28 98.7 F 96 20 123/59 L 92 L 06/01/17 07:40 98.7 F 96 20 92 L Weight Admit Weight 116.392 kg Weight 102.376 kg Most Recent Monitor Data Heart Rate from ECG 89 NIBP 143/72 NIBP BP-Mean 89 Respiration from ECG 17 SpO2 94 I&O: 05/31/17 06/01/17 06/02/17 06:59 06:59 06:59 Intake Total 480 1800 Balance 480 1800 Result Diagrams: 05/24/17 04:52 05/25/17 05:06 <Fátima Hayes - Last Filed: 06/01/17 18:45> Phys Exam - Physical Examination Constitutional: NAD HEENT: moist MMs, sclera anicteric trach in place Neck: supple Respiratory: no wheezing, clear to auscultation bilateral Cardiovascular: RRR, no significant murmur Gastrointestinal: soft, non-tender, no distention, positive bowel sounds 1-2+ to knees, stable, L slightly greater than R, no calf TTP Neurological: non-focal, moves all 4 limbs ambulating without issue Psychiatric: normal affect, A&O x 3 Skin: no rash <Corina Watson Bobby - Last Filed: 06/01/17 09:08> Dx/Plan (1) COPD (chronic obstructive pulmonary disease) Status: Acute QualifierTitle: COPD type: emphysema (2) HTN (hypertension) Code(s): I10 - ESSENTIAL (PRIMARY) HYPERTENSION Status: Acute QualifierTitle: Hypertension type: essential hypertension Qualified Code( s): I10 - Essential (primary) hypertension (3) Hematuria Code(s): R31.9 - HEMATURIA, UNSPECIFIED Status: Acute QualifierTitle: Hematuria type: gross Qualified Code(s): R31.0 - Gross hematuria (4) Obesity hypoventilation syndrome Code(s): E66.2 - MORBID (SEVERE) OBESITY WITH ALVEOLAR HYPOVENTILATION Status : Acute (5) Pulmonary embolism Code(s): I26.99 - OTHER PULMONARY EMBOLISM WITHOUT ACUTE COR PULMONALE Status : Acute QualifierTitle: Chronicity: acute (6) Chronic acquired lymphedema Code(s): I89.0 - LYMPHEDEMA, NOT ELSEWHERE CLASSIFIED Status: Chronic (7) Fibromyalgia Status: Chronic (8) Knee pain, left Code(s): M25.562 - PAIN IN LEFT KNEE Status: Chronic (9) Obesity (BMI 30-39.9) Code(s): E66.9 - OBESITY, UNSPECIFIED Status: Chronic (10) Tobacco abuse Code(s): Z72.0 - TOBACCO USE Status: Chronic (11) Acute hypercapnic respiratory failure Code(s): J96.02 - ACUTE RESPIRATORY FAILURE WITH HYPERCAPNIA Status: Resolved (12) Elevated troponin I measurement Code(s): R74.8 - ABNORMAL LEVELS OF OTHER SERUM ENZYMES Status: Resolved - Plan Plan: 1. COPD exacerbation - s/p steroids and abx - duonebs scheduled while in house - Cont duonebs at home and f/u with Dr. Aguilera outpatient 2. Acute hypercapnic respiratory failure - 2/2 COPD, likely KISHAN, obesity hypoventilation syndrome - Trach placed 05/19/17 - Trach collar PM with humidified air - PFTs outpatient 3. Obesity hypoventilation syndrome - Patient plans to work on continuing to lose weight - PM trach collar 4. Chronic acquired lymphedema - Continue lasix and will f/u with Dr. Dumas in office this week 5. Pulmonary embolism - Continue Xarelto and f/u outpatient for ongoing management - Discussed bleeding precautions extensively 6. Knee pain, left - Improved, taking norco PRN but discussed again that patient will not be discharged on narcotics - Transitioning to Tylenol #3 and outpatient pain control per Dr. Dumas - Patient may benefit from pain management referral outpatient for ongoing chronic pain 7. HTN - Continue Metoprolol 8. Hematuria - f/u outpatient with Dr. Barkley 9. Obesity - A1c 5.5, discussed ongoing weight loss 10. Tobacco abuse - Smoking cessation encouraged - Will taper down patch outpatient with Dr. Dumas 11. Fibromyalgia - Continue lyrica per PCP - Consider addition of amitryptyline if sx not adequately controlled PPX: Xarelto Dispo: Pending insurance approval of home trach supplies. Patient is not stable for d/c without them. Hopeful for today. <Corina Watson - Last Filed: 06/01/17 09:08> Attending Addendum - Attending Addendum I personally evaluated the patient and discussed the management with Dr. Watson. I agree with the History, Examination, Assessment and Plan documented above with any addition or exceptions noted below. Stable. Has been ready to be d/c'ed but still awaiting insurance approval for medical supplies. Zhen <Fátima Hayes - Last Filed: 06/01/17 18:45>
[2017-06-01] MEDS: Polyethylene Glycol 3350 17 GM Packet PER TUBE SCH (08:29)
[2017-06-01] MEDS: Pregabalin 75 MG CAP PO SCH ×2 (08:31→21:23)
[2017-06-01] MEDS: Rivaroxaban 15 MG TAB PO SCH ×2 (08:32→21:31)
[2017-06-01] MEDS: Metoprolol Tartrate 50 MG TAB PO SCH ×2 (08:32→21:24)
[2017-06-01] MEDS: Senokot S 8.6-50 MG TAB PO SCH ×2 (08:32→21:22)
[2017-06-01] MEDS: Finasteride 5 MG TAB PO SCH (08:33)
[2017-06-01] MEDS: Nicotine 14 MG PATCH TD SCH (08:33)
[2017-06-01] MEDS: predniSONE 20 MG TAB PO SCH (08:33)
[2017-06-01] MEDS: Furosemide 40 MG TAB PO SCH (08:33)
--- NOTE | 2017-06-01 10:02 | PRG ---
DATE OF SERVICE: 06/01/2017 SUBJECTIVE: Jt Cedillo is approved for his home health. He is tentatively scheduled to go home today. He is in no distress. His tracheostomy incision looks good. His stitches are out. He slep t with humidified air last night. OBJECTIVE: LUNGS: Clear. HEART: Regular rhythm. ABDOMEN: Soft. IMPRESSION: 1. Severe untreated sleep apnea, now with a tracheostomy. 2. Chronic obstructive pulmonary disease. 3. Deconditioning and obesity. 4. Thromboembolic disease? It is impossible to know whether this is a false positive now. He will b e treated for 3 months and follow up with me in 2 weeks.
[2017-06-01] MEDS ORDERED: Potassium Chloride 10 MEQ TAB PO SCH ×2 (10:30)
[2017-06-01] MEDS: Tamsulosin HCl 0.4 MG CAP PO SCH (21:23)
[2017-06-01] MEDS: diphenhydrAMINE 25 MG CAP PO PRN (22:09)
[2017-06-02] MEDS: Acetaminophen/Codeine 30-300mg Tablet PO PRN ×2 (05:27→13:05)
[2017-06-02] MEDS: Bisacodyl 5 MG TAB PO PRN ×2 (05:29→05:31)
--- NOTE | 2017-06-02 06:40 | PDOC.FM ---
- Subjective Subjective: Mr. Cedillo remains in good spirits but is very ready to go home. His spoke to insurance again and they told her they have to fax all of the info to another department this morning. He is feeling well and is ready to taper down nicotine patch. - Objective MAR Reviewed: Yes Vital Signs & Weight: Vital Signs (12 hours) Temp Pulse Resp BP Pulse Ox 06/02/17 04:35 93 L 06/01/17 23:09 98 06/01/17 20:01 98.5 F 86 24 H 108/54 L 92 L 06/01/17 20:00 98.5 F 86 24 H 92 L 06/01/17 19:35 92 L 06/01/17 19:32 92 L Weight Admit Weight 116.392 kg Weight 102.376 kg Most Recent Monitor Data Heart Rate from ECG 89 NIBP 143/72 NIBP BP-Mean 89 Respiration from ECG 17 SpO2 94 I&O: 05/31/17 06/01/17 06/02/17 06:59 06:59 06:59 Intake Total 480 1800 850 Balance 480 1800 850 Result Diagrams: 05/24/17 04:52 05/25/17 05:06 <Corina Watson E - Last Filed: 06/02/17 08:50> - Objective Vital Signs & Weight: Weight Admit Weight 116.392 kg Weight 102.376 kg Most Recent Monitor Data Heart Rate from ECG 89 NIBP 143/72 NIBP BP-Mean 89 Respiration from ECG 17 SpO2 94 Result Diagrams: 05/24/17 04:52 05/25/17 05:06 <Fátima Hayes - Last Filed: 06/04/17 09:19> Phys Exam - Physical Examination Constitutional: NAD HEENT: moist MMs, sclera anicteric Neck: supple tracheostomy in place Respiratory: no wheezing, clear to auscultation bilateral Cardiovascular: RRR, no significant murmur Gastrointestinal: soft, non-tender, no distention, positive bowel sounds 1-2+ edema in BLE, LLE > RLE Neurological: non-focal, normal sensation, moves all 4 limbs ambulating regularly without difficulty Psychiatric: normal affect, A&O x 3 Skin: no rash <Corina Watson - Last Filed: 06/02/17 08:50> Dx/Plan (1) COPD (chronic obstructive pulmonary disease) Status: Acute QualifierTitle: COPD type: emphysema (2) HTN (hypertension) Code(s): I10 - ESSENTIAL (PRIMARY) HYPERTENSION Status: Acute QualifierTitle: Hypertension type: essential hypertension Qualified Code( s): I10 - Essential (primary) hypertension (3) Hematuria Code(s): R31.9 - HEMATURIA, UNSPECIFIED Status: Acute QualifierTitle: Hematuria type: gross Qualified Code(s): R31.0 - Gross hematuria (4) Obesity hypoventilation syndrome Code(s): E66.2 - MORBID (SEVERE) OBESITY WITH ALVEOLAR HYPOVENTILATION Status : Acute (5) Pulmonary embolism Code(s): I26.99 - OTHER PULMONARY EMBOLISM WITHOUT ACUTE COR PULMONALE Status : Acute QualifierTitle: Chronicity: acute (6) Chronic acquired lymphedema Code(s): I89.0 - LYMPHEDEMA, NOT ELSEWHERE CLASSIFIED Status: Chronic (7) Fibromyalgia Status: Chronic (8) Knee pain, left Code(s): M25.562 - PAIN IN LEFT KNEE Status: Chronic (9) Obesity (BMI 30-39.9) Code(s): E66.9 - OBESITY, UNSPECIFIED Status: Chronic (10) Tobacco abuse Code(s): Z72.0 - TOBACCO USE Status: Chronic (11) Acute hypercapnic respiratory failure Code(s): J96.02 - ACUTE RESPIRATORY FAILURE WITH HYPERCAPNIA Status: Resolved (12) Elevated troponin I measurement Code(s): R74.8 - ABNORMAL LEVELS OF OTHER SERUM ENZYMES Status: Resolved - Plan Plan: 1. COPD exacerbation - s/p steroids and abx - duonebs scheduled while in house - Cont duonebs at home and f/u with Dr. Aguilera outpatient 2. Acute hypercapnic respiratory failure - 2/2 COPD, likely KISHAN, obesity hypoventilation syndrome - Trach placed 05/19/17 - Trach collar PM with humidified air - PFTs outpatient 3. Obesity hypoventilation syndrome - Patient plans to work on continuing to lose weight - PM trach collar 4. Chronic acquired lymphedema - Continue lasix and will f/u with Dr. Dumas in office next week - Started 10 mEQ K+ supplementation yesterday 5. Pulmonary embolism - Continue Xarelto and f/u outpatient for ongoing management - Discussed bleeding precautions extensively 6. Knee pain, left - Improved, taking norco PRN but discussed again that patient will not be discharged on narcotics - Tapering norco and transitioning to Tylenol #3 and outpatient pain control per Dr. Dumas - Patient may benefit from pain management referral outpatient for ongoing chronic pain 7. HTN - Continue Metoprolol 8. Hematuria - f/u outpatient with Dr. Barkley 9. Obesity - A1c 5.5, discussed ongoing weight loss 10. Tobacco abuse - Smoking cessation encouraged - Will taper down patch outpatient with Dr. Dumas 11. Fibromyalgia - Continue lyrica per PCP - Consider addition of amitryptyline if sx not adequately controlled PPX: Xarelto Dispo: Pending insurance approval of home trach supplies. Patient is not stable for d/c without them. Hopeful for today. <Corina Watson - Last Filed: 06/02/17 08:50> Attending Addendum - Attending Addendum I personally evaluated the patient and discussed the management with Dr. Watson. I agree with the History, Examination, Assessment and Plan documented above with any addition or exceptions noted below. Stable. Has been ready to be d/c'ed but still awaiting insurance approval for medical supplies. Hopeful today. Zhen <Fátima Hayes - Last Filed: 06/04/17 09:19>
[2017-06-02] MEDS ORDERED: Polyethylene Glycol 3350 17 GM Packet PO PRN (06:42)
[2017-06-02] MEDS: Metoprolol Tartrate 50 MG TAB PO SCH (07:52)
[2017-06-02] MEDS: predniSONE 20 MG TAB PO SCH (07:52)
[2017-06-02] MEDS: Rivaroxaban 15 MG TAB PO SCH (07:52)
[2017-06-02] MEDS: Furosemide 40 MG TAB PO SCH (07:53)
[2017-06-02] MEDS: Senokot S 8.6-50 MG TAB PO SCH (07:53)
[2017-06-02] MEDS: Pregabalin 75 MG CAP PO SCH (07:53)
[2017-06-02] MEDS: Finasteride 5 MG TAB PO SCH (07:54)
[2017-06-02] MEDS ORDERED: Potassium Chloride 10 MEQ TAB PO SCH (08:00)
[2017-06-02] MEDS: Nicotine 14 MG PATCH TD SCH (08:00)
[2017-06-02] MEDS: HYDROcodone/Acetaminophen 5/325 mg Tablet PO PRN (10:20)
[2017-06-02] MEDS ORDERED: Nicotine 7 MG PATCH TD SCH (11:00)
[2017-06-02 11:53] VITALS: TEMP 98.6
--- NOTE | 2017-06-02 15:26 | PRG ---
DATE OF SERVICE: 06/02/2017 SUBJECTIVE: Mr. Cedillo, I believe he is finally going home today. He has been waiting one week for home supplies now because of insurance company delays and lack of ap proval for an item that is for home health supplies that are or not negotiable. He has a tracheostom y and has to have these supplies. I will see him in the office in 2-3 weeks after discharge.
[2017-06-02 16:02] VITALS: BP 141/65
--- NOTE | 2017-06-06 09:44 | DIS-2 ---
DATE OF ADMISSION: 05/16/2017 DATE OF DISCHARGE: 06/02/2017 RESIDENT: Corina Watson M.D. ADMITTING ATTENDING: Andrew Corey M.D. DISCHARGE ATTENDING: Fátima Hayes M.D. CONSULTS: Dr. Aguilera with Pulmonology, Dr. Barkley with Urology, and Dr. England with Cardiology. PROCEDURES: 1. Chest x-ray (05/16/2017): New pleural and parenchymal opacity in the right lung base, just pleur al effusion and possible mild volume loss and/or infectious pneumonitis. Recommend followup PA and l ateral imaging of the chest following treatment to document resolution. 2. Vascular ultrasound (05/16/2017): No evidence of deep vein thrombosis of the left lower extremit y. 3. Chest thorax CTA (05/16/2017): Findings are consistent with pulmonary embolism in the right lowe r lobe. Discussed over the telephone with ER physician, Dr. Mora. 4. Echocardiogram (05/16/2017): Technically difficult exam. Overall left ventricular function is n ormal. Ejection fraction visually estimated at 50% to 55%. Left atrium is mildly dilated. Mild alonso ral regurg is present. Mild tricuspid regurgitation. 5. Vascular ultrasound (05/16/2017): No evidence of DVT in the right lower extremity. Right subcla vian triple-lumen catheter and tracheostomy tube placement on 05/19/2017. 6. Abdominal x-ray (05/20/2017): Visualized bowel gas pattern that is nonspecific. Metallic tip of Dobbhoff feeding catheter projects over the left upper quadrant overlying the expected location of th e gastric body, just beyond the gastroesophageal junction. Catheter may be desired more distally so that advancing it approximately 7 cm would result in better position. 7. Chest x-ray (05/21/2017): Adjacent pleural and parenchymal opacity changes seen in the rig ht upper lobe. demonstrated in the most recent study. Consider a short-term followup. 8. Abdominal and pelvis CT (05/23/2017): Bilateral lower lung parenchymal, unfortunately this worse in the right lung base. No renal calculus or acute gastrointestinal obstruction. Bilateral fat-con taining inguinal hernias. Colonic diverticulosis without acute diverticulitis. Minimal nonspecific scattered areas of subcutaneous fat stranding of the anterior abdomen. 9. Chest x-ray (05/23/2017): Similar appearance of the chest. Previously noted nodular density, ri ght upper lobe, was likely on the prior exam. 10. Knee x-ray (05/23/2017): Degenerative changes, no acute abnormality. PRIMARY DIAGNOSES: 1. Chronic obstructive pulmonary disease. 2. Evidence of hematuria. 3. Obesity hypoventilation syndrome. 4. Pulmonary embolism. 5. Chronic acquired lymphedema. 6. Fibromyalgia. 7. Left knee pain. 8. Obesity. 9. Tobacco abuse. 10. Acute hypercapnic respiratory failure, status post tracheostomy placement. 11. Elevated troponin. DISCHARGE MEDICATIONS: 1. Finasteride 5 mg p.o. daily. 2. Furosemide 20 mg p.o. daily. 3. DuoNeb 3 mL nebulized q.6 hours. 4. Metoprolol 50 mg p.o. b.i.d. 5. Nicotine replacement 14 mg transdermal q.24 hours. 6. Lyrica 75 mg p.o. b.i.d. 7. Xarelto 20 mg daily. 8. Flomax 0.4 mg p.o. at bedtime. 9. Tylenol #3 one tablet p.o. q.6 hours p.r.n. pain. HISTORY OF PRESENT ILLNESS/HOSPITAL COURSE: Please see Dr. Valencia's transition of care note dated 0 05/26/2017 that summarizes the patient's hospital stay up until that point. He presented with lower e xtremity edema and erythema and was noted to have pulmonary embolism and was therefore admitted. He became progressively short of breath and was transferred to the [facility] for BiPAP, which he remained on until need for intubation was determined. He required tracheostomy placement, and shortly thereafter was able to come off the ventilator in stable condition. In the following days, he was transferred to the floor and remained stable. During that time, he went to care for his tracheostomy at home and was very sufficient prior to discharge. The patient's discharge was held up for numerous days, karen use of insurance issues and the fact that it was unsafe for the patient to be discharged home without critical tracheostomy care supplies including suctions. I assumed his care, at which point, he was very stable, tolerating p.o., ambulating and without complaint. He was discharged home in stable con dition with instructions to follow up with newly established PCP, Dr. Valencia, as well as Dr. Aguilera. DISPOSITION: Stable. DISCHARGE INSTRUCTIONS: 1. Location: Home. 2. Diet: Heart healthy. 3. Activity: As tolerated. 4. Followup: With Dr. Valencia within 1 week of discharge and Dr. Aguilera within 2-3 weeks of discharg e.
== END 2017-06-02 18:20 | disposition home or self-care (01) | DRG 4 ==
LOC: ERS 12:24 → 2NO 19:33 → IMCU/EMU 05-17 02:48 → CCU 05-18 11:28 → ONC 05-24 00:44
PROVIDERS: ADMIT Student in an Organized Health Care Education/Training Program; ATTEND Student in an Organized Health Care Education/Training Program
PROC: 5A1945Z Respiratory Ventilation, 24-96 Consecutive Hours (ICD-10-PCS; 2017-05-18)
PROC: 0B9B8ZZ Drainage of Left Lower Lobe Bronchus, Via Natural or Artificial Opening Endoscopic (ICD-10-PCS; 2017-05-18)
PROC: 0B968ZZ Drainage of Right Lower Lobe Bronchus, Via Natural or Artificial Opening Endoscopic (ICD-10-PCS; 2017-05-18)
PROC: 0BH17EZ Insertion of Endotracheal Airway into Trachea, Via Natural or Artificial Opening (ICD-10-PCS; 2017-05-18)
PROC: 0B110F4 Bypass Trachea to Cutaneous with Tracheostomy Device, Open Approach (ICD-10-PCS; principal; 2017-05-19)
PROC: 02HV33Z Insertion of Infusion Device into Superior Vena Cava, Percutaneous Approach (ICD-10-PCS; 2017-05-19)
PROC: 0B21XFZ Change Tracheostomy Device in Trachea, External Approach (ICD-10-PCS; 2017-05-26)
DX: I26.99 Other pulmonary embolism without acute cor pulmonale (principal); J96.21 Acute and chronic respiratory failure with hypoxia; I50.33 Acute on chronic diastolic (congestive) heart failure; J44.1 Chronic obstructive pulmonary disease with (acute) exacerbation; J96.22 Acute and chronic respiratory failure with hypercapnia; I24.8 Other forms of acute ischemic heart disease; E66.2 Morbid (severe) obesity with alveolar hypoventilation; I42.9 Cardiomyopathy, unspecified; F17.210 Nicotine dependence, cigarettes, uncomplicated; G47.30 Sleep apnea, unspecified; M79.7 Fibromyalgia; Z68.36 Body mass index [BMI] 36.0-36.9, adult; G47.33 Obstructive sleep apnea (adult) (pediatric); Z77.090 Contact with and (suspected) exposure to asbestos; R31.0 Gross hematuria; Z66 Do not resuscitate; I11.0 Hypertensive heart disease with heart failure
CPT/HCPCS: 36415; 36416; 71045; 71275; 74018; 74178; 80048; 80053; 80061; 80076; 81003; 81015; 82553; 82607; 82746; 82805; 83036; 83605; 83690; 83735; 83880; 84100; 84443; 84484; 85014; 85018; 85025; 85049; 85379; 85610; 85730; 87040; 93005; 93010; 93306; 94002; 94003; 94640; 94660; 94760; 96372; 96374; A4216; C9113; G8978-GP-CL; G8979-GP-CI; G8996-GN-CN; G8997-GN-CK; G9171-GN-CI; G9172-GN-CI; J1650; J1940; J1956; J2250; J2704; J2920; J3010; J7050; J7506; J7620; S0020

== ENCOUNTER 2017-06-29 13:26 | Outpatient (CLI) | payer MEDICARE ==
--- NOTE | 2017-06-29 15:13 | RAD ---
CHEST PA AND LATERAL: Date: 06/29/17 HISTORY: 66-year-old male with history of dyspnea. COMPARISON: 05/23/17. FINDINGS: Tracheostomy tube in place. Bilateral pleural thickening, worse on the right side, but overall stable with some minimal linear and parenchymal changes in the bases, also stable. No evidence for acute ed olivier or confluent pneumonia. IMPRESSION: Overall stable appearing bilateral pleural and parenchymal changes, particularly on the right and the right base. Stable tracheostomy tube. No new process. POS: ANGEL
== END 2017-06-29 13:27 | disposition home or self-care (01) ==
LOC: RAD 13:26
PROVIDERS: ATTEND Internal Medicine Critical Care Medicine
DX: R06.00 Dyspnea, unspecified (principal)
CPT/HCPCS: 71046

== ENCOUNTER 2019-03-26 10:20 | Outpatient (CLI) | payer MEDICARE ==
--- NOTE | 2019-03-26 11:20 | RAD ---
PA AND LATERAL VIEWS CHEST: Date: 03/26/19 HISTORY: Dyspnea. COMPARISON: 06/29/17. FINDINGS: Tracheostomy tube remains in place. The heart size is stable. Chronic changes are again seen bilatera lly. No lobar consolidation, pneumothoraces, or pleural effusions are identified. There are degenerat megan changes in the spine. IMPRESSION: No acute process. POS: ANGEL
== END 2019-03-26 10:21 | disposition home or self-care (01) ==
LOC: RAD 10:20
PROVIDERS: ATTEND Internal Medicine Critical Care Medicine
DX: R06.00 Dyspnea, unspecified (principal)
CPT/HCPCS: 71046

== ENCOUNTER 2020-04-13 03:45 | Inpatient (IN) | payer MEDICARE ==
[2020-04-13] MEDS ORDERED: Ondansetron PF 4 MG/2 ML Vial ONE (04:26)
[2020-04-13] MEDS ORDERED: Morphine 4 MG/ML VIAL ONE (04:26)
[2020-04-13 05:07] LABS: #Lymphocytes 0.3 thou/uL (1.20-3.40); #Monocytes 0.4 thou/uL (0.11-0.59); %Eosinophils 0.3 % (0.0-10.0); %Lymphocytes 2.1 % (21.0-51.0); %Monocytes 2.8 % (0.0-10.0); %Neutrophils 94.8 % (42.0-75.0); Hemoglobin 14.3 g/dL (14.0-18.0); Mean Corpuscular HGB CONC 33.8 g/dL (32.0-36.0); Mean Corpuscular Hemoglobin 32.2 pg (27.0-31.0); Mean Corpuscular Volume 95.3 fL (78.0-98.0); Platelet Count 229 thou/uL (130-400); RBC Distribution Width 12.1 % (11.5-14.5); Red Blood Cell (RBC) Count 4.43 mill/uL (4.70-6.10); White Blood Cell (WBC) Count 12.7 thou/uL (4.8-10.8)
[2020-04-13 05:33] LABS: ALT (SGPT) 22 U/L (8-55); AST (SGOT) 16 U/L (5-34); Albumin 3.6 g/dL (3.4-4.8); Alkaline Phosphatase 83 U/L (40-110); Anion Gap 14 mmol/L (10-20); BUN (Urea Nitrogen) 16 mg/dL (8.4-25.7); Bilirubin, Total 0.8 mg/dL (0.2-1.2); Calc. Creatinine Clearance 0 mL/min (70-130); Calcium 8.6 mg/dL (7.8-10.44); Carbon Dioxide 27 mmol/L (23-31); Chloride 98 mmol/L (98-107); Globulin 3.7 g/dL (2.4-3.5); Glucose 132 mg/dL (80-115); Potassium 4.4 mmol/L (3.5-5.1); Protein, Total 7.3 g/dL (5.8-8.1); Sodium 135 mmol/L (136-145)
[2020-04-13] MEDS ORDERED: Azithromycin 500 MG VIAL ONE (06:52)
[2020-04-13] MEDS ORDERED: cefTRIAXone\\ROCEPHIN 2 GM VIAL ONE (06:52)
--- NOTE | 2020-04-13 07:42 | RAD ---
EXAM: 4 views of the left knee HISTORY: Knee pain after fall COMPARISON: 05/23/2017 FINDINGS: A small knee effusion is seen. There is no evidence of acute fracture or dislocation. Mild to moderate tricompartmental degenerative changes are seen. No soft tissue swelling is present. IMPRESSION: Degenerative changes of the left knee without acute osseous abnormality.
--- NOTE | 2020-04-13 07:47 | RAD ---
EXAM: Single view of the chest HISTORY: Dyspnea COMPARISON: 05/23/2017 FINDINGS: Single view of the chest shows an enlarged but stable cardiomediastinal silhouette. The tr acheostomy is unchanged in position. There is stable elevation the right hemidiaphragm. There is no evidence of consolidation, mass, or pleural effusion. No acute osseous abnormality. IMPRESSION: Cardiomegaly without evidence of acute cardiopulmonary disease
--- NOTE | 2020-04-13 07:50 | CT ---
PRELIMINARY REPORT/[facility]/EMERGENCY AFTER HOURS PROCEDURE: EXAM: CTA Chest with Intravenous Contrast CLINICAL HISTORY: PT HAD AN ELEVATED D-DIMER WITH LOW O2 STATS TECHNIQUE: Axial CTA images of the chest with intravenous contrast. Three-dimensional MIP/volume rend ered reformations were performed. CONTRAST: With; ISOVUE 370; 66ML COMPARISON: 05/16/2017. FINDINGS: PULMONARY ARTERIES There is no intraluminal filling defect suspicious for PE. AORTA No thoracic aortic aneurysm or dissection. LUNGS Mild infiltrates identified in both lower lungs. Slight bilateral lower lung effusions. Under lying chronic obstructive pulmonary change with mild fibrosis. The central airways patent. A trache ostomy tube is identified. PLEURAL SPACES No pleural effusion. No pneumothorax. HEART AND MEDIASTINUM No cardiomegaly. No significant pericardial effusion. LYMPH NODES No lymphadenopathy. BONES No focal osseous abnormality or acute fracture. CHEST WALL AND UPPER ABDOMEN Images through the upper abdomen are unremarkable. The chest wall is unr emarkable. A small hiatal hernia is noted. The liver is fatty infiltrated. IMPRESSION: There is no evidence of pulmonary arterial emboli. Bilateral lower lung infiltrates are n oted. Slight bilateral effusions. Underlying chronic obstructive changes with mild fibrosis. A tra cheostomy tube is noted and properly positioned. No pneumothorax.. ELECTRONICALLY SIGNED BY: Lisbet Keneny DO Apr 13, 2020 6:20:26 AM [employer] FINAL REPORT CTA OF THE CHEST WITH CONTRAST: COMPARISON: 05/16/2017. FINDINGS/IMPRESSION: I agree with the findings and impression given in the preliminary report per [facility] physici an. 1. No evidence of pulmonary thromboembolism. 2. Bibasilar atelectasis versus infiltrates. 3. Fatty liver. POS: ANNA MARIE
[2020-04-13] MEDS ORDERED: Iopamidol 370 76% 100 ML VIAL ONE (09:23)
[2020-04-13] MEDS ORDERED: Bisacodyl 5 MG TAB PO PRN (09:24)
[2020-04-13] MEDS ORDERED: Ondansetron PF 4 MG/2 ML Vial IVP PRN (09:24)
[2020-04-13] MEDS ORDERED: Acetaminophen 325 MG TAB PO PRN (09:24)
[2020-04-13] MEDS ORDERED: Ondansetron ODT 4 MG TAB PO PRN (09:24)
[2020-04-13] MEDS ORDERED: Calcium Carbonate 500 MG ChewTAB PO PRN (09:24)
[2020-04-13] MEDS ORDERED: Senokot S 8.6-50 MG TAB PO PRN (09:24)
[2020-04-13] MEDS ORDERED: Dextrose 5% in Water 1,000 ML IV PRN (09:36)
[2020-04-13] MEDS ORDERED: HumaLOG 300 UNITS/3 ML VIAL SC PRN ×2 (09:36)
[2020-04-13] MEDS ORDERED: Dextrose 50% Abboject 50 ML SYRINGE SLOW IVP PRN (09:36)
[2020-04-13 10:09] LABS: SARS-CoV-2 NAA Rapid Test Not Detected (NotDetected)
--- NOTE | 2020-04-13 10:34 | HP ---
PRIMARY CARE PHYSICIAN: Darvin Amaro MD CHIEF COMPLAINT: Left knee pain. HISTORY OF PRESENT ILLNESS: The patient is a 69-year-old male with past medical history significant for obesity, hypoventilation syndrome, COPD, pulmonary embolism, status post tracheostomy (2018), rheumatoid arthritis, fibromyalgia, DM 2, HTN, that presents to the emergency department via EMS for the above complaint. The patient reports left knee pain for the past 4 days after stepping out of his truck and "twisting" his knee. He reports that he had difficulty ambulating. He reports some mild swelling, no redness. He has been lying in his recliner for the past several days because it has been difficult to ambulate. Denies any chest pain, heart palpitations, SOB, hemoptysis, swelling to lower extremities, fever/chills, abdominal pain, hematachezia/melena or diarrhea. He called EMS. When EMS arrived, the patient was found to be hypoxic with an O2 saturation of 85% on room air. The patient did take an albuterol inhaler prior to EMS arriving at his home. EMS administered steroids, oxygen, and magnesium sulfate and brought the patient in for further evaluation. On presentation, the patient was found to be hypertensive and tachycardic with regular respirations and O2 saturation 98% on 2 L nasal cannula. He was afebrile. X-ray of the left knee was negative for any acute process. The patient's EKG was sinus tachycardia, 105 beats per minute with right bundle- branch block. No ST elevations. D-dimer was 2.03. CTA of chest was negative for PE, but was positive for bibasilar infiltrates. His troponin negative. WBCs 12.7. The patient was given Rocephin, azithromycin, and will be admitted to the floor for further medical therapy. PAST MEDICAL HISTORY: 1. COPD. 2. PE, status post tracheostomy (2018). 3. Diabetes, type 2, non-insulin dependent. 4. Hypertension. 5. Rheumatoid arthritis. 6. Fibromyalgia. 7. Hypoventilation syndrome. 8. Obesity. PAST SURGICAL HISTORY: 1. Tonsillectomy. 2. Tracheostomy in 2018. SOCIAL HISTORY: The patient lives with his spouse. He dips tobacco for greater than 30 years. He has no history of illicit drug use or heavy alcohol intake. He is retired and disabled. He ambulates without any assistive devices. FAMILY HISTORY: His father is contributory for cardiac disease. ALLERGIES: PENICILLIN. HOME MEDICATIONS: 1. Ellipta inhaler. 2. Metformin 500 mg p.o. at bedtime. 3. Lasix 40 mg p.o. q.a.m. 4. Lisinopril 40 mg p.o. q.a.m. 5. Gabapentin 300 mg p.o. q.8 hours p.r.n. pain and neuropathy. 6. Morphine 15 mg p.o. at bedtime p.r.n. breakthrough pain. 7. Hydrocodone, unknown dose p.o. four times a day. REVIEW OF SYSTEMS: All review of systems are negative unless otherwise stated in the HPI. PHYSICAL EXAMINATION: VITAL SIGNS: Temperature 97.9, blood pressure 146/63, pulse 60, respirations 16, and oxygen saturation 98% on room air. Vital signs are stable. CONSTITUTIONAL: The patient is alert and oriented. No acute distress. Nontoxic in appearance. HEAD: Atraumatic, normocephalic. EYES: PERRLA. Extraocular muscles intact. Sclerae are nonicteric. NECK: Full range of motion. No cervical spinous tenderness. No cervical adenopathy. Trachea midline. Tracheostomy in place with speaking valve. RESPIRATORY/CHEST: Respirations are even and unlabored. They are diminished throughout. Unable to appreciate rales, some rhonchi or wheezes. CARDIOVASCULAR: S1 and S2 appreciated. No murmurs, rubs, or gallops. ABDOMEN: Soft, large, nontender. Active bowel sounds. No guarding or rigidity. No rebound tenderness. Negative Rovsing's sign. Negative Quiñones's sign. BACK: Full range of motion. No central spinous tenderness. No CVA tenderness. EXTREMITIES: Upper extremities; full range of motion, normal strength, sensation intact. Palpable radial pulses. Lower extremities; full range of motion. Normal strength. Sensation is intact. Palpable pedal pulses. No swelling. Hemosiderin staining. NEUROLOGIC: GCS of 15. No focal motor deficits. SKIN: Clean, dry, and intact. Bilateral lower extremities have hemosiderin staining. PSYCHIATRIC: No SI/HI. Alert and oriented x4. LABORATORY DATA AND DIAGNOSTICS: EKG was sinus tachycardia. Right bundle- branch block, 105 beats per minute. Chest x-ray showed cardiomegaly without evidence of any acute cardiopulmonary disease. X-ray of the left knee showed degenerative changes of the left knee without any acute osseous abnormality. CTA of the chest was negative for any pulmonary embolism and positive for bibasilar atelectasis versus infiltrates and fatty liver. D-dimer was 2.03. Sodium 135, potassium 4.4, chloride 98, carbon dioxide 27, BUN 16, creatinine 0.79, glucose 132, lactic acid 0.9, calcium 8.6, total bilirubin 0.8, AST 16, ALT 22, and alkaline phosphatase 83. Troponin was negative. BNP 21.8. WBCs 12.7, hemoglobin 14.3, hematocrit 42.2, and platelets 229. IMPRESSION: 1. Acute respiratory failure with hypoxia. 2. Pneumonia. 3. Sepsis. 4. Left knee pain. 5. Chronic obstructive pulmonary disease. 6. History of pulmonary embolism, status post tracheostomy in 2018. 7. Hypoventilation syndrome. 8. Diabetes, type 2, non-insulin dependent. 9. Hypertension. 10. Rheumatoid arthritis. 11. Fibromyalgia. 12. Obesity. PLAN: A 69-year-old male presented hypoxic on room air. The patient presented tachycardic and hypoxic with CT of chest showing bilateral infiltrates. WBCs were 12.7. Lactic acid 0.9. Blood cultures are pending. We will continue the patient on Rocephin and azithromycin IVPB. Consult pulmonology. We will add cough medicine p.r.n. Supplemental oxygen as needed. We will check a procalcitonin. In terms of his diabetes, we will place the patient on moderate intermittent sliding scale and Accu-Cheks a.c. and at bedtime. We will hold his metformin for now. In terms of his COPD and tracheostomy, we will order trach care every shift. We will restart home dose of Ellipta when reconciled by nursing. In terms of his rheumatoid arthritis and fibromyalgia, we will start his home medications when reconciled by nursing. For his left knee, we will consult Physical Therapy and order RICE therapy. SCDs for deep venous thrombosis prophylaxis. Lovenox for deep venous thrombosis prophylaxis. Protonix for gastrointestinal prophylaxis. Code status is full code. Discussed the case with attending physician, Dr. Gomez. Job ID: [id number] [facility]
[2020-04-13 11:20] LABS: Troponin I 0.014 ng/mL (< 0.028)
[2020-04-13 13:11] VITALS: BMI 33.4
[2020-04-13] MEDS ORDERED: Polyethylene Glycol 3350 17 GM Packet PO PRN (14:25)
--- NOTE | 2020-04-13 14:30 | PDOC.BPN ---
- Brief Progress Note Encounter Date: 04/13/20 Encounter Time: 14:26 Pt evaluated and discussed with ANATOLY August. He c/o left knee pain s/p twisting injury, the reason EMS was contacted. He denies any significant resp sx. Exam - decreased breath sounds at bases bilateral. Heart - normal s1/s2, abd soft, nt/nd. Left knee - edematous/ttp along joint line with likely effusion. Imp - acute resp failure with hypoxia Bilateral pneumonia Sepsis - although unlikely left knee pain - likely ligament tear, possible meniscal inury DM COPD - stable RA/fibromyalgia HTN Obesity hypoventilation syndrome Agree with plan outlined by ANATOLY August except no GI prophylaxis needed. Will add topical diclofenac for pain, and prn bowel meds as pt c/o some constipation. No questions or further needs at end of eval
[2020-04-13] MEDS ORDERED: HYDROcodone/Acetaminophen 5/325 mg Tablet PO SCH ×2 (14:45→17:00)
[2020-04-13] MEDS: Gabapentin 300 MG CAP PO SCH ×2 (15:04→20:12)
[2020-04-13 15:47] LABS: Bacteria/HPF None Seen HPF (None Seen); Bilirubin Negative (Negative); Blood, Urine Negative (Negative); Clarity Clear (Clear); Glucose, Urine (Dipstick) Normal (Negative); Ketone, Urine Negative (Negative); Leukocyte Negative Leu/uL (Negative); Mucous/LPF 1+ LPF (<2+); Nitrite Negative (Negative); Protein, Urine (Dipstick) 20 mg/dL (Neg-Trace); RBC/HPF 0-3 HPF (0-3); Specific Gravity, Urine 1.031 (1.002-1.036); Squamous Epithelial None Seen HPF (0-3); WBC/HPF 0-3 HPF (0-3)
[2020-04-13 15:48] LABS: Sperm/HPF Rare HPF (None Seen)
[2020-04-13 15:53] LABS: Troponin I 0.015 ng/mL (< 0.028)
[2020-04-13] MEDS: Diclofenac 1% 100 GM GEL TP SCH ×2 (18:17→21:23)
[2020-04-13] MEDS: Mometasone 100 MCG/Formoterol 5 MCG 120 PUFF INHALER INH SCH (19:40)
[2020-04-13] MEDS: Enoxaparin Sodium 40 MG/0.4 ML SYRINGE SC SCH (20:11)
[2020-04-13] MEDS: HYDROcodone/Acetaminophen 5/325 mg Tablet PO SCH (20:12)
[2020-04-13] MEDS ORDERED: Bupropion 150 MG SR TAB PO SCH (21:00)
[2020-04-13] MEDS ORDERED: Non-Formulary Item 1 EACH (Fluticasone/Umeclidin/Vilanter [Trelegy Ellipta 100-62.5-25] 1 IH SCH (21:00)
[2020-04-13] MEDS: Morphine ER 15 MG TAB PO SCH (21:22)
[2020-04-14] MEDS: HYDROcodone/Acetaminophen 5/325 mg Tablet PO SCH ×4 (02:05→20:40)
[2020-04-14 04:25] LABS: #Eosinphils 0.1 thou/uL (0.0-0.7); #Lymphocytes 1.3 thou/uL (1.20-3.40); #Monocytes 1.3 thou/uL (0.11-0.59); #Neutrophils 10.2 thou/uL (1.40-6.50); %Basophils 0.3 % (0.0-1.0); %Eosinophils 0.5 % (0.0-10.0); %Lymphocytes 10.1 % (21.0-51.0); %Monocytes 10.1 % (0.0-10.0); Hemoglobin 12.8 g/dL (14.0-18.0); Mean Corpuscular HGB CONC 31.6 g/dL (32.0-36.0); Mean Corpuscular Hemoglobin 30.5 pg (27.0-31.0); Mean Corpuscular Volume 96.3 fL (78.0-98.0); Mean Platelet Volume 7.2 fL (7.4-10.4); Platelet Count 257 thou/uL (130-400); Red Blood Cell (RBC) Count 4.22 mill/uL (4.70-6.10); White Blood Cell (WBC) Count 12.9 thou/uL (4.8-10.8)
[2020-04-14 04:43] LABS: Anion Gap 11 mmol/L (10-20); BUN (Urea Nitrogen) 26 mg/dL (8.4-25.7); Calc. Creatinine Clearance 107 mL/min (70-130); Calcium 8.8 mg/dL (7.8-10.44); Carbon Dioxide 34 mmol/L (23-31); Chloride 95 mmol/L (98-107); Glucose 124 mg/dL (80-115); Potassium 5.4 mmol/L (3.5-5.1); Sodium 135 mmol/L (136-145)
[2020-04-14] MEDS ORDERED: cefTRIAXone\\ROCEPHIN 1 GM in Sodium Chloride 0.9% 100 ML IVPB SCH (06:00)
--- NOTE | 2020-04-14 07:14 | CON ---
DATE OF CONSULTATION: HISTORY OF PRESENT ILLNESS: Mahad Cedillo is a 69-year-old obese gentleman, who apparently had some issues with his left knee, twisted, had some pain, discomfort, came into the ER because of knee problems, but apparently was found to have oxygen saturations that are low. He has a permanent trach in place now for a long period of time. When I came to see him in the room, he was denying any discomfort. No shortness of breath. No coughing. No wheezing. No chest pain. In fact, his left knee was better. He was eager to go home tomorrow. His ER blood pressure was 180/114, his saturations were 98% on 2 L. PAST MEDICAL HISTORY: Congestive heart failure, obesity, diabetes, hypertension, fibromyalgia, rheumatoid arthritis, sleep apnea. PAST SURGICAL HISTORY: Tonsils, trach. HOME MEDICATIONS: Include: 1. Hydrocodone. 2. Morphine. 3. Trelegy inhaler. 4. Lasix. 5. Gabapentin. 6. Metformin. 7. Lisinopril. ALLERGIES: NONE. REVIEW OF SYSTEMS: Ten-point negative. PHYSICAL EXAMINATION: VITAL SIGNS: Temperature 98, pulse 79, sats are 91% on 2 L, trach in place, blood pressure 130/99. CHEST: No wheezing. No crackles. CARDIAC: Normal S1, S2. No gallops. ABDOMEN: No masses. LABORATORY DATA: White count 12,000. His alston test is negative. X-ray shows no acute infiltrates. CT shows no pulmonary emboli. X-rays of his knee show DJD changes. IMPRESSION: 1. Left knee degenerative joint disease. 2. Morbid obesity. 3. Sleep apnea. 4. Permanent trach, 3 years. 5. Chronic obstructive pulmonary disease. 6. Ongoing tobacco abuse. PLAN: He appears to be stable at this stage. We will continue present treatment. We will notify Dr. Aguilera. Consultation note, 70 minutes, 50% direct patient care. Job ID: [id number]
[2020-04-14] MEDS: Mometasone 100 MCG/Formoterol 5 MCG 120 PUFF INHALER INH SCH ×2 (07:30→20:13)
[2020-04-14] MEDS ORDERED: Azithromycin 500 MG in Sodium Chloride 0.9% 250 ML 250 ML IVPB SCH (08:00)
[2020-04-14] MEDS: Gabapentin 300 MG CAP PO SCH ×3 (08:54→20:39)
[2020-04-14] MEDS: Furosemide 40 MG TAB PO SCH (08:54)
[2020-04-14] MEDS: Lisinopril 20 MG TAB PO SCH (08:55)
[2020-04-14] MEDS: Enoxaparin Sodium 40 MG/0.4 ML SYRINGE SC SCH ×2 (08:55→20:47)
--- NOTE | 2020-04-14 11:08 | PDOC.HOSPP ---
- Subjective Encounter Date: 04/14/20 Encounter Time: 10:45 Subjective: f/u for PNA/hypoxia in context of obesity hypoventilation syndrome s/p chronic trach. Overall feeling well, O2 @ 2L/min NC/Zithromax/Rocephin. - Objective Vital Signs & Weight: Vital Signs (12 hours) Temp Pulse Resp BP BP Pulse Ox 04/14/20 08:21 97.6 F 90 16 118/59 L 92 L 04/14/20 07:30 85 20 92 L 04/14/20 03:49 98.0 F 84 14 97/55 L 92 L 04/14/20 01:01 95 04/13/20 23:53 98.2 F 91 14 103/53 L 92 L 04/13/20 23:22 95 18 94 L Weight Weight 220 lb Result Diagrams: 04/14/20 03:39 04/14/20 03:40 Additional Labs: Accuchecks 04/13/20 04/13/20 21:09 15:59 POC Glucose 97 132 H Laboratory Tests 04/13/20 04/13/20 04/13/20 04:52 04:53 04:53 WBC 12.7 H D-Dimer 2.03 H Potassium 4.4 Lactic Acid Influenza A RNA INAAT Influenza B RNA INAAT SARS-CoV-2 Rap RNA(RT-PCR) 04/13/20 04/13/20 07:07 09:08 WBC D-Dimer Potassium Lactic Acid 0.9 Influenza A RNA INAAT Not Detected Influenza B RNA INAAT Not Detected SARS-CoV-2 Rap RNA(RT-PCR) Not Detected Radiology Reviewed by me: Yes (CTA chest - bibasilar atelectasis/infiltrates) Hospitalist ROS - Medication Medications: Active Medications Generic Name Dose Route Start Last Admin Trade Name Freq PRN Reason Stop Dose Admin Hydrocodone Bitart/Acetaminophen 1 tab 04/13/20 20:00 04/14/20 08:53 Hydrocodone/Acetaminophen 5/325 Mg Tablet PO 1 tab 0200,0800,1400,2000 CJ Administration Albuterol/Ipratropium 3 ml 04/13/20 19:00 04/14/20 07:30 Ipratropium/Albuterol Sulfate 3 Ml Neb NEB 3 ml [id number] CJ Administration Diclofenac Sodium 0 gm 04/13/20 17:00 04/13/20 21:23 Diclofenac 1% 100 Gm Gel TP Not Given QID CJ Enoxaparin Sodium 40 mg 04/13/20 21:00 04/14/20 08:55 Enoxaparin Sodium 40 Mg/0.4 Ml Syringe SC 40 mg 0900,2100 CJ Administration Furosemide 40 mg 04/14/20 09:00 04/14/20 08:54 Furosemide 40 Mg Tab PO 40 mg DAILY CJ Administration Gabapentin 300 mg 04/13/20 15:00 04/14/20 08:54 Gabapentin 300 Mg Cap PO 300 mg TID CJ Administration Ceftriaxone Sodium 1 gm/ 100 mls @ 200 mls/hr 04/14/20 06:00 04/14/20 06:41 Sodium Chloride IVPB 100 mls 0600 CJ Administration Azithromycin 500 mg/ Sodium 250 mls @ 250 mls/hr 04/14/20 08:00 04/14/20 08:55 Chloride IVPB 250 mls 0800 CJ Administration Lisinopril 40 mg 04/14/20 09:00 04/14/20 08:55 Lisinopril 20 Mg Tab PO 40 mg DAILY CJ Administration Mometasone Furoate/Formoterol Fumar 1 puff 04/13/20 18:30 04/14/20 07:30 Mometasone 100 Mcg/Formoterol 5 Mcg 120 Puff Inhaler INH 1 puff BID-RT CJ Administration Morphine Sulfate 15 mg 04/13/20 21:00 04/13/20 21:22 Morphine Er 15 Mg Tab PO 15 mg HS CJ Administration - Exam General Appearance: NAD, awake alert Eye: PERRL, anicteric sclera ENT: normocephalic atraumatic, no oropharyngeal lesions Neck: supple, symmetric, no JVD, no thyromegaly, no lymphadenopathy Neck - other findings: trach in place Heart: RRR, no gallops, no rubs, normal peripheral pulses Heart - other findings: S1, S2 Respiratory: no wheezes Respiratory - other findings: diminished in bases Gastrointestinal: soft, non-tender, non-distended, normal bowel sounds, no palpable masses Gastrointestinal - other findings: obese Extremities: no cyanosis, no clubbing Skin: normal turgor, no lesions Neurological: cranial nerve grossly intact, no new deficit Musculoskeletal: normal tone, generalized weakness Psychiatric: normal affect, A&O x 3 Hosp A/P (1) Acute on chronic respiratory failure with hypoxia Code(s): J96.21 - ACUTE AND CHRONIC RESPIRATORY FAILURE WITH HYPOXIA Status: Acute Plan: Continue O2 supplementation, assess for home O2 (2) Pneumonia Code(s): J18.9 - PNEUMONIA, UNSPECIFIED ORGANISM Status: Acute Qualifiers: Laterality: bilateral Plan: Suspected, likely component of atelectasis, continue Zithromax/Rocephin another 24h then de-escalate, Duonebs (3) Obesity hypoventilation syndrome Code(s): E66.2 - MORBID (SEVERE) OBESITY WITH ALVEOLAR HYPOVENTILATION Status: Chronic Plan: s/p tracheostomy, may need home O2 supplementation (4) Knee pain, left Code(s): M25.562 - PAIN IN LEFT KNEE Status: Acute Plan: Improved, likely soft tissue etiology, pain control PRN (5) Obesity (BMI 30-39.9) Code(s): E66.9 - OBESITY, UNSPECIFIED Status: Chronic (6) Tobacco abuse Code(s): Z72.0 - TOBACCO USE Status: Chronic - Plan continue antibiotics, 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
[2020-04-14] MEDS: Diclofenac 1% 100 GM GEL TP SCH ×4 (11:53→20:47)
[2020-04-14] MEDS ORDERED: FLU VACC QS2020-21(65YR UP)/PF 240 MCG/0.7 ML SYRINGE IM ONE (12:15)
[2020-04-14] MEDS ORDERED: predniSONE 20 MG TAB PO SCH (15:15)
--- NOTE | 2020-04-14 16:18 | PRG ---
DATE OF SERVICE: 04/14/2020 SUBJECTIVE: Mahad Cedillo was evaluated. He was in no distress. He is resting comfortably. OBJECTIVE: VITAL SIGNS: He is afebrile. Heart rate is 90, respiratory rate 16, oximetry is 92%, blood pressure 118/59. LUNGS: He had no wheezes on exam. His expiratory phase is not prolonged. HEART: Regular rhythm. ABDOMEN: Soft. ASSESSMENT AND PLAN: I reviewed his CT of his chest. I do not see any clear-cut infiltrates that I say would definitely be consistent with pneumonia. He can be switched to enteral antibiotics and p.o. steroids. It is more likely that his distress was created by chronic obstructive pulmonary disease exacerbation. In my opinion, he appears to be improved. He may be a candidate for discharge in 24 to 48 hours. Job ID: [id number]
[2020-04-14] MEDS: Amoxicillin/Potassium Clav 875 MG TAB PO SCH (20:46)
[2020-04-14] MEDS: Morphine ER 15 MG TAB PO SCH (20:47)
[2020-04-15] MEDS: HYDROcodone/Acetaminophen 5/325 mg Tablet PO SCH ×3 (01:55→14:04)
[2020-04-15 04:41] LABS: #Lymphocytes 0.7 thou/uL (1.20-3.40); #Monocytes 0.7 thou/uL (0.11-0.59); #Neutrophils 10.7 thou/uL (1.40-6.50); %Basophils 0.2 % (0.0-1.0); %Eosinophils 0.1 % (0.0-10.0); %Lymphocytes 5.5 % (21.0-51.0); %Monocytes 5.6 % (0.0-10.0); %Neutrophils 88.6 % (42.0-75.0); Hemoglobin 13.3 g/dL (14.0-18.0); Mean Corpuscular HGB CONC 31.7 g/dL (32.0-36.0); Mean Corpuscular Hemoglobin 30.6 pg (27.0-31.0); Mean Corpuscular Volume 96.6 fL (78.0-98.0); Mean Platelet Volume 6.9 fL (7.4-10.4); Platelet Count 257 thou/uL (130-400); Red Blood Cell (RBC) Count 4.34 mill/uL (4.70-6.10); White Blood Cell (WBC) Count 12.1 thou/uL (4.8-10.8)
[2020-04-15 05:01] LABS: Anion Gap 14 mmol/L (10-20); BUN (Urea Nitrogen) 22 mg/dL (8.4-25.7); Calc. Creatinine Clearance 131 mL/min (70-130); Calcium 8.8 mg/dL (7.8-10.44); Carbon Dioxide 32 mmol/L (23-31); Chloride 97 mmol/L (98-107); Glucose 113 mg/dL (80-115); Potassium 5.5 mmol/L (3.5-5.1); Sodium 137 mmol/L (136-145)
[2020-04-15] MEDS ORDERED: predniSONE 20 MG TAB PO SCH (08:00)
[2020-04-15 08:05] VITALS: BP 119/63; TEMP 97.8
[2020-04-15] MEDS: Mometasone 100 MCG/Formoterol 5 MCG 120 PUFF INHALER INH SCH (08:16)
[2020-04-15] MEDS: Diclofenac 1% 100 GM GEL TP SCH ×2 (08:25→11:43)
[2020-04-15] MEDS: Lisinopril 20 MG TAB PO SCH (08:26)
[2020-04-15] MEDS: Enoxaparin Sodium 40 MG/0.4 ML SYRINGE SC SCH (08:26)
[2020-04-15] MEDS: Gabapentin 300 MG CAP PO SCH ×2 (08:26→14:03)
[2020-04-15] MEDS: Furosemide 40 MG TAB PO SCH (08:27)
[2020-04-15] MEDS: Amoxicillin/Potassium Clav 875 MG TAB PO SCH (08:27)
--- NOTE | 2020-04-16 14:17 | DIS ---
DATE OF ADMISSION: 04/13/2020 DATE OF DISCHARGE: 04/15/2020 DISCHARGE DIAGNOSES: 1. Acute chronic obstructive pulmonary disease exacerbation. 2. Acute on chronic hypoxic respiratory failure. 3. Obesity hypoventilation syndrome, status post tracheostomy placement. 4. Left knee pain, stable. CONSULTATIONS: Dr. Aguilera with Pulmonology Service. PERTINENT LABORATORY AND X-RAY FINDINGS: Sodium ranged between 135 to 137. Potassium ranged between 4.4 to 5.5. Lactic acid level 0.9. BNP 22. CBC showed a white blood cell count ranging between 12.1 to 12.9, hemoglobin ranging between 12.8 to 14.3. D-dimer 2.03. Influenza A and B antigen negative, 04/13/2020. COVID-19 PCR not detected, 04/13/2020. Blood cultures x2 dated 04/13/2020, showed 1/2 positive for coagulase-negative Staphylococcus species consistent with skin contaminant. Portable chest x-ray dated 04/13/2020, showed no acute cardiopulmonary process. Cardiomegaly noted. Four views of the left knee dated 04/13/2020 showed degenerative changes without acute process. CT angiogram of the chest dated 04/13/2020 showed no evidence for pulmonary embolus. Bibasilar atelectasis. Fatty liver. HOSPITAL COURSE: The patient was admitted after initially presenting with increasing left knee pain with associated hypoxia. The patient underwent general evaluation including plain radiographs of the left knee showing no acute process. Likely soft tissue or ligamentous strain. The patient also was noted with hypoxia in the context of chronic hypoxic respiratory failure status post tracheostomy placement remotely. The patient underwent general evaluation including plain chest radiographs in addition to CT angiogram of the chest. The patient was noted with bibasilar atelectasis and treated for COPD exacerbation. The patient received antibiotic therapy in addition to prednisone and overall clinically stabilized. The patient was evaluated for potential home oxygen, however, was maintaining O2 saturations in the 90% range ambulatory and sedentary. Overall, the patient did remain clinically stable throughout the hospital course, tolerating regular oral intake with stable vital signs. I have examined the patient at the time of discharge and discussed followup instructions. The patient verbalized understanding and agreement and ready for discharge on 04/15/2020. DISCHARGE MEDICATIONS: 1. Gabapentin 300 mg p.o. t.i.d. 2. Lasix 40 mg p.o. daily. 3. Lisinopril 40 mg p.o. daily. 4. Metformin extended release 500 mg p.o. daily. 5. Morphine extended release 15 mg p.o. at bedtime. 6. [place] 5/325 mg one tablet p.o. q.6 hours p.r.n. 7. Trelegy Ellipta 100/62.5/25 one inhalation at bedtime. 8. Augmentin 875 mg one tablet p.o. b.i.d. x5 days. 9. Prednisone 20 mg 2 tablets p.o. daily x3 days, followed by 1 tablet p.o. daily x3 days. FOLLOWUP: The patient may follow up with his primary care provider, Dr. Darvin Amaro. The patient will follow up with Dr. Aguilera with Pulmonology Service. CONDITION ON DISCHARGE: Fair. ACTIVITY: Ad-kishore. DIET: Heart healthy and ADA. CODE STATUS: Do not attempt resuscitation. DISPOSITION: Home, 04/15/2020. TIME SPENT: Total time preparing and coordinating discharge is 37 minutes. Job ID: [id number]
== END 2020-04-15 14:50 | disposition home or self-care (01) | DRG 871 ==
LOC: ERS 03:45 → ONC 07:42 → ERHOLD 07:42 → ONC 12:31
PROVIDERS: ADMIT Family Medicine; ATTEND Family Medicine
DX: A41.9 Sepsis, unspecified organism (principal); J18.9 Pneumonia, unspecified organism; J96.01 Acute respiratory failure with hypoxia; J44.1 Chronic obstructive pulmonary disease with (acute) exacerbation; J44.0 Chronic obstructive pulmonary disease with (acute) lower respiratory infection; E66.2 Morbid (severe) obesity with alveolar hypoventilation; Z23 Encounter for immunization; Z66 Do not resuscitate; Z20.828 Contact with and (suspected) exposure to other viral communicable diseases; I50.9 Heart failure, unspecified; E11.9 Type 2 diabetes mellitus without complications; M79.7 Fibromyalgia; M06.9 Rheumatoid arthritis, unspecified; I45.10 Unspecified right bundle-branch block; M25.562 Pain in left knee; F17.210 Nicotine dependence, cigarettes, uncomplicated; Z88.0 Allergy status to penicillin; Z79.84 Long term (current) use of oral hypoglycemic drugs; Z79.899 Other long term (current) drug therapy; Z86.711 Personal history of pulmonary embolism; Z68.33 Body mass index [BMI] 33.0-33.9, adult; Z93.0 Tracheostomy status
CPT/HCPCS: 0240U; 36415; 36416; 71045; 71275; 80048; 80053; 81001; 83605; 83880; 84145; 84484; 85025; 85379; 87040; 87149; 90471; 90662; 90732; 93005; 94640; G0008; G0009; J0456; J0696; J1650; J2270; J2405; J3490; J7050; J7512; J7620; Q9967

== ENCOUNTER 2020-09-10 17:34 | Inpatient (IN) | payer MEDICARE ==
[2020-09-10 18:27] LABS: #Lymphocytes 0.9 thou/uL (1.20-3.40); #Monocytes 1.4 thou/uL (0.11-0.59); #Neutrophils 13.2 thou/uL (1.40-6.50); %Basophils 0.1 % (0.0-1.0); %Eosinophils 0.2 % (0.0-10.0); %Lymphocytes 5.9 % (21.0-51.0); %Monocytes 8.7 % (0.0-10.0); Hemoglobin 13.6 g/dL (14.0-18.0); Mean Corpuscular Hemoglobin 29.7 pg (27.0-31.0); Mean Corpuscular Volume 92.8 fL (78.0-98.0); Platelet Count 240 thou/uL (130-400); RBC Distribution Width 12.9 % (11.5-14.5); White Blood Cell (WBC) Count 15.5 thou/uL (4.8-10.8)
[2020-09-10 18:35] LABS: Bacteria/HPF None Seen HPF (None Seen); Bilirubin 1+ (Negative); Blood, Urine Negative (Negative); Clarity Clear (Clear); Glucose, Urine (Dipstick) Normal (Negative); Ketone, Urine Negative (Negative); Leukocyte Negative Leu/uL (Negative); Nitrite Negative (Negative); Protein, Urine (Dipstick) 30 mg/dL (Neg-Trace); RBC/HPF 0-3 HPF (0-3); Specific Gravity, Urine 1.028 (1.002-1.036); Squamous Epithelial None Seen HPF (0-3); Urobilinogen 6 mg/dL (Less than 2); WBC/HPF 0-3 HPF (0-3)
[2020-09-10 18:50] LABS: ALT (SGPT) 25 U/L (8-55); AST (SGOT) 16 U/L (5-34); Albumin 3.9 g/dL (3.4-4.8); Alkaline Phosphatase 95 U/L (40-110); Anion Gap 13 mmol/L (10-20); BUN (Urea Nitrogen) 15 mg/dL (8.4-25.7); Bilirubin, Total 1.1 mg/dL (0.2-1.2); Calc. Creatinine Clearance 0 mL/min (70-130); Calcium 9.6 mg/dL (7.8-10.44); Carbon Dioxide 28 mmol/L (23-31); Chloride 98 mmol/L (98-107); Globulin 3.9 g/dL (2.4-3.5); Glucose 107 mg/dL (80-115); Potassium 4.3 mmol/L (3.5-5.1); Protein, Total 7.8 g/dL (5.8-8.1); Sodium 135 mmol/L (136-145)
[2020-09-10] MEDS ORDERED: Morphine 4 MG/ML VIAL ONE ×2 (18:58→21:34)
[2020-09-10] MEDS ORDERED: Piperacillin/Tazobactam 4.5 GM VIAL ONE (18:58)
[2020-09-10] MEDS ORDERED: VANCOMYCIN 2 GRAM/400 ML BAG 2 GM in Premix Bag 1 BAG IVPB SCH (19:00)
[2020-09-10] MEDS ORDERED: Vancomycin 1 GM/200 ML BAG ONE (19:08)
[2020-09-10 20:31] LABS: SARS-CoV-2 NAA Rapid Test Not Detected (NotDetected)
[2020-09-10] MEDS ORDERED: methylPREDNISolone Sod Succ/PF 125 MG/2 ML VIAL IVP SCH (21:45)
[2020-09-10] MEDS ORDERED: Azithromycin 500 MG in Sodium Chloride 0.9% 250 ML 250 ML IVPB SCH (22:00)
[2020-09-10] MEDS ORDERED: Acetaminophen 325 MG TAB PO PRN (22:14)
[2020-09-10] MEDS ORDERED: Ondansetron ODT 4 MG TAB PO PRN (22:14)
[2020-09-10] MEDS ORDERED: Ondansetron PF 4 MG/2 ML Vial IVP PRN (22:14)
[2020-09-10] MEDS ORDERED: Dextrose 5% in Water 1,000 ML IV PRN (22:17)
[2020-09-10] MEDS ORDERED: HumaLOG 300 UNITS/3 ML VIAL SC PRN (22:17)
[2020-09-10] MEDS ORDERED: Dextrose 50% Abboject 50 ML SYRINGE SLOW IVP PRN (22:17)
[2020-09-10] MEDS: HYDROcodone/Acetaminophen 7.5/325 mg Tablet PO PRN (23:15)
[2020-09-11] MEDS: Cefepime 2 GM in Sodium Chloride 0.9% 100 ML IVPB SCH ×2 (00:15→11:41)
[2020-09-11 00:55] VITALS: BMI 36.6
[2020-09-11] MEDS: HYDROcodone/Acetaminophen 7.5/325 mg Tablet PO PRN ×5 (02:26→18:32)
[2020-09-11 05:45] LABS: #Basophils 0.1 thou/uL (0.0-0.2); #Lymphocytes 0.3 thou/uL (1.20-3.40); #Monocytes 0.4 thou/uL (0.11-0.59); #Neutrophils 13.6 thou/uL (1.40-6.50); %Basophils 0.7 % (0.0-1.0); %Eosinophils 0.1 % (0.0-10.0); %Lymphocytes 2.3 % (21.0-51.0); %Monocytes 3.1 % (0.0-10.0); %Neutrophils 93.9 % (42.0-75.0); Hemoglobin 13.2 g/dL (14.0-18.0); Mean Corpuscular HGB CONC 30.7 g/dL (32.0-36.0); Mean Corpuscular Hemoglobin 28.8 pg (27.0-31.0); Mean Corpuscular Volume 94.1 fL (78.0-98.0); Mean Platelet Volume 7.3 fL (7.4-10.4); Platelet Count 218 thou/uL (130-400); RBC Distribution Width 12.9 % (11.5-14.5); Red Blood Cell (RBC) Count 4.57 mill/uL (4.70-6.10); White Blood Cell (WBC) Count 14.5 thou/uL (4.8-10.8)
[2020-09-11 06:08] LABS: Anion Gap 11 mmol/L (10-20); BUN (Urea Nitrogen) 15 mg/dL (8.4-25.7); Calc. Creatinine Clearance 134 mL/min (70-130); Calcium 8.9 mg/dL (7.8-10.44); Carbon Dioxide 27 mmol/L (23-31); Chloride 102 mmol/L (98-107); Glucose 144 mg/dL (80-115); Sodium 135 mmol/L (136-145); Uric Acid 7.4 mg/dL (3.5-7.2)
[2020-09-11] MEDS ORDERED: Colchicine 0.6 MG TAB PO SCH (08:15)
[2020-09-11] MEDS ORDERED: Furosemide 20 MG/2 ML VIAL SLOW IVP SCH (08:15)
[2020-09-11] MEDS: Enoxaparin Sodium 40 MG/0.4 ML SYRINGE SC SCH (08:55)
[2020-09-11] MEDS: Gabapentin 300 MG CAP PO SCH ×3 (08:56→20:50)
[2020-09-11] MEDS ORDERED: methylPREDNISolone Sod Succ 40 MG VIAL IVP SCH (09:00)
[2020-09-11] MEDS: Colchicine 0.6 MG TAB PO SCH (20:50)
[2020-09-12] MEDS: HYDROcodone/Acetaminophen 7.5/325 mg Tablet PO PRN ×6 (00:45→21:59)
[2020-09-12 05:35] LABS: #Basophils 0.1 thou/uL (0.0-0.2); #Eosinphils 0.1 thou/uL (0.0-0.7); #Lymphocytes 1.3 thou/uL (1.20-3.40); %Basophils 0.5 % (0.0-1.0); %Eosinophils 0.5 % (0.0-10.0); %Lymphocytes 11.6 % (21.0-51.0); %Monocytes 8.7 % (0.0-10.0); %Neutrophils 78.6 % (42.0-75.0); Hemoglobin 12.4 g/dL (14.0-18.0); Mean Corpuscular HGB CONC 30.3 g/dL (32.0-36.0); Mean Corpuscular Hemoglobin 28.9 pg (27.0-31.0); Mean Corpuscular Volume 95.3 fL (78.0-98.0); Mean Platelet Volume 7.3 fL (7.4-10.4); Platelet Count 229 thou/uL (130-400); RBC Distribution Width 12.8 % (11.5-14.5); White Blood Cell (WBC) Count 11.5 thou/uL (4.8-10.8)
[2020-09-12] MEDS: Polyethylene Glycol 3350 17 GM Packet PO SCH (08:05)
[2020-09-12] MEDS: predniSONE 20 MG TAB PO SCH (08:05)
[2020-09-12] MEDS: Gabapentin 300 MG CAP PO SCH ×3 (08:06→21:59)
[2020-09-12] MEDS: Enoxaparin Sodium 40 MG/0.4 ML SYRINGE SC SCH (08:06)
[2020-09-12] MEDS: Colchicine 0.6 MG TAB PO SCH ×2 (08:06→22:00)
[2020-09-12] MEDS: metFORMIN XR 500 MG TAB PO SCH (16:54)
[2020-09-12] MEDS: Mometasone 100 MCG/Formoterol 5 MCG 120 PUFF INHALER INH SCH (19:05)
[2020-09-12] MEDS ORDERED: Non-Formulary Item 1 EACH (Fluticasone/Umeclidin/Vilanter [Trelegy Ellipta 100-62.5-25] 1 IH SCH (21:00)
[2020-09-13] MEDS: HYDROcodone/Acetaminophen 7.5/325 mg Tablet PO PRN ×6 (02:49→22:18)
[2020-09-13] MEDS: Mometasone 100 MCG/Formoterol 5 MCG 120 PUFF INHALER INH SCH ×2 (06:51→19:28)
[2020-09-13] MEDS: Gabapentin 300 MG CAP PO SCH ×3 (07:51→20:18)
[2020-09-13] MEDS: Enoxaparin Sodium 40 MG/0.4 ML SYRINGE SC SCH (07:51)
[2020-09-13] MEDS: Colchicine 0.6 MG TAB PO SCH ×2 (07:51→20:18)
[2020-09-13] MEDS: predniSONE 20 MG TAB PO SCH (07:51)
[2020-09-13] MEDS: Polyethylene Glycol 3350 17 GM Packet PO SCH (07:52)
[2020-09-13] MEDS: Furosemide 20 MG/2 ML VIAL SLOW IVP SCH (14:20)
[2020-09-13] MEDS: metFORMIN XR 500 MG TAB PO SCH (16:25)
[2020-09-14] MEDS: HYDROcodone/Acetaminophen 7.5/325 mg Tablet PO PRN ×6 (02:48→22:45)
[2020-09-14] MEDS: Mometasone 100 MCG/Formoterol 5 MCG 120 PUFF INHALER INH SCH ×2 (06:33→18:01)
[2020-09-14] MEDS: Furosemide 20 MG/2 ML VIAL SLOW IVP SCH ×2 (06:35→14:45)
[2020-09-14] MEDS: Colchicine 0.6 MG TAB PO SCH ×2 (07:51→20:01)
[2020-09-14] MEDS: predniSONE 5 MG TAB PO SCH (07:51)
[2020-09-14] MEDS: Gabapentin 300 MG CAP PO SCH ×3 (07:51→20:02)
[2020-09-14] MEDS: Enoxaparin Sodium 40 MG/0.4 ML SYRINGE SC SCH (07:52)
[2020-09-14] MEDS: Polyethylene Glycol 3350 17 GM Packet PO SCH (10:36)
[2020-09-14] MEDS: metFORMIN XR 500 MG TAB PO SCH (17:36)
[2020-09-15] MEDS: HYDROcodone/Acetaminophen 7.5/325 mg Tablet PO PRN ×4 (02:44→14:52)
[2020-09-15] MEDS: predniSONE 5 MG TAB PO SCH (07:31)
[2020-09-15] MEDS: Colchicine 0.6 MG TAB PO SCH (07:31)
[2020-09-15] MEDS: Gabapentin 300 MG CAP PO SCH ×2 (07:31→14:53)
[2020-09-15] MEDS: Polyethylene Glycol 3350 17 GM Packet PO SCH (07:32)
[2020-09-15] MEDS: Enoxaparin Sodium 40 MG/0.4 ML SYRINGE SC SCH (07:32)
[2020-09-15] MEDS: Mometasone 100 MCG/Formoterol 5 MCG 120 PUFF INHALER INH SCH ×2 (08:50→11:13)
[2020-09-15 15:24] VITALS: BP 144/68; TEMP 98.3
== END 2020-09-15 15:37 | disposition home health service (06) | DRG 553 ==
LOC: ERS 17:34 → SJJU 21:38
PROVIDERS: ADMIT Student in an Organized Health Care Education/Training Program; ATTEND Internal Medicine
DX: M10.9 Gout, unspecified (principal); J96.21 Acute and chronic respiratory failure with hypoxia; J44.1 Chronic obstructive pulmonary disease with (acute) exacerbation; E66.2 Morbid (severe) obesity with alveolar hypoventilation; Z68.36 Body mass index [BMI] 36.0-36.9, adult; Z20.822 Contact with and (suspected) exposure to COVID-19; I50.9 Heart failure, unspecified; I11.9 Hypertensive heart disease without heart failure; M79.7 Fibromyalgia; M06.9 Rheumatoid arthritis, unspecified; F17.220 Nicotine dependence, chewing tobacco, uncomplicated; I89.0 Lymphedema, not elsewhere classified; E11.9 Type 2 diabetes mellitus without complications; Z93.0 Tracheostomy status; Z90.89 Acquired absence of other organs; Z86.711 Personal history of pulmonary embolism; Z79.899 Other long term (current) drug therapy; Z79.51 Long term (current) use of inhaled steroids; Z79.84 Long term (current) use of oral hypoglycemic drugs
CPT/HCPCS: 0240U; 36415; 36416; 71045; 80048; 80053; 81003; 81015; 83605; 84550; 85025; 87040; 87086; 93005; 93970; 94640; 94760; 96365; 96366; 96367; 96375; 96376; J0456; J0692; J1650; J1940; J2270; J2543; J2920; J2930; J3370; J3490; J7050; J7512; J7620

== ENCOUNTER 2021-02-16 20:06 | Emergency (ER) | payer MEDICARE ==
[2021-02-16 20:45] LABS: #Monocytes 0.6 thou/uL (0.11-0.59); #Neutrophils 7.5 thou/uL (1.40-6.50); %Basophils 0.5 % (0.0-1.0); %Eosinophils 0.4 % (0.0-10.0); %Lymphocytes 11.2 % (21.0-51.0); %Monocytes 6.6 % (0.0-10.0); %Neutrophils 81.2 % (42.0-75.0); Hemoglobin 13.6 g/dL (14.0-18.0); Mean Corpuscular HGB CONC 31.6 g/dL (32.0-36.0); Mean Corpuscular Hemoglobin 28.1 pg (27.0-31.0); Mean Corpuscular Volume 88.8 fL (78.0-98.0); Platelet Count 261 thou/uL (130-400); RBC Distribution Width 13.4 % (11.5-14.5); Red Blood Cell (RBC) Count 4.83 mill/uL (4.70-6.10); White Blood Cell (WBC) Count 9.3 thou/uL (4.8-10.8)
[2021-02-16 21:07] LABS: ALT (SGPT) 22 U/L (8-55); AST (SGOT) 20 U/L (5-34); Albumin 4.1 g/dL (3.4-4.8); Alkaline Phosphatase 114 U/L (40-110); Anion Gap 13 mmol/L (10-20); BUN (Urea Nitrogen) 11 mg/dL (8.4-25.7); Bilirubin, Total 0.4 mg/dL (0.2-1.2); Calc. Creatinine Clearance 0 mL/min (70-130); Calcium 9.3 mg/dL (7.8-10.44); Carbon Dioxide 29 mmol/L (23-31); Chloride 101 mmol/L (98-107); Globulin 3.1 g/dL (2.4-3.5); Glucose 106 mg/dL (80-115); Protein, Total 7.2 g/dL (5.8-8.1); Sodium 139 mmol/L (136-145)
[2021-02-16 21:30] LABS: SARS-CoV-2 NAA Rapid Test Not Detected (NotDetected)
== END 2021-02-16 23:59 | disposition home or self-care (01) ==
LOC: ERS 20:06
DX: K59.00 Constipation, unspecified (principal); R06.02 Shortness of breath; Z20.822 Contact with and (suspected) exposure to COVID-19; E11.9 Type 2 diabetes mellitus without complications; I11.0 Hypertensive heart disease with heart failure; I50.9 Heart failure, unspecified; F17.220 Nicotine dependence, chewing tobacco, uncomplicated; J44.9 Chronic obstructive pulmonary disease, unspecified; Z79.899 Other long term (current) drug therapy
CPT/HCPCS: 71045; 80053; 84484; 85025; 93005; 99285; U0002; 36415

== ENCOUNTER 2021-03-07 13:00 | Emergency (ER) | payer MEDICARE ==
[2021-03-07] MEDS ORDERED: Glycerin Adult Supp. (24 ct jar) RC SCH (14:00)
== END 2021-03-07 15:15 | disposition home or self-care (01) ==
LOC: ERS 13:00
DX: K59.00 Constipation, unspecified (principal); E11.9 Type 2 diabetes mellitus without complications; I11.0 Hypertensive heart disease with heart failure; I50.9 Heart failure, unspecified; J44.9 Chronic obstructive pulmonary disease, unspecified; F17.220 Nicotine dependence, chewing tobacco, uncomplicated; Z79.899 Other long term (current) drug therapy; Z79.82 Long term (current) use of aspirin; Z79.84 Long term (current) use of oral hypoglycemic drugs
CPT/HCPCS: 99283

== ENCOUNTER 2022-03-02 12:58 | Emergency (ER) | payer MEDICARE ==
[2022-03-02 15:02] LABS: #Lymphocytes 0.8 thou/uL (1.20-3.40); #Monocytes 0.7 thou/uL (0.11-0.59); #Neutrophils 10.6 thou/uL (1.40-6.50); %Basophils 0.1 % (0.0-1.0); %Eosinophils 0.2 % (0.0-10.0); %Lymphocytes 6.8 % (21.0-51.0); %Monocytes 5.6 % (0.0-10.0); %Neutrophils 87.3 % (42.0-75.0); Hemoglobin 15.8 g/dL (14.0-18.0); Mean Corpuscular HGB CONC 30.4 g/dL (32.0-36.0); Mean Corpuscular Volume 95.4 fl (78.0-98.0); Mean Platelet Volume 7.9 fL (7.4-10.4); Platelet Count 200 10x3/uL (130-400); RBC Distribution Width 13.2 % (11.5-14.5); Red Blood Cell (RBC) Count 5.45 mill/uL (4.70-6.10); White Blood Cell (WBC) Count 12.1 10x3/uL (4.8-10.8)
[2022-03-02 15:30] LABS: ALT (SGPT) 27 U/L (8-55); AST (SGOT) 30 U/L (5-34); Albumin 4.2 g/dL (3.4-4.8); Alkaline Phosphatase 101 U/L (40-110); Anion Gap 12 mmol/L (10-20); BUN (Urea Nitrogen) 11 mg/dL (8.4-25.7); Bilirubin, Total 0.6 mg/dL (0.2-1.2); Calc. Creatinine Clearance 0 mL/min (70-130); Calcium 9.6 mg/dL (7.8-10.44); Carbon Dioxide 32 mmol/L (23-31); Chloride 98 mmol/L (98-107); Estimated GFR 94; Globulin 3.4 g/dL (2.4-3.5); Glucose 106 mg/dL (80-115); Lipase 32 U/L (8-78); Potassium 4.6 mmol/L (3.5-5.1); Protein, Total 7.6 g/dL (5.8-8.1); Sodium 137 mmol/L (136-145)
[2022-03-02] MEDS ORDERED: Fleet Enema 133 ML BOT FS SCH (15:30)
== END 2022-03-02 15:48 | disposition home or self-care (01) ==
LOC: ERS 12:58
DX: K59.00 Constipation, unspecified (principal); E11.9 Type 2 diabetes mellitus without complications; I11.0 Hypertensive heart disease with heart failure; I50.9 Heart failure, unspecified; J44.9 Chronic obstructive pulmonary disease, unspecified; F17.220 Nicotine dependence, chewing tobacco, uncomplicated
CPT/HCPCS: 36415; 80053; 83690; 85025